=== PATIENT | female | born 1940 | race Two or more races ===

== ENCOUNTER 2020-08-24 06:49 | Inpatient (IN) | payer OTHER ==
[~2020-08-24] VITALS: Ht 152.4 cm; Wt 45.4 kg
--- NOTE | 2020-08-24 07:04 | NUR ---
ED Nurse Note: Pt walked into the ED from home accompanied by son with complaints of dysuria onset 2 months ago. Patient stated pain on epigastric area, 4/10, non radiating. Denies injury/trauma, fever/chills, N/V/D, SOB//CP. Patient is AAOX3 and ambulatory. VSS as documented
[2020-08-24 07:14] VITALS: BP 148/78
--- NOTE | 2020-08-24 07:14 | NUR ---
ED Nurse Note: ERMD at bedside
--- NOTE | 2020-08-24 08:13 | NUR ---
ED Nurse Note: Urine sent.
--- NOTE | 2020-08-24 08:33 | Emergency Room Report ---
History of Present Illness General Chief Complaint: Female Urogenital Problems Source: Family Member Present Illness HPI 79-year-old female presents for evaluation. States she is been having dysuria for the last few months. Denies fevers or chills. Denies flank pain. Denies nausea or vomiting. No other aggravating relieving factors. Denies any other associated symptoms Allergies: Coded Allergies: No Known Allergies (Unverified , 08/24/20) COVID-19 Screening Contact w/high risk pt: No Experienced COVID-19 symptoms?: No COVID-19 Testing performed [employer]: No Patient History Past Medical History: none Past Surgical History: none Pertinent Family History: none Social History: Denies: smoking, alcohol use, drug use Now: No Immunizations: UTD Reviewed Nursing Documentation: PMH: Agreed; PSxH: Agreed Review of Systems All Other Systems: negative except mentioned in HPI Physical Exam Vital Signs Date Time Temp Pulse Resp B/P (MAP) Pulse Ox O2 Delivery O2 Flow Rate FiO2 08/24/20 06:53 98.1 85 15 150/80 (103) 95 Room Air Sp02 EP Interpretation: reviewed, normal General Appearance: no apparent distress, alert, GCS 15, non-toxic Head: normocephalic, atraumatic Eyes: bilateral eye normal inspection, bilateral eye PERRL ENT: hearing grossly normal, normal pharynx, no angioedema, normal voice Neck: full range of motion, supple/symm/no masses Respiratory: chest non-tender, lungs clear, normal breath sounds, speaking full sentences Cardiovascular #1: regular rate, rhythm, no edema Cardiovascular #2: 2+ carotid (R), 2+ carotid (L), 2+ radial (R), 2+ radial (L), 2+ dorsalis pedis (R), 2+ dorsalis pedis (L) Gastrointestinal: normal bowel sounds, non tender, soft, non-distended, no guarding, no rebound Rectal: deferred Genitourinary: normal inspection, no CVA tenderness Musculoskeletal: back normal, normal range of motion, gait/station normal, non- tender Neurologic: alert, motor strength/tone normal, oriented x3, sensory intact, responsive, speech normal Psychiatric: judgement/insight normal, memory normal, mood/affect normal, no suicidal/homicidal ideation Reflexes: 3+ bicep (R), 3+ bicep (L), 3+ tricep (R), 3+ tricep (L), 3+ knee (R), 3+ knee (L) Lymphatic: no adenopathy Medical Decision Making Diagnostic Impression: Primary Impression: Failure to thrive Qualified Codes: R62.7 - Adult failure to thrive Additional Impressions: UTI (urinary tract infection) Qualified Codes: N39.0 - Urinary tract infection, site not specified Weakness ER Course Hospital Course 79-year-old female presenting to ED with generalized weakness, unable to care for herself, poor appetite. also c/o dysuria Differential diagnoses include: Pneumonia, UTI, sepsis, dehydration, NH/unstable angina, failure to thrive Clinical course Patient placed on stretcher. On cardiac rehabilitation specialist with tachycardia. After initial history and physical, I ordered labs, IV fluids UA Labs - no leukocytosis, hb/hct stable, electrolytes ok, UA + bacteria COVID negative given IVFs. given abx. Case discussed with Dr Mancilla and they agreed to admit patient to their service for further care and support I feel this is a highly complex case requiring extensive working including EKG/Rhythm strip, Xray/CT/US, Blood/urine lab work, repeat exams while in ED, and administration of strong opiates/narcotics for pain control, admission to hospital or close patient follow up. Diagnosis - failure to thrive, UTI, weakness Patient admitted to floor in serious condition Laboratory Tests Test 08/24/20 08:13 08/24/20 08:50 Urine Color Yellow Urine Appearance Slightly cloudy Urine pH 5 (4.5-8.0) Urine Specific [place] 1.015 (1.005-1.035) Urine Protein 2+ (NEGATIVE) H Urine Glucose (UA) Negative (NEGATIVE) Urine Ketones 1+ (NEGATIVE) H Urine Blood 2+ (NEGATIVE) H Urine Nitrite Negative (NEGATIVE) Urine Bilirubin Negative (NEGATIVE) Urine Urobilinogen Normal MG/DL (0.0-1.0) Urine Leukocyte Esterase 2+ (NEGATIVE) H Urine RBC 2-4 /HPF (0 - 2) H Urine WBC 5-10 /HPF (0 - 2) H Urine Squamous Epithelial Cells Few /LPF (NONE/OCC) Urine Bacteria Moderate /HPF (NONE) H White Blood Count 7.4 K/UL (4.8-10.8) Red Blood Count 3.78 M/UL (4.20-5.40) L Hemoglobin 11.6 G/DL (12.0-16.0) L Hematocrit 35.5 % (37.0-47.0) L Mean Corpuscular Volume 94 FL (80-99) Mean Corpuscular Hemoglobin 30.7 PG (27.0-31.0) Mean Corpuscular Hemoglobin Concent 32.6 G/DL (32.0-36.0) Red Cell Distribution Width 12.0 % (11.6-14.8) Platelet Count 244 K/UL (150-450) Mean Platelet Volume 7.5 FL (6.5-10.1) Neutrophils (%) (Auto) 75.3 % (45.0-75.0) H Lymphocytes (%) (Auto) 16.7 % (20.0-45.0) L Monocytes (%) (Auto) 5.7 % (1.0-10.0) Eosinophils (%) (Auto) 1.0 % (0.0-3.0) Basophils (%) (Auto) 1.3 % (0.0-2.0) Sodium Level 130 MMOL/L (136-145) L Potassium Level 3.8 MMOL/L (3.5-5.1) Chloride Level 97 MMOL/L (98-107) L Carbon Dioxide Level 21 MMOL/L (21-32) Anion Gap 12 mmol/L (5-15) Blood Urea Nitrogen 18 mg/dL (7-18) Creatinine 1.1 MG/DL (0.55-1.30) Estimat Glomerular Filtration Rate 47.8 mL/min (>60) Glucose Level 106 MG/DL (74-106) Calcium Level 8.8 MG/DL (8.5-10.1) Total Bilirubin 0.4 MG/DL (0.2-1.0) Aspartate Amino Transf (AST/SGOT) 29 U/L (15-37) Alanine Aminotransferase (ALT/SGPT) 14 U/L (12-78) Alkaline Phosphatase 138 U/L (46-116) H Total Protein 8.0 G/DL (6.4-8.2) Albumin 3.4 G/DL (3.4-5.0) Globulin 4.6 g/dL Albumin/Globulin Ratio 0.7 (1.0-2.7) L Lipase 276 U/L (73-393) Last Vital Signs Date Time Temp Pulse Resp B/P (MAP) Pulse Ox O2 Delivery O2 Flow Rate FiO2 08/24/20 07:14 98.1 85 18 148/78 95 Room Air Status: improved Disposition: ADMITTED INPATIENT Condition: Serious Referrals: Roz Mancilla M.D. (PCP) Javi Whitaker MD Aug 24, 2020 08:33
[2020-08-24 08:41] LABS: APPEARANCE,URINE SLIGHTLY CLOUDY; BILIRUBIN, URINE NEGATIVE (NEGATIVE); GLUCOSE, URINE (UA) NEGATIVE (NEGATIVE); KETONES,URINE 1+ (NEGATIVE); LEUKOCYTE ESTERASE ,URINE 2+ (NEGATIVE); NITRITE,URINE NEGATIVE (NEGATIVE); PH,URINE 5 (4.5-8.0); PROTEIN,URINE 2+ (NEGATIVE); UROBILINOGEN,URINE NORMAL MG/DL (0.0-1.0)
[2020-08-24 08:42] LABS: COLOR,URINE YELLOW
--- NOTE | 2020-08-24 08:50 | NUR ---
ED Nurse Note: IV line established. Blood sent to lab.
[2020-08-24] MEDS ORDERED: cefTRIAXone 1 GM in NS 55 ML IVPB ONE (09:00)
[2020-08-24 09:05] VITALS: BP 136/71
[2020-08-24 09:06] LABS: BASOPHILS % (AUTO) 1.3 % (0.0-2.0); HEMATOCRIT 35.5 % (37.0-47.0); HEMOGLOBIN 11.6 G/DL (12.0-16.0); LYMPHOCYTES % (AUTO) 16.7 % (20.0-45.0); MEAN CORPUSCULAR VOLUME 94 FL (80-99); MONOCYTES % (AUTO) 5.7 % (1.0-10.0); NEUTROPHILS % (AUTO) 75.3 % (45.0-75.0); PLATELET COUNT 244 K/UL (150-450); RED BLOOD COUNT 3.78 M/UL (4.20-5.40); WHITE BLOOD COUNT 7.4 K/UL (4.8-10.8)
[2020-08-24 09:15] LABS: CALCIUM 8.8 MG/DL (8.5-10.1); CREATININE 1.1 MG/DL (0.55-1.30); POTASSIUM 3.8 MMOL/L (3.5-5.1)
[2020-08-24 09:20] LABS: ALBUMIN 3.4 G/DL (3.4-5.0); ALBUMIN/GLOBULIN RATIO 0.7 (1.0-2.7); BILIRUBIN,TOTAL 0.4 MG/DL (0.2-1.0)
--- NOTE | 2020-08-24 10:33 | NUR ---
ED Nurse Note: Pt irving to recall the name of her home medications.
[2020-08-24 12:32] VITALS: BP 145/71
--- NOTE | 2020-08-24 12:42 | NUR ---
ED Nurse Note: Reprot given to Angel BARKLEY.
--- NOTE | 2020-08-24 12:43 | NUR ---
EMERGENCY CONTACT: Jackelin (daughter): [phone]
--- NOTE | 2020-08-24 12:58 | NUR ---
TRANSFER TO FLOOR: Patient transferred to [facility] via [facility] accompanied by a RN. Pt AAOx4, no SOB, on RA. IV line on right forearm 20g patent and intact. No skin issues. All belongings sent with the patient.
--- NOTE | 2020-08-24 13:05 | NUR ---
NURSE NOTES: Received patient from ER in stable condition. Alert and oriented x3. No complain of pain or distress at this time. IV dressing intact and dry. Belonging checked. Patient able to ambulated to bathroom with assist. Bed lowest position and side rails up. Call light within reach. Will continue to monitor.
[2020-08-24 13:10] VITALS: BP 157/82
--- NOTE | 2020-08-24 15:22 | NUR ---
NURSE NOTES: Spoke to family member Pancho regarding home medication. Per Pancho: he will bring patient's home medication later.
[2020-08-24 16:00] VITALS: BP 174/95
[2020-08-24] MEDS ORDERED: FLOMAX0.4 MG ORAL (16:01)
[2020-08-24] MEDS ORDERED: OMEPRAZOLE40 M1 ORAL (16:01)
[2020-08-24] MEDS ORDERED: FERROUS SULFAT325 MG ORAL (16:01)
[2020-08-24] MEDS ORDERED: LEVOXYL50 MCG ORAL (16:01)
[2020-08-24] MEDS ORDERED: DONEPEZIL HCL10 MG ORAL (16:01)
[2020-08-24] MEDS ORDERED: GABAPENTIN100 MG ORAL (16:01)
--- NOTE | 2020-08-24 16:33 | History & Physical ---
History of Present Illness General Reason for Hospitalization: Female Urogenital Problems Present Illness HPI 79 year ofd female with history of dementia and HDL presents with failure to thrive and dysuria noted decreased PO intake no chest pain no SOB Allergies: Coded Allergies: No Known Allergies (Unverified , 08/24/20) COVID-19 Screening Contact w/high risk pt: No Experienced COVID-19 symptoms?: No Medication History Scheduled Donepezil Hcl* (Donepezil Hcl*), 10 MG ORAL DAILY, (Reported) Ferrous Sulfate* (Ferrous Sulfate*), 325 MG ORAL TWICE A DAY, (Reported) Gabapentin* (Gabapentin*), 100 MG ORAL THREE TIMES A DAY, (Reported) Levothyroxine Sodium* (Levoxyl*), 50 MCG ORAL DAILY, (Reported) Omeprazole (Omeprazole), 40 MG ORAL DAILY, (Reported) Tamsulosin HCl (Flomax), 0.4 MG ORAL DAILY, (Reported) Patient History Healthcare decision maker Resuscitation status Advanced Directive on File Review of Systems Review of Symptoms General ROS: Generalized weakness Psychological ROS: no depression or mood changes, no memory loss Ophthalmic ROS: no visual changes or eye irritation ENT ROS: no nasal congestion, hearing loss, dizziness Allergy and Immunology ROS: no allergic symptoms or urticaria Hematological and Lymphatic ROS: no swollen glands, unusual bleeding or bruising Endocrine ROS: no polyuria, polydipsia, weight changes, temperature intolerance Respiratory ROS: no cough, shortness of breath, or wheezing Cardiovascular ROS: no chest pain or dyspnea on exertion Gastrointestinal ROS: denies abdominal pain, bright red blood in stool. Musculoskeletal ROS: no myalgias or arthralgias Neurological ROS: no TIA or stroke symptoms Dermatological ROS: no new or changing skin lesions, rashes or pruritis Physical Exam Physical Exam General appearance: alert, cooperative, no distress, appears stated age Head: Normocephalic, without obvious abnormality, atraumatic Eyes: conjunctivae/corneas clear. PERRL, EOM's intact. Fundi benign Throat: Lips, mucosa, and tongue normal. Teeth and gums normal Neck: supple, symmetrical, trachea midline, no adenopathy, thyroid: not enlarged, symmetric, no tenderness/mass/nodules, no carotid bruit and no JVD Lungs: clear to auscultation bilaterally Heart: regular rate and rhythm, S1, S2 normal, no murmur, click, rub or gallop Abdomen: soft, non-tender. Bowel sounds normal. No masses, no organomegaly Extremities: extremities normal, atraumatic, no cyanosis or edema Pulses: 2+ and symmetric Skin: Skin color, texture, turgor normal. No rashes or lesions Neurologic: Grossly normal Last 24 Hour Vital Signs Date Time Temp Pulse Resp B/P (MAP) Pulse Ox O2 Delivery O2 Flow Rate FiO2 08/24/20 13:12 Room Air 08/24/20 12:58 98.1 74 19 145/71 97 Room Air 08/24/20 12:32 98.1 74 19 145/71 97 Room Air 08/24/20 09:05 98.1 78 16 136/71 100 Room Air 08/24/20 07:14 98.1 85 18 148/78 95 Room Air 08/24/20 06:53 98.1 85 15 150/80 (103) 95 Room Air Laboratory Tests Test 08/24/20 08:13 08/24/20 08:50 Urine Color Yellow Urine Appearance Slightly cloudy Urine pH 5 (4.5-8.0) Urine Specific [place] 1.015 (1.005-1.035) Urine Protein 2+ (NEGATIVE) H Urine Glucose (UA) Negative (NEGATIVE) Urine Ketones 1+ (NEGATIVE) H Urine Blood 2+ (NEGATIVE) H Urine Nitrite Negative (NEGATIVE) Urine Bilirubin Negative (NEGATIVE) Urine Urobilinogen Normal MG/DL (0.0-1.0) Urine Leukocyte Esterase 2+ (NEGATIVE) H Urine RBC 2-4 /HPF (0 - 2) H Urine WBC 5-10 /HPF (0 - 2) H Urine Squamous Epithelial Cells Few /LPF (NONE/OCC) Urine Bacteria Moderate /HPF (NONE) H White Blood Count 7.4 K/UL (4.8-10.8) Red Blood Count 3.78 M/UL (4.20-5.40) L Hemoglobin 11.6 G/DL (12.0-16.0) L Hematocrit 35.5 % (37.0-47.0) L Mean Corpuscular Volume 94 FL (80-99) Mean Corpuscular Hemoglobin 30.7 PG (27.0-31.0) Mean Corpuscular Hemoglobin Concent 32.6 G/DL (32.0-36.0) Red Cell Distribution Width 12.0 % (11.6-14.8) Platelet Count 244 K/UL (150-450) Mean Platelet Volume 7.5 FL (6.5-10.1) Neutrophils (%) (Auto) 75.3 % (45.0-75.0) H Lymphocytes (%) (Auto) 16.7 % (20.0-45.0) L Monocytes (%) (Auto) 5.7 % (1.0-10.0) Eosinophils (%) (Auto) 1.0 % (0.0-3.0) Basophils (%) (Auto) 1.3 % (0.0-2.0) Sodium Level 130 MMOL/L (136-145) L Potassium Level 3.8 MMOL/L (3.5-5.1) Chloride Level 97 MMOL/L (98-107) L Carbon Dioxide Level 21 MMOL/L (21-32) Anion Gap 12 mmol/L (5-15) Blood Urea Nitrogen 18 mg/dL (7-18) Creatinine 1.1 MG/DL (0.55-1.30) Estimat Glomerular Filtration Rate 47.8 mL/min (>60) Glucose Level 106 MG/DL (74-106) Calcium Level 8.8 MG/DL (8.5-10.1) Total Bilirubin 0.4 MG/DL (0.2-1.0) Aspartate Amino Transf (AST/SGOT) 29 U/L (15-37) Alanine Aminotransferase (ALT/SGPT) 14 U/L (12-78) Alkaline Phosphatase 138 U/L (46-116) H Total Protein 8.0 G/DL (6.4-8.2) Albumin 3.4 G/DL (3.4-5.0) Globulin 4.6 g/dL Albumin/Globulin Ratio 0.7 (1.0-2.7) L Lipase 276 U/L (73-393) Microbiology Date/Time Source Procedure Growth Status 08/24/20 09:00 Nasopharynx SARS-CoV-2 RdRp Gene Assay - Final Complete Height (Feet): 5 Height (Inches): 0.00 Weight (Pounds): 100 Medications Current Medications Medications (Trade) Dose Ordered Sig/Demetrice Route PRN Reason Start Time Stop Time Status Last Admin Dose Admin Acetaminophen (Tylenol) 650 mg Q6H PRN ORAL For Pain 08/24/20 13:30 09/23/20 13:29 Ceftriaxone Sodium 1 gm/ Dextrose 55 ml @ 110 mls/hr Q24H IVPB 08/25/20 09:00 09/01/20 08:59 Assessment/Plan Diagnosis [place] I: #UTI #Dehydration #failure to thirve #inability to care for self #hypothyroidism #urinary retention - admit inpatient - IVF - ceftriaxone 1g daily - levothyroxine - flomax - hydralazine prn for BP control - PT eval - snf eval - monitor omargarry ' [facility] Hospital declaration I spent 70 minutes on this patient's case, and 35 minutes was dedicated to co unseling and/or care coordination. MIPS ([employer]-based Incentive Payment System) Applicable CPT: 71666, 41698 CHECK ALL THAT ARE MET: Measure #5 (CHF): All ages. Prescribe SALIMA/ARB upon discharge for patients with left ventricular systolic dysfunction. If not, the reason is clearly documented in the medical chart. Measure #8 (CHF): All ages. Prescribe a beta mattie upon discharge for patients with left ventricular systolic dysfunction. If not, the reason is clearly documented in the medical chart. Measure #47 Advance care plan or surrogate decision maker documented in the medical record. Measure #130 The provider has documented, updated, or reviewed the patients current medication list and has documented it in the patients note. Measure #374 (All): Send report to referring provider. Measure #407(Sepsis due to MSSA bacteremia): Age 18+ Patient treated with a beta-lactam antibiotic (Nafcillin, Oxacillin or Cefazolin) as definitive therapy. MEDICAL COMPLEXITY High complexity medical decision making (need 2/3 categories) Problem - need 4 points Acute/new problem with new plan for workup (4 points, 1 max) Acute/new problem without additional workup (3 points, 1 max) Unstable chronic problem actively being managed (2 point each, 2 max) Stable chronic problem actively being managed (1 point each, 2 max) Self-limited/transient process (constipation, muscle ache, etc) (1 point each, 2 max) Data - need 4 points Reviewed labs/imaging studies (1 points, 2 max) Independent review of imaging (EKG, xrays, etc) (2 points, 2 max) Discussed case with consult/other MD/RN (2 points, 2 max) High Risk - qualify if have one of the following: Severe exacerbation of acute problem, acute mental status change, IV narcotics, monitoring drug levels (vancomycin, INR, tacrolimus etc) Roz Mancilla M.D. Aug 24, 2020 16:33
--- NOTE | 2020-08-24 18:03 | NUR ---
NURSE NOTES: Spoke to regarding home medication and high blood pressure and new order received. Order read back and carried out.
[2020-08-24] MEDS: HydrALAZINE 50mg tab ORAL PRN (18:28)
--- NOTE | 2020-08-24 19:30 | NUR ---
NURSE HAND-OFF: Important Events on Shift: new admission Patient Status: Stable Diet: Regular Pending Orders: N/A Pending Results/Labs:CBC, BMP, Mg, Phos on 08/25 Pending MD notification:N/A Latest Vital Signs: Temperature 98.1 , Pulse 101 , B/P 174 /95 , Respiratory Rate 16 , O2 SAT 96 , Room Air, O2 Flow Rate . Vital Sign Comment: Stable Latest Quiroz Fall Score: 50 Fall Risk: High Risk Safety Measures: Call light Within Reach, Bed Alarm Zone 1, Side Rails Side Rails x2, Bed position Low and Locked. Fall Precautions: Yellow Socks Door Sign Patient Fall Education Report given to Caitlyn BARKLEY. Patient in stable condition.
[2020-08-24 20:08] VITALS: BP 160/89
--- NOTE | 2020-08-24 22:00 | Consultation ---
DATE OF CONSULTATION: 08/24/2020 PULMONARY CONSULTATION CONSULTING PHYSICIAN: Hayden Fernandes M.D. HISTORY OF PRESENT ILLNESS: This is an 79-year-old female, who came to the hospital with dysuria. She was admitted to the hospital for further workup and care. At this time, she denies any active chest pain or shortness of breath. She was seen and worked up and found to be early in the hospitalization. REVIEW OF SYSTEMS: Denies any headaches, hematemesis, melena, hematochezia, night sweats, or weight loss. PAST MEDICAL HISTORY: Notable for dysuria only. ALLERGIES: None reported. HOME MEDICATIONS: Reviewed and reconciled in the chart. PHYSICAL EXAMINATION: GENERAL: Reveals an 79-year-old female. VITAL SIGNS: Blood pressure 170/90, heart rate is 94, respirations 18, O2 saturation on room air. HEENT: Unremarkable. LUNGS: Clear breath sounds bilaterally. ABDOMEN: Soft. EXTREMITIES: There is no edema. NEUROLOGIC: Nonfocal. LABORATORY AND DIAGNOSTIC DATA: Laboratory testing shows normal CBC and BMP. Hemoglobin 11.6. Sodium 130. Her x-ray of chest is not available for review. IMPRESSION: 1. Failure to thrive. 2. UTI. DISCUSSION: Admit to the hospital. Continue current medications and care. We will follow carefully and event staff. At this time, respiratory status is stable. Hayden Fernandes M.D. DR: PLACIDO JOB#: [id number] CC:
--- NOTE | 2020-08-24 23:01 | NUR ---
nurse's notes: received patient awake, alert oriented x 2; somewhat confused and forgetful. was looking for and 3 ladies who brought her to the ED bed alarm on; zone 2. fall risk bracelet on. skin intact; able to ambulate with standby assist. orders noted and continued. plan of care and education discussed with patient but needs reinforcement. will continue to monitor.
[2020-08-25] VITALS (7 sets, daily range): BP systolic 146–165; BP diastolic 80–96
--- NOTE | 2020-08-25 06:34 | NUR ---
NURSE HAND-OFF: Important Events on Shift: patient was confused most of the night but less restless; able to get some sleep; no falls; no new skin issues; stable; in no apparent distress Patient Status: stable Diet: see chart Pending Orders: see chart Pending Results/Labs: see chart Pending MD notification: see chart Latest Vital Signs: Temperature 98.4 , Pulse 104 , B/P 158 /83 , Respiratory Rate 20 , O2 SAT 92 , Room Air, O2 Flow Rate . Vital Sign Comment: see chart Latest Quiroz Fall Score: 50 Fall Risk: High Risk Safety Measures: Call light Within Reach, Bed Alarm Zone 2, Side Rails Side Rails x2, Bed position Low and Locked. Fall Precautions: Yellow Socks Door Sign Patient Fall Education Report will be given to Ms Clifford RN.
--- NOTE | 2020-08-25 07:15 | NUR ---
NURSE NOTES: Received report from Caitlyn BARKLEY. Patient is awake in bed, dioriented and confused. Patient is calm. IV patent and asymptomatic. On room air, no Sob, not in acute distress. Bed in lowest position, call light in reach, side rails up x3, bed alarm on.
[2020-08-25 08:01] LABS: BASOPHILS % (AUTO) 1.1 % (0.0-2.0); EOSINOPHILS % (AUTO) 1.1 % (0.0-3.0); HEMATOCRIT 35.3 % (37.0-47.0); LYMPHOCYTES % (AUTO) 15.3 % (20.0-45.0); MEAN CORPUSCULAR VOLUME 93 FL (80-99); MONOCYTES % (AUTO) 6.8 % (1.0-10.0); NEUTROPHILS % (AUTO) 75.7 % (45.0-75.0); PLATELET COUNT 277 K/UL (150-450); RED BLOOD COUNT 3.79 M/UL (4.20-5.40); WHITE BLOOD COUNT 8.7 K/UL (4.8-10.8)
[2020-08-25 08:23] LABS: ANION GAP 12 mmol/L (5-15); BLOOD UREA NITROGEN 11 mg/dL (7-18); CALCIUM 8.9 MG/DL (8.5-10.1); CARBON DIOXIDE 22 MMOL/L (21-32); CHLORIDE 99 MMOL/L (98-107); CREATININE 0.9 MG/DL (0.55-1.30); POTASSIUM 3.5 MMOL/L (3.5-5.1); SODIUM 133 MMOL/L (136-145)
[2020-08-25] MEDS: Donepezil 10mg tab ORAL SCH ×2 (09:00→09:55)
[2020-08-25] MEDS: Tamsulosin 0.4mg cap ORAL SCH ×2 (09:00→09:55)
[2020-08-25] MEDS: cefTRIAXone 1 GM in D5W 55 ML IVPB SCH (09:54)
[2020-08-25] MEDS: HydrALAZINE 50mg tab ORAL PRN (10:12)
--- NOTE | 2020-08-25 10:52 | NUR ---
CASE MANAGEMENT:REVIEW 79 YR OLD FEMALE WALKED INTO ER ACCOMPANIED BY SON CC: PAINFUL URINATION. NOT EATING OR DRINKING SI:UTI. FTT. WEAKNESS 98.0 85 15 150/80 95% ON RA NA-130 URINE(+) BACTERIA WBC+5-10 IS: 1L NS BOLUS IV ROCEPHIN Q24 URINE CULTURE : TO MED/SURG [facility]
--- NOTE | 2020-08-25 12:10 | Pulmonology Progress Note ---
Subjective ROS Limited/Unobtainable: Yes HEENT: Repors: no symptoms Respiratory: Reports: no symptoms Cardiovascular: Reports: no symptoms Allergies: Coded Allergies: No Known Allergies (Unverified , 08/24/20) Objective Last 24 Hour Vital Signs Date Time Temp Pulse Resp B/P (MAP) Pulse Ox O2 Delivery O2 Flow Rate FiO2 08/25/20 10:12 160/91 08/25/20 08:00 97.6 97 18 160/91 (114) 95 08/25/20 04:00 98.7 99 18 158/93 (114) 96 08/25/20 00:00 98.4 104 20 158/83 (108) 92 08/24/20 21:00 Room Air 08/24/20 20:08 97.9 116 20 160/89 (112) 95 08/24/20 18:28 174/95 08/24/20 16:00 98.1 101 16 174/95 (121) 96 08/24/20 13:12 Room Air 08/24/20 13:10 97.9 91 16 157/82 (107) 98 08/24/20 12:58 98.1 74 19 145/71 97 Room Air 08/24/20 12:32 98.1 74 19 145/71 97 Room Air Intake and Output 08/24/20 08/25/20 19:00 07:00 Intake Total 400 ml 360 ml Balance 400 ml 360 ml Intake Oral 400 ml Other 360 ml # Voids 2 General Appearance: no acute distress Respiratory: chest wall non-tender, lungs clear Cardiovascular: normal rate, regular rhythm Microbiology Date/Time Source Procedure Growth Status 08/24/20 09:00 Nasopharynx SARS-CoV-2 RdRp Gene Assay - Final Complete Laboratory Tests 08/25/20 06:30: White Blood Count 8.7, Red Blood Count 3.79L, Hemoglobin 12.0, Hematocrit 35.3L, Mean Corpuscular Volume 93, Mean Corpuscular Hemoglobin 31.6H, Mean Corpuscular Hemoglobin Concent 33.9, Red Cell Distribution Width 12.0, Platelet Count 277, Mean Platelet Volume 7.0, Neutrophils (%) (Auto) 75.7H, Lymphocytes (%) (Auto) 15.3L, Monocytes (%) (Auto) 6.8, Eosinophils (%) (Auto) 1.1, Basophils (%) (Auto) 1.1, Sodium Level 133L, Potassium Level 3.5, Chloride Level 99, Carbon Dioxide Level 22, Anion Gap 12, Blood Urea Nitrogen 11, Creatinine 0.9, Estimat Glomerular Filtration Rate > 60, Glucose Level 88, Calcium Level 8.9, Phosphorus Level 3.0, Magnesium Level 1.9 Current Medications Medications (Trade) Dose Ordered Sig/Demetrice Route PRN Reason Start Time Stop Time Status Last Admin Dose Admin Acetaminophen (Tylenol) 650 mg Q6H PRN ORAL For Pain 08/24/20 13:30 09/23/20 13:29 Ceftriaxone Sodium 1 gm/ Dextrose 55 ml @ 110 mls/hr Q24H IVPB 08/25/20 09:00 09/01/20 08:59 08/25/20 09:54 Donepezil HCl (Aricept) 10 mg DAILY ORAL 08/25/20 09:00 09/24/20 08:59 Ferrous Sulfate (Feosol) 325 mg TWICE A DAY ORAL 08/25/20 09:00 11/23/20 08:59 Gabapentin (Neurontin) 100 mg THREE TIMES A DAY ORAL 08/25/20 09:00 09/24/20 08:59 Hydralazine HCl (Apresoline) 50 mg Q6H PRN ORAL SBP >140 08/24/20 18:00 11/22/20 17:59 08/25/20 10:12 Levothyroxine Sodium (Synthroid) 50 mcg DAILY@0630 ORAL 08/25/20 06:30 09/24/20 06:29 08/25/20 05:36 Pantoprazole (Protonix) 40 mg DAILY ORAL 08/25/20 09:00 09/24/20 08:59 Tamsulosin HCl (Flomax) 0.4 mg DAILY ORAL 08/25/20 09:00 09/24/20 08:59 Assessment/Plan Assessment/Plan 1. Failure to thrive. 2. UTI c/s pending DISCUSSION: Continue current medications and care. Defer to PCP poor oral intake, low Na We will follow carefully and base draw operator. At this time, respiratory status is stable. Elda Lee MORTAR MAN Aug 25, 2020 12:10
--- NOTE | 2020-08-25 14:33 | NUR ---
NURSE NOTES: Patient is not eating 0% breakfast, Dr Mancilla aware. Initiated IVF per order. Patient is also refusing all PO medications, Dr wolfe.
--- NOTE | 2020-08-25 15:05 | Internal Med Progress Note ---
Subjective Physician Name Roz Mancilla Attending Physician Roz Mancilla M.D. Current Medications Medications (Trade) Dose Ordered Sig/Demetrice Route PRN Reason Start Time Stop Time Status Last Admin Dose Admin Acetaminophen (Tylenol) 650 mg Q6H PRN ORAL For Pain 08/24/20 13:30 09/23/20 13:29 Ceftriaxone Sodium 1 gm/ Dextrose 55 ml @ 110 mls/hr Q24H IVPB 08/25/20 09:00 09/01/20 08:59 08/25/20 09:54 Dextrose/ Electrolytes 1,000 ml @ 75 mls/hr [id number] IV 08/25/20 14:00 09/24/20 13:59 08/25/20 14:11 Donepezil HCl (Aricept) 10 mg DAILY ORAL 08/25/20 09:00 09/24/20 08:59 Ferrous Sulfate (Feosol) 325 mg TWICE A DAY ORAL 08/25/20 09:00 11/23/20 08:59 Gabapentin (Neurontin) 100 mg THREE TIMES A DAY ORAL 08/25/20 09:00 09/24/20 08:59 Hydralazine HCl (Apresoline) 50 mg Q6H PRN ORAL SBP >140 08/24/20 18:00 11/22/20 17:59 08/25/20 10:12 Levothyroxine Sodium (Synthroid) 50 mcg DAILY@0630 ORAL 08/25/20 06:30 09/24/20 06:29 08/25/20 05:36 Pantoprazole (Protonix) 40 mg DAILY ORAL 08/25/20 09:00 09/24/20 08:59 Tamsulosin HCl (Flomax) 0.4 mg DAILY ORAL 08/25/20 09:00 09/24/20 08:59 Allergies: Coded Allergies: No Known Allergies (Unverified , 08/24/20) ROS Limited/Unobtainable: No Constitutional: Reports: weakness Subjective Refusing meds yesterday evaluated by psych Objective Last Vital Signs Date Time Temp Pulse Resp B/P (MAP) Pulse Ox O2 Delivery O2 Flow Rate FiO2 08/25/20 12:00 98.9 110 18 165/95 (118) 95 08/24/20 21:00 Room Air Laboratory Tests Test 08/25/20 06:30 White Blood Count 8.7 K/UL (4.8-10.8) Red Blood Count 3.79 M/UL (4.20-5.40) L Hemoglobin 12.0 G/DL (12.0-16.0) Hematocrit 35.3 % (37.0-47.0) L Mean Corpuscular Volume 93 FL (80-99) Mean Corpuscular Hemoglobin 31.6 PG (27.0-31.0) H Mean Corpuscular Hemoglobin Concent 33.9 G/DL (32.0-36.0) Red Cell Distribution Width 12.0 % (11.6-14.8) Platelet Count 277 K/UL (150-450) Mean Platelet Volume 7.0 FL (6.5-10.1) Neutrophils (%) (Auto) 75.7 % (45.0-75.0) H Lymphocytes (%) (Auto) 15.3 % (20.0-45.0) L Monocytes (%) (Auto) 6.8 % (1.0-10.0) Eosinophils (%) (Auto) 1.1 % (0.0-3.0) Basophils (%) (Auto) 1.1 % (0.0-2.0) Sodium Level 133 MMOL/L (136-145) L Potassium Level 3.5 MMOL/L (3.5-5.1) Chloride Level 99 MMOL/L (98-107) Carbon Dioxide Level 22 MMOL/L (21-32) Anion Gap 12 mmol/L (5-15) Blood Urea Nitrogen 11 mg/dL (7-18) Creatinine 0.9 MG/DL (0.55-1.30) Estimat Glomerular Filtration Rate > 60 mL/min (>60) Glucose Level 88 MG/DL (74-106) Calcium Level 8.9 MG/DL (8.5-10.1) Phosphorus Level 3.0 MG/DL (2.5-4.9) Magnesium Level 1.9 MG/DL (1.8-2.4) Microbiology Date/Time Source Procedure Growth Status 08/24/20 09:00 Nasopharynx SARS-CoV-2 RdRp Gene Assay - Final Complete Intake and Output 08/24/20 08/25/20 19:00 07:00 Intake Total 400 ml 360 ml Balance 400 ml 360 ml Intake Oral 400 ml Other 360 ml # Voids 2 Objective General appearance: alert, cooperative, no distress, appears stated age Head: Normocephalic, without obvious abnormality, atraumatic Eyes: conjunctivae/corneas clear. PERRL, EOM's intact. Fundi benign Throat: Lips, mucosa, and tongue normal. Teeth and gums normal Neck: supple, symmetrical, trachea midline, no adenopathy, thyroid: not enlarged, symmetric, no tenderness/mass/nodules, no carotid bruit and no JVD Lungs: clear to auscultation bilaterally Heart: regular rate and rhythm, S1, S2 normal, no murmur, click, rub or gallop Abdomen: soft, non-tender. Bowel sounds normal. No masses, no organomegaly Extremities: extremities normal, atraumatic, no cyanosis or edema Pulses: 2+ and symmetric Skin: Skin color, texture, turgor normal. No rashes or lesions Neurologic: Grossly normal Assessment/Plan Assessment/Plan #UTI #Hyponatremia #Dehydration #failure to thirve #inability to care for self #hypothyroidism #urinary retention - admit inpatient - IVF - ceftriaxone 1g daily - levothyroxine - flomax - hydralazine prn for BP control - PT eval - snf eval - monitor Roz Newell M.D. Aug 25, 2020 15:05
--- NOTE | 2020-08-25 15:56 | NUR ---
NURSE NOTES: Blood pressure 164/97, Dr Mancilla aware. Clonidine 0.1 mg patch ordered.
--- NOTE | 2020-08-25 17:01 | Consultation ---
History of Present Illness General Date patient seen: Aug 25, 2020 Reason for Hospitalization: Female Urogenital Problems Present Illness HPI 79-year-old female failure to thrive presented with dysuria complaining of pelvic abdominal pain surgical called to assist with care. Cramping pain is out of for a few days has not been eating well. BMI low labs noted Allergies: Coded Allergies: No Known Allergies (Unverified , 08/24/20) COVID-19 Screening Contact w/high risk pt: No Experienced COVID-19 symptoms?: No Medication History Scheduled Donepezil Hcl* (Donepezil Hcl*), 10 MG ORAL DAILY, (Reported) Ferrous Sulfate* (Ferrous Sulfate*), 325 MG ORAL TWICE A DAY, (Reported) Gabapentin* (Gabapentin*), 100 MG ORAL THREE TIMES A DAY, (Reported) Levothyroxine Sodium* (Levoxyl*), 50 MCG ORAL DAILY, (Reported) Omeprazole (Omeprazole), 40 MG ORAL DAILY, (Reported) Tamsulosin HCl (Flomax), 0.4 MG ORAL DAILY, (Reported) Patient History History Provided By: Patient, Medical Record, PMD Healthcare decision maker Resuscitation status Advanced Directive on File Past Medical/Surgical History Past Medical/Surgical History: (1) Failure to thrive (2) Weakness (3) UTI (urinary tract infection) (4) Adult failure to thrive Review of Systems Review of Symptoms General ROS: no weight loss or fever Psychological ROS: no depression or mood changes, no memory loss Ophthalmic ROS: no visual changes or eye irritation ENT ROS: no nasal congestion, hearing loss, dizziness Allergy and Immunology ROS: no allergic symptoms or urticaria Hematological and Lymphatic ROS: no swollen glands, unusual bleeding or bruising Endocrine ROS: no polyuria, polydipsia, weight changes, temperature intolerance Respiratory ROS: no cough, shortness of breath, or wheezing Cardiovascular ROS: no chest pain or dyspnea on exertion Gastrointestinal ROS: denies abdominal pain, bright red blood in stool. Musculoskeletal ROS: no myalgias or arthralgias Neurological ROS: no TIA or stroke symptoms Dermatological ROS: no new or changing skin lesions, rashes or pruritis Physical Exam Physical Exam General appearance: alert, cooperative, no distress, appears stated age Head: Normocephalic, without obvious abnormality, atraumatic Eyes: conjunctivae/corneas clear. PERRL, EOM's intact. Fundi benign Throat: Lips, mucosa, and tongue normal. Teeth and gums normal Neck: supple, symmetrical, trachea midline, no adenopathy, thyroid: not enlarged, symmetric, no tenderness/mass/nodules, no carotid bruit and no JVD Lungs: clear to auscultation bilaterally Heart: regular rate and rhythm, S1, S2 normal, no murmur, click, rub or gallop Abdomen: soft, non-tender. Bowel sounds normal. No masses, no organomegaly Extremities: extremities normal, atraumatic, no cyanosis or edema Pulses: 2+ and symmetric Skin: Skin color, texture, turgor normal. No rashes or lesions Neurologic: Grossly normal Last 24 Hour Vital Signs Date Time Temp Pulse Resp B/P (MAP) Pulse Ox O2 Delivery O2 Flow Rate FiO2 08/25/20 16:00 97.7 115 18 164/96 (118) 96 08/25/20 12:00 98.9 110 18 165/95 (118) 95 08/25/20 10:12 160/91 08/25/20 09:00 Room Air 08/25/20 08:00 97.6 97 18 160/91 (114) 95 08/25/20 04:00 98.7 99 18 158/93 (114) 96 08/25/20 00:00 98.4 104 20 158/83 (108) 92 08/24/20 21:00 Room Air 08/24/20 20:08 97.9 116 20 160/89 (112) 95 08/24/20 18:28 174/95 Intake and Output 08/24/20 08/25/20 19:00 07:00 Intake Total 400 ml 360 ml Balance 400 ml 360 ml Intake Oral 400 ml Other 360 ml # Voids 2 Laboratory Tests Test 08/25/20 06:30 White Blood Count 8.7 K/UL (4.8-10.8) Red Blood Count 3.79 M/UL (4.20-5.40) L Hemoglobin 12.0 G/DL (12.0-16.0) Hematocrit 35.3 % (37.0-47.0) L Mean Corpuscular Volume 93 FL (80-99) Mean Corpuscular Hemoglobin 31.6 PG (27.0-31.0) H Mean Corpuscular Hemoglobin Concent 33.9 G/DL (32.0-36.0) Red Cell Distribution Width 12.0 % (11.6-14.8) Platelet Count 277 K/UL (150-450) Mean Platelet Volume 7.0 FL (6.5-10.1) Neutrophils (%) (Auto) 75.7 % (45.0-75.0) H Lymphocytes (%) (Auto) 15.3 % (20.0-45.0) L Monocytes (%) (Auto) 6.8 % (1.0-10.0) Eosinophils (%) (Auto) 1.1 % (0.0-3.0) Basophils (%) (Auto) 1.1 % (0.0-2.0) Sodium Level 133 MMOL/L (136-145) L Potassium Level 3.5 MMOL/L (3.5-5.1) Chloride Level 99 MMOL/L (98-107) Carbon Dioxide Level 22 MMOL/L (21-32) Anion Gap 12 mmol/L (5-15) Blood Urea Nitrogen 11 mg/dL (7-18) Creatinine 0.9 MG/DL (0.55-1.30) Estimat Glomerular Filtration Rate > 60 mL/min (>60) Glucose Level 88 MG/DL (74-106) Calcium Level 8.9 MG/DL (8.5-10.1) Phosphorus Level 3.0 MG/DL (2.5-4.9) Magnesium Level 1.9 MG/DL (1.8-2.4) Height (Feet): 5 Height (Inches): 0.00 Weight (Pounds): 100 Medications Current Medications Medications (Trade) Dose Ordered Sig/Demetrice Route PRN Reason Start Time Stop Time Status Last Admin Dose Admin Acetaminophen (Tylenol) 650 mg Q6H PRN ORAL For Pain 08/24/20 13:30 09/23/20 13:29 Amlodipine Besylate (Norvasc) 5 mg Q12HR ORAL 08/25/20 21:00 09/24/20 20:59 Ceftriaxone Sodium 1 gm/ Dextrose 55 ml @ 110 mls/hr Q24H IVPB 08/25/20 09:00 09/01/20 08:59 08/25/20 09:54 Clonidine HCl (Catapres TTS-1) 1 patch QWEEK TDERMAL 08/25/20 17:00 11/23/20 16:59 Dextrose/ Electrolytes 1,000 ml @ 75 mls/hr [id number] IV 08/25/20 14:00 09/24/20 13:59 08/25/20 14:11 Donepezil HCl (Aricept) 10 mg DAILY ORAL 08/25/20 09:00 09/24/20 08:59 Ferrous Sulfate (Feosol) 325 mg TWICE A DAY ORAL 08/25/20 09:00 11/23/20 08:59 Gabapentin (Neurontin) 100 mg THREE TIMES A DAY ORAL 08/25/20 09:00 09/24/20 08:59 Hydralazine HCl (Apresoline) 50 mg Q6H PRN ORAL SBP >140 08/24/20 18:00 11/22/20 17:59 08/25/20 10:12 Levothyroxine Sodium (Synthroid) 50 mcg DAILY@0630 ORAL 08/25/20 06:30 09/24/20 06:29 08/25/20 05:36 Pantoprazole (Protonix) 40 mg DAILY ORAL 08/25/20 09:00 09/24/20 08:59 Tamsulosin HCl (Flomax) 0.4 mg DAILY ORAL 08/25/20 09:00 09/24/20 08:59 Assessment/Plan Problem List: (1) Failure to thrive SNOMED: 97877753 Qualifiers: Qualified Codes: R62.7 - Adult failure to thrive (2) Weakness ICD Codes: R53.1 - Weakness SNOMED: 13062172 (3) UTI (urinary tract infection) ICD Codes: N39.0 - Urinary tract infection, site not specified SNOMED: 55433536 Qualifiers: Qualified Codes: N39.0 - Urinary tract infection, site not specified (4) Adult failure to thrive Assessment & Plan: poor po intake uti on abx labs noted bmi low not eating well may really need to consider alternative nutrition cont push encourage po intake DAILY ESTIMATED NEEDS: Needs based on Underweight/ 40.3kg 30-35 kcals/kg 8040-9532 total kcals 1-1.5 g protein/kg 40-60 g total protein 25-30 mL/kg 1795-9208 total fluid mLs NUTRITION DIAGNOSIS: Increased kcal/prot needs R/T underweight status as evidenced by pt @ 89% IBW w/ BMI of 17.4, low BMI per guidelines, admitted w/ FTT dx. CURRENT DIET:REGULAR PO DIET RECOMMENDATIONS: Maintain liberalized regular diet/ texture per VOCATIONAL REHABILITATION COUNSELOR ADDITIONAL RECOMMENDATIONS: * Calibrated bedscale wt * Ensure Enlive TID w/ meals (350kcal/20g prot each) * F/up w/ VOCATIONAL REHABILITATION COUNSELOR rec regarding texture * MVI x 1 * Maintain D5 w/ poor PO ICD Codes: R62.7 - Adult failure to thrive SNOMED: 478158096 Geronimo Ybarra Aug 25, 2020 17:01
--- NOTE | 2020-08-25 18:57 | Consultation ---
History of Present Illness General Date patient seen: Aug 24, 2020 Chief Complaint: Female Urogenital Problems Reason for Consultation: ams Present Illness HPI 79 year ofd female with history of dementia and HDL presents with failure to thrive and dysuria noted decreased PO intake Wakes up tracks with eyes but confused Allergies: Coded Allergies: No Known Allergies (Unverified , 08/24/20) Medication History Scheduled Donepezil Hcl* (Donepezil Hcl*), 10 MG ORAL DAILY, (Reported) Ferrous Sulfate* (Ferrous Sulfate*), 325 MG ORAL TWICE A DAY, (Reported) Gabapentin* (Gabapentin*), 100 MG ORAL THREE TIMES A DAY, (Reported) Levothyroxine Sodium* (Levoxyl*), 50 MCG ORAL DAILY, (Reported) Omeprazole (Omeprazole), 40 MG ORAL DAILY, (Reported) Tamsulosin HCl (Flomax), 0.4 MG ORAL DAILY, (Reported) Patient History Healthcare decision maker Resuscitation status Advanced Directive on File Physical Exam General Appearance: confused Lines, tubes and drains: peripheral HEENT: atraumatic, anicteric Neck: non-tender Respiratory/Chest: chest wall non-tender Cardiovascular/Chest: normal peripheral pulses Abdomen: non tender Extremities: non-tender Skin Exam: normal pigmentation Neurologic: table saw operator II-XII grossly normal Physical Exam Narrative Head: normocophalic Neck: no rigidity EENT: benign Neurologic Exam Objective Wakes up tracks with eyes but confused NC AT moves all 4 to stimuli no distress skin dry Last 24 Hour Vital Signs Date Time Temp Pulse Resp B/P (MAP) Pulse Ox O2 Delivery O2 Flow Rate FiO2 08/25/20 18:00 146/80 (102) 08/25/20 17:22 164/96 08/25/20 16:00 97.7 115 18 164/96 (118) 96 08/25/20 12:00 98.9 110 18 165/95 (118) 95 08/25/20 10:12 160/91 08/25/20 09:00 Room Air 08/25/20 08:00 97.6 97 18 160/91 (114) 95 08/25/20 04:00 98.7 99 18 158/93 (114) 96 08/25/20 00:00 98.4 104 20 158/83 (108) 92 08/24/20 21:00 Room Air 08/24/20 20:08 97.9 116 20 160/89 (112) 95 Intake and Output 08/24/20 08/25/20 19:00 07:00 Intake Total 400 ml 360 ml Balance 400 ml 360 ml Intake Oral 400 ml Other 360 ml # Voids 2 Laboratory Tests Test 08/25/20 06:30 White Blood Count 8.7 K/UL (4.8-10.8) Red Blood Count 3.79 M/UL (4.20-5.40) L Hemoglobin 12.0 G/DL (12.0-16.0) Hematocrit 35.3 % (37.0-47.0) L Mean Corpuscular Volume 93 FL (80-99) Mean Corpuscular Hemoglobin 31.6 PG (27.0-31.0) H Mean Corpuscular Hemoglobin Concent 33.9 G/DL (32.0-36.0) Red Cell Distribution Width 12.0 % (11.6-14.8) Platelet Count 277 K/UL (150-450) Mean Platelet Volume 7.0 FL (6.5-10.1) Neutrophils (%) (Auto) 75.7 % (45.0-75.0) H Lymphocytes (%) (Auto) 15.3 % (20.0-45.0) L Monocytes (%) (Auto) 6.8 % (1.0-10.0) Eosinophils (%) (Auto) 1.1 % (0.0-3.0) Basophils (%) (Auto) 1.1 % (0.0-2.0) Sodium Level 133 MMOL/L (136-145) L Potassium Level 3.5 MMOL/L (3.5-5.1) Chloride Level 99 MMOL/L (98-107) Carbon Dioxide Level 22 MMOL/L (21-32) Anion Gap 12 mmol/L (5-15) Blood Urea Nitrogen 11 mg/dL (7-18) Creatinine 0.9 MG/DL (0.55-1.30) Estimat Glomerular Filtration Rate > 60 mL/min (>60) Glucose Level 88 MG/DL (74-106) Calcium Level 8.9 MG/DL (8.5-10.1) Phosphorus Level 3.0 MG/DL (2.5-4.9) Magnesium Level 1.9 MG/DL (1.8-2.4) Height (Feet): 5 Height (Inches): 0.00 Weight (Pounds): 100 Medications Current Medications Medications (Trade) Dose Ordered Sig/Demetrice Route PRN Reason Start Time Stop Time Status Last Admin Dose Admin Acetaminophen (Tylenol) 650 mg Q6H PRN ORAL For Pain 08/24/20 13:30 09/23/20 13:29 Amlodipine Besylate (Norvasc) 5 mg Q12HR ORAL 08/25/20 21:00 09/24/20 20:59 Ceftriaxone Sodium 1 gm/ Dextrose 55 ml @ 110 mls/hr Q24H IVPB 08/25/20 09:00 09/01/20 08:59 08/25/20 09:54 Clonidine HCl (Catapres TTS-1) 1 patch QWEEK TDERMAL 08/25/20 17:00 11/23/20 16:59 08/25/20 17:22 Dextrose/ Electrolytes 1,000 ml @ 75 mls/hr [id number] IV 08/25/20 14:00 09/24/20 13:59 08/25/20 14:11 Donepezil HCl (Aricept) 10 mg DAILY ORAL 08/25/20 09:00 09/24/20 08:59 Ferrous Sulfate (Feosol) 325 mg TWICE A DAY ORAL 08/25/20 09:00 11/23/20 08:59 Gabapentin (Neurontin) 100 mg THREE TIMES A DAY ORAL 08/25/20 09:00 09/24/20 08:59 Hydralazine HCl (Apresoline) 50 mg Q6H PRN ORAL SBP >140 08/24/20 18:00 11/22/20 17:59 08/25/20 10:12 Levothyroxine Sodium (Synthroid) 50 mcg DAILY@0630 ORAL 08/25/20 06:30 09/24/20 06:29 08/25/20 05:36 Pantoprazole (Protonix) 40 mg DAILY ORAL 08/25/20 09:00 09/24/20 08:59 Tamsulosin HCl (Flomax) 0.4 mg DAILY ORAL 08/25/20 09:00 09/24/20 08:59 Assessment/Plan Problem List: (1) Failure to thrive SNOMED: 17734411 Qualifiers: Qualified Codes: R62.7 - Adult failure to thrive (2) Weakness ICD Codes: R53.1 - Weakness SNOMED: 07771917 (3) UTI (urinary tract infection) ICD Codes: N39.0 - Urinary tract infection, site not specified SNOMED: 88673527 Qualifiers: Qualified Codes: N39.0 - Urinary tract infection, site not specified (4) Adult failure to thrive ICD Codes: R62.7 - Adult failure to thrive SNOMED: 008693104 Assessment/Plan: Problems: (1) Failure to thrive (2) Weakness (3) UTI (urinary tract infection) (4) Adult failure to thrive Diagnostic Impression Encephalopathy, acute likely 2/2 to sepsis and uti likely underlying dementia failure to thrive cont atb monitor mental status consider namenda once more alert pt ot internet marketing specialist Manuelito Abdul MD Aug 25, 2020 18:57
--- NOTE | 2020-08-25 19:14 | NUR ---
NURSE HAND-OFF: Important Events on Shift:[Refused PO meds, started IVF, blood pressure management] Patient Status: [stable] Diet: [reg] Pending Orders: [] Pending Results/Labs:[] Pending MD notification:[] Latest Vital Signs: Temperature 97.7 , Pulse 115 , B/P 146 /80 , Respiratory Rate 18 , O2 SAT 96 , Room Air, O2 Flow Rate . Vital Sign Comment: [] Latest Quiroz Fall Score: 50 Fall Risk: High Risk Safety Measures: Call light Within Reach, Bed Alarm Zone 2, Side Rails Side Rails x2, Bed position Low and Locked. Fall Precautions: Yellow Socks Door Sign Patient Fall Education Report given to [Carmen THOMAS].
--- NOTE | 2020-08-25 20:00 | NUR ---
NURSE NOTES: RECEIVED PATIENT LYING IN BED, AWAKE, ALERT/ORIENTED TO PERSON/PLACE, REALITY ORIENTATION PROVIDED DURING ASSESSMENT, DENIES PAIN. NO SIGNS AND SYMPTOMS OF ACUTE CARDIO RESPIRATORY DISTRESS/SHORTNESS OF BREATH, DENIES CHEST PAIN, TRACE EDEMA NOTED, ELEVATED BILATERAL LOWER EXTREMITIES WITH PILLOWS/HEELS FLOATING, TOLERATING WELL. IV INTACT TO RIGHT FOREARM/GAUGE 29, NOTED REDNESS/SLIGHT SWELLING TO SITE, DC'D. DENIES GI DISCOMFORT, NO N/V/D, POOR PO APPETITE REPORTED, WILL ENCOURAGE PO INTAKE THROUGHOUT THE NIGHT. SIDE RAILS UP X3/BED IN LOWEST POSITION FOR SAFETY, ENCOURAGED PATIENT TO UTILIZE CALL LIGHT FOR ASSISTANCE, VERBALIZED UNDERSTANDING. CONTINUE WITH CURRENT PLAN OF CARE. NAD.
--- NOTE | 2020-08-25 20:58 | Psychiatric Progress Note ---
Psychiatry Progress Note Psychiatry Progress Note Medications Current Medications Medications (Trade) Dose Ordered Sig/Demetrice Route PRN Reason Start Time Stop Time Status Last Admin Dose Admin Acetaminophen (Tylenol) 650 mg Q6H PRN ORAL For Pain 08/24/20 13:30 09/23/20 13:29 Amlodipine Besylate (Norvasc) 5 mg Q12HR ORAL 08/25/20 21:00 09/24/20 20:59 Ceftriaxone Sodium 1 gm/ Dextrose 55 ml @ 110 mls/hr Q24H IVPB 08/25/20 09:00 09/01/20 08:59 08/25/20 09:54 Clonidine HCl (Catapres TTS-1) 1 patch QWEEK TDERMAL 08/25/20 17:00 11/23/20 16:59 08/25/20 17:22 Dextrose/ Electrolytes 1,000 ml @ 75 mls/hr [id number] IV 08/25/20 14:00 09/24/20 13:59 08/25/20 14:11 Donepezil HCl (Aricept) 10 mg DAILY ORAL 08/25/20 09:00 09/24/20 08:59 Ferrous Sulfate (Feosol) 325 mg TWICE A DAY ORAL 08/25/20 09:00 11/23/20 08:59 Gabapentin (Neurontin) 100 mg THREE TIMES A DAY ORAL 08/25/20 09:00 09/24/20 08:59 Hydralazine HCl (Apresoline) 50 mg Q6H PRN ORAL SBP >140 08/24/20 18:00 11/22/20 17:59 08/25/20 10:12 Levothyroxine Sodium (Synthroid) 50 mcg DAILY@0630 ORAL 08/25/20 06:30 09/24/20 06:29 08/25/20 05:36 Mirtazapine (Remeron) 15 mg BEDTIME ORAL 08/25/20 21:00 11/23/20 20:59 Pantoprazole (Protonix) 40 mg DAILY ORAL 08/25/20 09:00 09/24/20 08:59 Tamsulosin HCl (Flomax) 0.4 mg DAILY ORAL 08/25/20 09:00 09/24/20 08:59 Neurological/Psychiatric: Reports: anxiety, depressed Allergies: Coded Allergies: No Known Allergies (Unverified , 08/24/20) Objective Data Height (Feet): 5 Height (Inches): 0.00 Weight (Pounds): 100 General Appearance: confused Additional Comments: awake, disoriented. Mood is dysphoric. Affect is blunted. Thought process is concrete. Thought content, no suicidal or homicidal ideation. Cognition is impaired. Insight and judgment impaired. ASSESSMENT: [place] I Dementia. Depressive disorder. [place] II Deferred. [place] III Failure to thrive. [place] IV Low. [place] V 20 PLAN: 1. We will start the patient on Zyprexa 5 mg at bedtime 2. Zyprexa 5 mg every 6 hours p.r.n. 3. The patient lacks capacity to make decision. Curt Aquino MD Aug 25, 2020 20:58
--- NOTE | 2020-08-25 21:44 | Consultation ---
DATE OF CONSULTATION: 08/26/2020 The patient is an 79-year-old female with a history of dementia, hyperlipidemia, hypertension, as well as failure to thrive, depression, anxiety, who has been admitted to the hospital due to dysuria and decreased p.o. intake. The patient is confused, disoriented, unable to be engaged during evaluation. The patient has waxing and waning consciousness, poor memory, poor insight. PAST PSYCHIATRIC HISTORY: Significant for dementia, depression. PAST MEDICAL HISTORY: Significant for hyperlipidemia, dementia. ALLERGIES: No known drug allergies. SUBSTANCE ABUSE HISTORY: No known history of illicit drug use or alcohol. MENTAL STATUS EXAMINATION: The patient is awake, disoriented. Mood is dysphoric. Affect is blunted. Thought process is concrete. Thought content, no suicidal or homicidal ideation. Cognition is impaired. Insight and judgment impaired. ASSESSMENT: [place] I Dementia. Depressive disorder. [place] II Deferred. [place] III Failure to thrive. [place] IV Low. [place] V 20 PLAN: 1. We will start the patient on Zyprexa 5 mg at bedtime 2. Zyprexa 5 mg every 6 hours p.r.n. 3. The patient lacks capacity to make decision. Curt Aquino M.D. DR: AKBAR JOB#: [id number] CC:
--- NOTE | 2020-08-25 21:48 | NUR ---
RD ASSESSMENT & RECOMMENDATIONS SEE CARE ACTIVITY FOR COMPLETE ASSESSMENT DAILY ESTIMATED NEEDS: Needs based on Underweight/ 40.3kg 30-35 kcals/kg 8785-3815 total kcals 1-1.5 g protein/kg 40-60 g total protein 25-30 mL/kg 7363-9024 total fluid mLs NUTRITION DIAGNOSIS: Increased kcal/prot needs R/T underweight status as evidenced by pt @ 89% IBW w/ BMI of 17.4, low BMI per guidelines, admitted w/ FTT dx. CURRENT DIET:REGULAR PO DIET RECOMMENDATIONS: Maintain liberalized regular diet/ texture per ARMORED CABLE MACHINE OPERATOR ADDITIONAL RECOMMENDATIONS: * Calibrated bedscale wt * Ensure Enlive TID w/ meals (350kcal/20g prot each) * F/up w/ ARMORED CABLE MACHINE OPERATOR rec regarding texture * MVI x 1 * Maintain D5 w/ poor PO
[2020-08-26] VITALS (7 sets, daily range): BP systolic 111–155; BP diastolic 58–91
--- NOTE | 2020-08-26 07:15 | NUR ---
NURSE NOTES: Received report from Carmen THOMAS. Patient is awake in bed A&O x1/2. No acute distress. Patient is calm, comfortable. Eating breakfast. IVF running per order. On room air, no SOB noted. Bed in lowest position, call light in reach, bed alarm on, side rails up x3.
--- NOTE | 2020-08-26 07:27 | NUR ---
NURSE HAND-OFF: Important Events on Shift:[UNEVENTFUL NIGHT, SLEPT WELL, NAD.] Patient Status: [STABLE, AFEBRILE] Diet: [REGULAR] Pending Orders: [AM LABS] Pending Results/Labs:[] Pending MD notification:[] Latest Vital Signs: Temperature 98.0 , Pulse 98 , B/P 144 /81 , Respiratory Rate 17 , O2 SAT 97 , Room Air, O2 Flow Rate . Vital Sign Comment: [HYPERTENSIVE, ASYMPTOMATIC] Latest Quiroz Fall Score: 50 Fall Risk: High Risk Safety Measures: Call light Within Reach, Bed Alarm Zone 2, Side Rails Side Rails x2, Bed position Low and Locked. Fall Precautions: Yellow Socks Door Sign Patient Fall Education Report given to [WILBERTO,RN].
[2020-08-26 08:22] LABS: BASOPHILS % (AUTO) 1.3 % (0.0-2.0); EOSINOPHILS % (AUTO) 1.4 % (0.0-3.0); HEMATOCRIT 36.5 % (37.0-47.0); HEMOGLOBIN 12.3 G/DL (12.0-16.0); LYMPHOCYTES % (AUTO) 21.1 % (20.0-45.0); MEAN CORPUSCULAR VOLUME 93 FL (80-99); NEUTROPHILS % (AUTO) 68.2 % (45.0-75.0); PLATELET COUNT 270 K/UL (150-450); RED BLOOD COUNT 3.91 M/UL (4.20-5.40); RED CELL DISTRIBUTION WIDTH 12.2 % (11.6-14.8); WHITE BLOOD COUNT 6.9 K/UL (4.8-10.8)
[2020-08-26] MEDS: cefTRIAXone 1 GM in D5W 55 ML IVPB SCH (08:41)
[2020-08-26] MEDS: Donepezil 10mg tab ORAL SCH (08:41)
[2020-08-26] MEDS: Tamsulosin 0.4mg cap ORAL SCH (08:41)
[2020-08-26 08:58] LABS: CALCIUM 8.7 MG/DL (8.5-10.1); PHOSPHORUS 2.5 MG/DL (2.5-4.9); POTASSIUM 3.5 MMOL/L (3.5-5.1)
--- NOTE | 2020-08-26 10:56 | Surgery Progress Note ---
Surgery Progress Note Subjective Symptoms: improved, tolerating diet, passing flatus Objective Last 24 Hour Vital Signs Date Time Temp Pulse Resp B/P (MAP) Pulse Ox O2 Delivery O2 Flow Rate FiO2 08/26/20 09:49 115/63 (80) 08/26/20 09:00 89 115/63 08/26/20 09:00 Room Air 08/26/20 08:00 98.5 89 18 155/66 (95) 96 08/26/20 04:00 98.0 98 17 144/81 (102) 08/26/20 00:00 98.3 95 18 146/91 (109) 97 08/25/20 21:49 92 150/86 08/25/20 21:36 Room Air 08/25/20 20:00 98.6 94 18 149/80 (103) 96 08/25/20 18:00 146/80 (102) 08/25/20 17:22 164/96 08/25/20 16:00 97.7 115 18 164/96 (118) 96 08/25/20 12:00 98.9 110 18 165/95 (118) 95 I&O Intake and Output 08/25/20 08/26/20 19:00 07:00 Intake Total 575 ml 825 ml Balance 575 ml 825 ml Intake Oral 240 ml IV Total 335 ml 825 ml # Voids 3 2 Cardiovascular: RSR Respiratory: clear Abdomen: soft, flat, non-tender, present bowel sounds Extremities: no edema Laboratory Tests Test 08/26/20 06:20 White Blood Count 6.9 K/UL (4.8-10.8) Red Blood Count 3.91 M/UL (4.20-5.40) L Hemoglobin 12.3 G/DL (12.0-16.0) Hematocrit 36.5 % (37.0-47.0) L Mean Corpuscular Volume 93 FL (80-99) Mean Corpuscular Hemoglobin 31.3 PG (27.0-31.0) H Mean Corpuscular Hemoglobin Concent 33.5 G/DL (32.0-36.0) Red Cell Distribution Width 12.2 % (11.6-14.8) Platelet Count 270 K/UL (150-450) Mean Platelet Volume 6.5 FL (6.5-10.1) Neutrophils (%) (Auto) 68.2 % (45.0-75.0) Lymphocytes (%) (Auto) 21.1 % (20.0-45.0) Monocytes (%) (Auto) 8.0 % (1.0-10.0) Eosinophils (%) (Auto) 1.4 % (0.0-3.0) Basophils (%) (Auto) 1.3 % (0.0-2.0) Sodium Level 136 MMOL/L (136-145) Potassium Level 3.5 MMOL/L (3.5-5.1) Chloride Level 103 MMOL/L (98-107) Carbon Dioxide Level 23 MMOL/L (21-32) Anion Gap 10 mmol/L (5-15) Blood Urea Nitrogen 10 mg/dL (7-18) Creatinine 1.0 MG/DL (0.55-1.30) Estimat Glomerular Filtration Rate 53.3 mL/min (>60) Glucose Level 104 MG/DL (74-106) Calcium Level 8.7 MG/DL (8.5-10.1) Phosphorus Level 2.5 MG/DL (2.5-4.9) Magnesium Level 2.1 MG/DL (1.8-2.4) Plan Problems: (1) Failure to thrive (2) Weakness (3) UTI (urinary tract infection) (4) Adult failure to thrive Assessment & Plan: poor po intake uti on abx labs noted bmi low not eating well may really need to consider alternative nutrition cont push encourage po intake DAILY ESTIMATED NEEDS: Needs based on Underweight/ 40.3kg 30-35 kcals/kg 8181-6245 total kcals 1-1.5 g protein/kg 40-60 g total protein 25-30 mL/kg 9794-3214 total fluid mLs NUTRITION DIAGNOSIS: Increased kcal/prot needs R/T underweight status as evidenced by pt @ 89% IBW w/ BMI of 17.4, low BMI per guidelines, admitted w/ FTT dx. CURRENT DIET:REGULAR PO DIET RECOMMENDATIONS: Maintain liberalized regular diet/ texture per [facility] ADDITIONAL RECOMMENDATIONS: * Calibrated bedscale wt * Ensure Enlive TID w/ meals (350kcal/20g prot each) * F/up w/ [facility] rec regarding texture * MVI x 1 * Maintain D5 w/ poor PO Geronimo Ybarra Aug 26, 2020 10:56
--- NOTE | 2020-08-26 12:53 | Pulmonology Progress Note ---
Subjective ROS Limited/Unobtainable: Yes HEENT: Repors: no symptoms Respiratory: Reports: no symptoms Cardiovascular: Reports: no symptoms Allergies: Coded Allergies: No Known Allergies (Unverified , 08/24/20) Objective Last 24 Hour Vital Signs Date Time Temp Pulse Resp B/P (MAP) Pulse Ox O2 Delivery O2 Flow Rate FiO2 08/26/20 12:00 98.6 90 18 116/65 (82) 96 08/26/20 09:49 115/63 (80) 08/26/20 09:00 89 115/63 08/26/20 09:00 Room Air 08/26/20 08:00 98.5 89 18 155/66 (95) 96 08/26/20 04:00 98.0 98 17 144/81 (102) 08/26/20 00:00 98.3 95 18 146/91 (109) 97 08/25/20 21:49 92 150/86 08/25/20 21:36 Room Air 08/25/20 20:00 98.6 94 18 149/80 (103) 96 08/25/20 18:00 146/80 (102) 08/25/20 17:22 164/96 08/25/20 16:00 97.7 115 18 164/96 (118) 96 Intake and Output 08/25/20 08/26/20 19:00 07:00 Intake Total 575 ml 825 ml Balance 575 ml 825 ml Intake Oral 240 ml IV Total 335 ml 825 ml # Voids 3 2 General Appearance: no acute distress Respiratory: chest wall non-tender, lungs clear Cardiovascular: normal rate, regular rhythm Microbiology Date/Time Source Procedure Growth Status 08/24/20 09:00 Nasopharynx SARS-CoV-2 RdRp Gene Assay - Final Complete Laboratory Tests 08/26/20 06:20: White Blood Count 6.9, Red Blood Count 3.91L, Hemoglobin 12.3, Hematocrit 36.5L, Mean Corpuscular Volume 93, Mean Corpuscular Hemoglobin 31.3H, Mean Corpuscular Hemoglobin Concent 33.5, Red Cell Distribution Width 12.2, Platelet Count 270, Mean Platelet Volume 6.5, Neutrophils (%) (Auto) 68.2, Lymphocytes (%) (Auto) 21.1, Monocytes (%) (Auto) 8.0, Eosinophils (%) (Auto) 1.4, Basophils (%) (Auto) 1.3, Sodium Level 136, Potassium Level 3.5, Chloride Level 103, Carbon Dioxide Level 23, Anion Gap 10, Blood Urea Nitrogen 10, Creatinine 1.0, Estimat Glomerular Filtration Rate 53.3, Glucose Level 104, Calcium Level 8.7, Phosphor us Level 2.5, Magnesium Level 2.1 Current Medications Medications (Trade) Dose Ordered Sig/Demetrice Route PRN Reason Start Time Stop Time Status Last Admin Dose Admin Acetaminophen (Tylenol) 650 mg Q6H PRN ORAL For Pain 08/24/20 13:30 09/23/20 13:29 Amlodipine Besylate (Norvasc) 5 mg Q12HR ORAL 08/25/20 21:00 09/24/20 20:59 08/25/20 21:49 Ceftriaxone Sodium 1 gm/ Dextrose 55 ml @ 110 mls/hr Q24H IVPB 08/25/20 09:00 09/01/20 08:59 08/26/20 08:41 Clonidine HCl (Catapres TTS-1) 1 patch QWEEK TDERMAL 08/25/20 17:00 11/23/20 16:59 08/25/20 17:22 Dextrose/ Electrolytes 1,000 ml @ 75 mls/hr [id number] IV 08/25/20 14:00 09/24/20 13:59 08/26/20 06:11 Donepezil HCl (Aricept) 10 mg DAILY ORAL 08/25/20 09:00 09/24/20 08:59 08/26/20 08:41 Ferrous Sulfate (Feosol) 325 mg TWICE A DAY ORAL 08/25/20 09:00 11/23/20 08:59 08/26/20 08:41 Gabapentin (Neurontin) 100 mg THREE TIMES A DAY ORAL 08/25/20 09:00 09/24/20 08:59 08/26/20 12:19 Hydralazine HCl (Apresoline) 50 mg Q6H PRN ORAL SBP >140 08/24/20 18:00 11/22/20 17:59 08/25/20 10:12 Levothyroxine Sodium (Synthroid) 50 mcg DAILY@0630 ORAL 08/25/20 06:30 09/24/20 06:29 08/26/20 06:56 Mirtazapine (Remeron) 15 mg BEDTIME ORAL 08/26/20 21:00 11/24/20 20:59 Multivitamins (Multivitamins) 1 tab DAILY ORAL 08/27/20 09:00 09/26/20 08:59 Olanzapine (ZyPREXA) 5 mg Q6H PRN ORAL agitation 08/25/20 21:00 10/09/20 20:59 Pantoprazole (Protonix) 40 mg DAILY ORAL 08/25/20 09:00 09/24/20 08:59 08/26/20 08:41 Tamsulosin HCl (Flomax) 0.4 mg DAILY ORAL 08/25/20 09:00 09/24/20 08:59 08/26/20 08:41 Assessment/Plan Assessment/Plan 1. Failure to thrive. 2. UTI c/s pending DISCUSSION: Continue current medications and care. On ABT for UTI Defer to PCP poor oral intake, NA 136 Improved We will follow carefully as diagnostic tech. At this time, respiratory status is stable. Above plan of care was discussed with supervising physician Elda Lee NP Aug 26, 2020 12:53
--- NOTE | 2020-08-26 15:45 | Internal Med Progress Note ---
Subjective Physician Name Roz Mancilla Attending Physician Roz Mancilla M.D. Current Medications Medications (Trade) Dose Ordered Sig/Demetrice Route PRN Reason Start Time Stop Time Status Last Admin Dose Admin Acetaminophen (Tylenol) 650 mg Q6H PRN ORAL For Pain 08/24/20 13:30 09/23/20 13:29 Amlodipine Besylate (Norvasc) 5 mg Q12HR ORAL 08/25/20 21:00 09/24/20 20:59 08/25/20 21:49 Ceftriaxone Sodium 1 gm/ Dextrose 55 ml @ 110 mls/hr Q24H IVPB 08/25/20 09:00 09/01/20 08:59 08/26/20 08:41 Clonidine HCl (Catapres TTS-1) 1 patch QWEEK TDERMAL 08/25/20 17:00 11/23/20 16:59 08/25/20 17:22 Dextrose/ Electrolytes 1,000 ml @ 75 mls/hr [id number] IV 08/25/20 14:00 09/24/20 13:59 08/26/20 06:11 Donepezil HCl (Aricept) 10 mg DAILY ORAL 08/25/20 09:00 09/24/20 08:59 08/26/20 08:41 Ferrous Sulfate (Feosol) 325 mg TWICE A DAY ORAL 08/25/20 09:00 11/23/20 08:59 08/26/20 08:41 Gabapentin (Neurontin) 100 mg THREE TIMES A DAY ORAL 08/25/20 09:00 09/24/20 08:59 08/26/20 12:19 Hydralazine HCl (Apresoline) 50 mg Q6H PRN ORAL SBP >140 08/24/20 18:00 11/22/20 17:59 08/25/20 10:12 Levothyroxine Sodium (Synthroid) 50 mcg DAILY@0630 ORAL 08/25/20 06:30 09/24/20 06:29 08/26/20 06:56 Mirtazapine (Remeron) 15 mg BEDTIME ORAL 08/26/20 21:00 11/24/20 20:59 Multivitamins (Multivitamins) 1 tab DAILY ORAL 08/27/20 09:00 09/26/20 08:59 Olanzapine (ZyPREXA) 5 mg Q6H PRN ORAL agitation 08/25/20 21:00 10/09/20 20:59 Pantoprazole (Protonix) 40 mg DAILY ORAL 08/25/20 09:00 09/24/20 08:59 08/26/20 08:41 Tamsulosin HCl (Flomax) 0.4 mg DAILY ORAL 08/25/20 09:00 09/24/20 08:59 08/26/20 08:41 Allergies: Coded Allergies: No Known Allergies (Unverified , 08/24/20) Subjective more alert now taking medications eating more no nausea tolerating abx evaluated by psych Objective Last Vital Signs Date Time Temp Pulse Resp B/P (MAP) Pulse Ox O2 Delivery O2 Flow Rate FiO2 08/26/20 12:00 98.6 90 18 116/65 (82) 96 08/26/20 09:00 Room Air Laboratory Tests Test 08/26/20 06:20 White Blood Count 6.9 K/UL (4.8-10.8) Red Blood Count 3.91 M/UL (4.20-5.40) L Hemoglobin 12.3 G/DL (12.0-16.0) Hematocrit 36.5 % (37.0-47.0) L Mean Corpuscular Volume 93 FL (80-99) Mean Corpuscular Hemoglobin 31.3 PG (27.0-31.0) H Mean Corpuscular Hemoglobin Concent 33.5 G/DL (32.0-36.0) Red Cell Distribution Width 12.2 % (11.6-14.8) Platelet Count 270 K/UL (150-450) Mean Platelet Volume 6.5 FL (6.5-10.1) Neutrophils (%) (Auto) 68.2 % (45.0-75.0) Lymphocytes (%) (Auto) 21.1 % (20.0-45.0) Monocytes (%) (Auto) 8.0 % (1.0-10.0) Eosinophils (%) (Auto) 1.4 % (0.0-3.0) Basophils (%) (Auto) 1.3 % (0.0-2.0) Sodium Level 136 MMOL/L (136-145) Potassium Level 3.5 MMOL/L (3.5-5.1) Chloride Level 103 MMOL/L (98-107) Carbon Dioxide Level 23 MMOL/L (21-32) Anion Gap 10 mmol/L (5-15) Blood Urea Nitrogen 10 mg/dL (7-18) Creatinine 1.0 MG/DL (0.55-1.30) Estimat Glomerular Filtration Rate 53.3 mL/min (>60) Glucose Level 104 MG/DL (74-106) Calcium Level 8.7 MG/DL (8.5-10.1) Phosphorus Level 2.5 MG/DL (2.5-4.9) Magnesium Level 2.1 MG/DL (1.8-2.4) Microbiology Date/Time Source Procedure Growth Status 08/24/20 09:00 Nasopharynx SARS-CoV-2 RdRp Gene Assay - Final Complete 08/24/20 08:13 Urine,Clean Catch Urine Culture - Final Escherichia Coli Complete Intake and Output 08/25/20 08/26/20 18:59 06:59 Intake Total 575 ml 825 ml Balance 575 ml 825 ml Intake Oral 240 ml IV Total 335 ml 825 ml # Voids 3 2 Objective General appearance: alert, cooperative, no distress, appears stated age Head: Normocephalic, without obvious abnormality, atraumatic Eyes: conjunctivae/corneas clear. PERRL, EOM's intact. Fundi benign Throat: Lips, mucosa, and tongue normal. Teeth and gums normal Neck: supple, symmetrical, trachea midline, no adenopathy, thyroid: not enlarged, symmetric, no tenderness/mass/nodules, no carotid bruit and no JVD Lungs: clear to auscultation bilaterally Heart: regular rate and rhythm, S1, S2 normal, no murmur, click, rub or gallop Abdomen: soft, non-tender. Bowel sounds normal. No masses, no organomegaly Extremities: extremities normal, atraumatic, no cyanosis or edema Pulses: 2+ and symmetric Skin: Skin color, texture, turgor normal. No rashes or lesions Neurologic: Grossly normal Assessment/Plan Assessment/Plan #UTI #Hyponatremia #Dehydration #failure to thirve #inability to care for self #hypothyroidism #urinary retention - ceftriaxone 1g daily - levothyroxine - flomax - add amlodipine 5mg BID - hydralazine prn for BP control - PT eval - snf eval - monitor Roz Newell M.D. Aug 26, 2020 15:45
--- NOTE | 2020-08-26 15:54 | NUR ---
NURSE NOTES: Patient discharged by private vehicle accompanied by Mom. In stable condition, wound care demonstrated by patient, patient verbalized understanding. Discharge packet completed and signed by patient, patient belongings signed by patient. Medications sent to pharmacy of patient preference by Doctor Yates. Addendum: 08/26/20 at 1600 by Shelley Horton RN Wrong Patient
--- NOTE | 2020-08-26 17:48 | Neurology Progress Note ---
Interim History Interim History ROS Limited/Unobtainable: No Interim History eating more, seen by psych for managing agitation Objective Physical Exam Last Vital Signs Date Time Temp Pulse Resp B/P (MAP) Pulse Ox O2 Delivery O2 Flow Rate FiO2 08/26/20 16:00 97.9 81 18 116/58 (77) 96 08/26/20 09:00 Room Air Laboratory Tests Test 08/26/20 06:20 White Blood Count 6.9 K/UL (4.8-10.8) Red Blood Count 3.91 M/UL (4.20-5.40) L Hemoglobin 12.3 G/DL (12.0-16.0) Hematocrit 36.5 % (37.0-47.0) L Mean Corpuscular Volume 93 FL (80-99) Mean Corpuscular Hemoglobin 31.3 PG (27.0-31.0) H Mean Corpuscular Hemoglobin Concent 33.5 G/DL (32.0-36.0) Red Cell Distribution Width 12.2 % (11.6-14.8) Platelet Count 270 K/UL (150-450) Mean Platelet Volume 6.5 FL (6.5-10.1) Neutrophils (%) (Auto) 68.2 % (45.0-75.0) Lymphocytes (%) (Auto) 21.1 % (20.0-45.0) Monocytes (%) (Auto) 8.0 % (1.0-10.0) Eosinophils (%) (Auto) 1.4 % (0.0-3.0) Basophils (%) (Auto) 1.3 % (0.0-2.0) Sodium Level 136 MMOL/L (136-145) Potassium Level 3.5 MMOL/L (3.5-5.1) Chloride Level 103 MMOL/L (98-107) Carbon Dioxide Level 23 MMOL/L (21-32) Anion Gap 10 mmol/L (5-15) Blood Urea Nitrogen 10 mg/dL (7-18) Creatinine 1.0 MG/DL (0.55-1.30) Estimat Glomerular Filtration Rate 53.3 mL/min (>60) Glucose Level 104 MG/DL (74-106) Calcium Level 8.7 MG/DL (8.5-10.1) Phosphorus Level 2.5 MG/DL (2.5-4.9) Magnesium Level 2.1 MG/DL (1.8-2.4) Head: normocophalic Neck: no rigidity EENT: benign Neurologic Exam Objective Wakes up tracks with eyes but confused NC AT moves all 4 to stimuli no distress skin dry Impression/Recommendations Problems: (1) Failure to thrive (2) Weakness (3) UTI (urinary tract infection) (4) Adult failure to thrive Diagnostic Impression Encephalopathy, acute likely 2/2 to sepsis and uti likely underlying dementia failure to thrive cont atb monitor mental status consider namenda once more alert psych managing agitation pt ot floral associate Manuelito Abdul MD Aug 26, 2020 17:48
--- NOTE | 2020-08-26 19:15 | NUR ---
NURSE HAND-OFF: Important Events on Shift:[A&O x4, tolerated food well] Patient Status: [stable] Diet: [reg] Pending Orders: [] Pending Results/Labs:[] Pending MD notification:[] Latest Vital Signs: Temperature 97.9 , Pulse 81 , B/P 116 /58 , Respiratory Rate 18 , O2 SAT 96 , Room Air, O2 Flow Rate . Vital Sign Comment: [] Latest Quiroz Fall Score: 50 Fall Risk: High Risk Safety Measures: Call light Within Reach, Bed Alarm Zone 2, Side Rails Side Rails x3, Bed position Low and Locked. Fall Precautions: Yellow Socks Door Sign Patient Fall Education Report given to [Carmen THOMAS].
--- NOTE | 2020-08-26 19:56 | NUR ---
NURSE NOTES: RECEIVED PATIENT LYING IN BED,AWAKE,ALERT/ORIENTED TO PERSON, PLACE, DENIES PAIN, NO SIGNS AND SYMPTOMS OF ACUTE CARDIO RESPIRATORY DISTRESS/SHORTNESS OF BREATH, NO PERIPHERAL EDEMA NOTED. IV INTACT TO RIGHT FOREARM/GAUGE 22, NO SIGNS OF INFILTRATION, TOLERATING IV FLUIDS. NO REPORT OF GI DISCOMFORT, NO N/V/D. SIDE RAILS UP X3/BED IN LOWEST POSITION FOR SAFETY, FREQUENT ROUNDING FOR SAFETY/NEEDS. CONTINUE WITH CURRENT PLAN OF CARE. NAD.
[2020-08-27] VITALS: BP 110/64
[2020-08-27 04:00] VITALS: BP 107/58
[2020-08-27 06:47] LABS: BASOPHILS % (AUTO) 2.5 % (0.0-2.0); EOSINOPHILS % (AUTO) 7.1 % (0.0-3.0); HEMATOCRIT 33.8 % (37.0-47.0); HEMOGLOBIN 10.9 G/DL (12.0-16.0); LYMPHOCYTES % (AUTO) 46.4 % (20.0-45.0); MEAN CORPUSCULAR VOLUME 96 FL (80-99); MONOCYTES % (AUTO) 8.4 % (1.0-10.0); NEUTROPHILS % (AUTO) 35.7 % (45.0-75.0); PLATELET COUNT 236 K/UL (150-450); RED BLOOD COUNT 3.53 M/UL (4.20-5.40); RED CELL DISTRIBUTION WIDTH 12.5 % (11.6-14.8); WHITE BLOOD COUNT 5.3 K/UL (4.8-10.8)
--- NOTE | 2020-08-27 07:34 | NUR ---
NURSE HAND-OFF: Important Events on Shift:[UNEVENTFUL NIGHT, RESTED WELL, NAD.] Patient Status: [STABLE] Diet: [REGULAR] Pending Orders: [AM LABS] Pending Results/Labs:[] Pending MD notification:[] Latest Vital Signs: Temperature 97.7 , Pulse 68 , B/P 107 /58 , Respiratory Rate 16 , O2 SAT 96 , Room Air, O2 Flow Rate . Vital Sign Comment: [STABLE, AFEBRILE] Latest Quiroz Fall Score: 50 Fall Risk: High Risk Safety Measures: Call light Within Reach, Bed Alarm Zone 2, Side Rails Side Rails x2, Bed position Low and Locked. Fall Precautions: Yellow Socks Door Sign Patient Fall Education Report given to [[place],RN].
[2020-08-27 07:53] LABS: ALBUMIN 2.5 G/DL (3.4-5.0); ALBUMIN/GLOBULIN RATIO 0.6 (1.0-2.7); BILIRUBIN,TOTAL 0.2 MG/DL (0.2-1.0); CREATININE 1.1 MG/DL (0.55-1.30); POTASSIUM 4.5 MMOL/L (3.5-5.1)
[2020-08-27 08:00] VITALS: BP 135/68
[2020-08-27 08:00] LABS: CALCIUM 8.2 MG/DL (8.5-10.1)
--- NOTE | 2020-08-27 08:08 | NUR ---
NURSE NOTES: Received report from Carmen THOMAS. Patient is asleep, no sign of distress. RFA G22 PIV access, patent and asymptomatic. On room air, no SOB, not in acute distress. Bed in lowest position, call light in reach, side rails up x3, bed alarm on. Will continue to monitor pt and follow up with the plan of care.
[2020-08-27] MEDS: Tamsulosin 0.4mg cap ORAL SCH (08:44)
[2020-08-27] MEDS: cefTRIAXone 1 GM in D5W 55 ML IVPB SCH (08:44)
[2020-08-27] MEDS: Donepezil 10mg tab ORAL SCH (08:44)
--- NOTE | 2020-08-27 10:04 | CDS Physician Query ---
Clarification is required for compliance, coding accuracy, and to reflect severity of illness for this patient Dear Dr. Roz Mancilla Date: 08/27/2019 Cooling System Operator/CDS Name: Arin Zee Clinical Documentation states: HNP - 79 year ofd female with history of dementia and HDL presents with failure to thrive and dysuria...#UTI #Dehydration #failure to thirve RD note: NUTRITION DIAGNOSIS: Increased kcal/prot needs R/T underweight status as evidenced by pt @ 89% IBW w/ BMI of 17.4, low BMI per guidelines, admitted w/ FTT dx. Please select the most appropriate option: [] Protein/Calorie Malnutrition [] Mild [] Moderate [] Severe [] Hypoalbuminemia [] Cachexia [] Underweight [] Intestinal malabsorption [] Other [] Unable to determine [] Not Applicable Present on Admission: [] Yes [] No [] Clinically Undetermined Physician signature Date Please also document in your Progress Notes and/or Discharge Summary and indicate if the condition was present on admission. MTDD
--- NOTE | 2020-08-27 11:29 | NUR ---
CASE MANAGEMENT:REVIEW 08/27/20 SI: UTI. DEHYDRATION. FTT 98.2 74 18 135/68 95% ON RA H/H-10.9/33.8 IS: IV ROCEPHIN Q24 IVF@75/HR REMERON PO QHS NORVASC PO Q12 PROTONIX PO QD FLOMAX PO QD NEURONTIN PO TID : MED/SURG STATUS 4 EAST PLAN: UNSTEADY GAIT...ONLY AMBULATING 50FT...REFER TO SNF
[2020-08-27 12:00] VITALS: BP 120/60
--- NOTE | 2020-08-27 12:36 | Pulmonology Progress Note ---
Subjective ROS Limited/Unobtainable: No HEENT: Repors: no symptoms Respiratory: Reports: no symptoms Cardiovascular: Reports: no symptoms Allergies: Coded Allergies: No Known Allergies (Unverified , 08/24/20) Objective Last 24 Hour Vital Signs Date Time Temp Pulse Resp B/P (MAP) Pulse Ox O2 Delivery O2 Flow Rate FiO2 08/27/20 12:00 97.7 66 18 120/60 (80) 96 08/27/20 09:00 Room Air 08/27/20 08:44 74 135/68 08/27/20 08:00 98.2 74 18 135/68 (90) 95 08/27/20 04:00 97.7 68 16 107/58 (74) 96 08/27/20 00:00 97.9 77 16 110/64 (79) 97 08/26/20 21:00 Room Air 08/26/20 20:06 72 101/56 08/26/20 20:00 97.4 81 16 111/60 (77) 93 08/26/20 16:00 97.9 81 18 116/58 (77) 96 Intake and Output 08/26/20 08/27/20 19:00 07:00 Intake Total 1405 ml 1140 ml Balance 1405 ml 1140 ml Intake Oral 600 ml 240 ml IV Total 805 ml 900 ml # Voids 2 2 # Bowel Movements 1 General Appearance: no acute distress Respiratory: chest wall non-tender, lungs clear Cardiovascular: normal rate, regular rhythm Laboratory Tests 08/27/20 05:35: White Blood Count 5.3, Red Blood Count 3.53L, Hemoglobin 10.9L, Hematocrit 33.8L , Mean Corpuscular Volume 96, Mean Corpuscular Hemoglobin 30.8, Mean Corpuscular Hemoglobin Concent 32.1, Red Cell Distribution Width 12.5, Platelet Count 236, Mean Platelet Volume 7.2, Neutrophils (%) (Auto) 35.7L, Lymphocytes (%) (Auto) 46.4H, Monocytes (%) (Auto) 8.4, Eosinophils (%) (Auto) 7.1H, Basophils (%) (Au to) 2.5H, Sodium Level 140, Potassium Level 4.5, Chloride Level 110H, Carbon Dioxide Level 19L, Anion Gap 11, Blood Urea Nitrogen 11, Creatinine 1.1, Estimat Glomerular Filtration Rate 47.8, Glucose Level 84, Calcium Level 8.2L, Total Bilirubin 0.2, Aspartate Amino Transf (AST/SGOT) 35, Alanine Aminotransferase (ALT/SGPT) 12, Alkaline Phosphatase 103, Total Protein 6.7, Albumin 2.5L, Globulin 4.2, Albumin/Globulin Ratio 0.6L, Prealbumin [Pending] Current Medications Medications (Trade) Dose Ordered Sig/Demetrice Route PRN Reason Start Time Stop Time Status Last Admin Dose Admin Acetaminophen (Tylenol) 650 mg Q6H PRN ORAL For Pain 08/24/20 13:30 09/23/20 13:29 Amlodipine Besylate (Norvasc) 5 mg Q12HR ORAL 08/25/20 21:00 09/24/20 20:59 08/27/20 08:44 Ceftriaxone Sodium 1 gm/ Dextrose 55 ml @ 110 mls/hr Q24H IVPB 08/25/20 09:00 09/01/20 08:59 08/27/20 08:44 Dextrose/ Electrolytes 1,000 ml @ 75 mls/hr [id number] IV 08/25/20 14:00 09/24/20 13:59 08/27/20 05:55 Donepezil HCl (Aricept) 10 mg DAILY ORAL 08/25/20 09:00 09/24/20 08:59 08/27/20 08:44 Ferrous Sulfate (Feosol) 325 mg TWICE A DAY ORAL 08/25/20 09:00 11/23/20 08:59 08/27/20 08:44 Gabapentin (Neurontin) 100 mg THREE TIMES A DAY ORAL 08/25/20 09:00 09/24/20 08:59 08/27/20 08:44 Hydralazine HCl (Apresoline) 50 mg Q6H PRN ORAL SBP >140 08/24/20 18:00 11/22/20 17:59 08/25/20 10:12 Levothyroxine Sodium (Synthroid) 50 mcg DAILY@0630 ORAL 08/25/20 06:30 09/24/20 06:29 08/27/20 05:55 Mirtazapine (Remeron) 15 mg BEDTIME ORAL 08/26/20 21:00 11/24/20 20:59 08/26/20 20:07 Multivitamins (Multivitamins) 1 tab DAILY ORAL 08/27/20 09:00 09/26/20 08:59 08/27/20 08:44 Olanzapine (ZyPREXA) 5 mg Q6H PRN ORAL agitation 08/25/20 21:00 10/09/20 20:59 Pantoprazole (Protonix) 40 mg DAILY ORAL 08/25/20 09:00 09/24/20 08:59 08/27/20 08:44 Tamsulosin HCl (Flomax) 0.4 mg DAILY ORAL 08/25/20 09:00 09/24/20 08:59 08/27/20 08:44 Assessment/Plan Assessment/Plan 1. Failure to thrive. 2. E Coli UTI DISCUSSION: Continue current medications and care. On Abx for UTI Defer to PCP poor oral intake, NA 136 Improved We will follow carefully as skiver counter. At this time, respiratory status is stable. Above plan of care was discussed with supervising physician The care for this patient was discussed with my supervising physician Time spent for this case was approximately 31 minutes Duarte Carrasquillo Aug 27, 2020 12:36
--- NOTE | 2020-08-27 15:30 | NUR ---
NURSE NOTES: Received call from Rose. She stated that patient's hospitalist is Dr. Fernandes not Dr. Mancilla,she asked RN to call both doctors. RN spoke to Dr. Mancilla who agreed with change of attending and RN also spoke to Duarte Fernandes's PA. Faxed the order to admitting.
--- NOTE | 2020-08-27 15:58 | NUR ---
INSURANCE CLINICALS/REVIEW FAXED TO [facility] [phone]
[2020-08-27 16:00] VITALS: BP 114/62
--- NOTE | 2020-08-27 16:52 | NUR ---
*-*INSURANCE*-* CLINICALS FAXED TO [facility] P: [phone] FAX: [phone] CASE DOROTEO ABREU.
--- NOTE | 2020-08-27 19:20 | NUR ---
NURSE HAND-OFF: Important Events on Shift:[] Patient Status: [stable] Diet: [reg] Pending Orders: [] Pending Results/Labs:[] Pending MD notification:[] Latest Vital Signs: Temperature 98.1 , Pulse 69 , B/P 114 /62 , Respiratory Rate 18 , O2 SAT 96 , Room Air, O2 Flow Rate . Vital Sign Comment: [] Latest Quiroz Fall Score: 50 Fall Risk: High Risk Safety Measures: Call light Within Reach, Bed Alarm Zone 2, Side Rails Side Rails x2, Bed position Low and Locked. Fall Precautions: Yellow Socks Door Sign Patient Fall Education Report given to [FILIPPO Mcintosh].
--- NOTE | 2020-08-27 19:41 | NUR ---
NURSE NOTES: Patient asleep in bed, on room air, no SOB noted. IV on left forearm g.22 with running IV as ordered. Call light in reach. Bed in lowest, lock engaged and alarm on. Will continue to monitor.
[2020-08-27 20:00] VITALS: BP 118/60
[2020-08-28] VITALS (7 sets, daily range): BP systolic 121–129; BP diastolic 57–76
--- NOTE | 2020-08-28 06:52 | NUR ---
NURSE HAND-OFF: Important Events on Shift: 1 BM, hygiene, feeding, turning positions Patient Status: Diet: Jevity 1.2 Pending Orders: Pending Results/Labs: Pending MD notification: Latest Vital Signs: Temperature 97.8 , Pulse 73 , B/P 128 /71 , Respiratory Rate 20 , O2 SAT 96 , Room Air, O2 Flow Rate . Vital Sign Comment: Latest Quiroz Fall Score: 50 Fall Risk: High Risk Safety Measures: Call light Within Reach, Bed Alarm Zone 2, Side Rails Side Rails x2, Bed position Low and Locked. Fall Precautions: Yellow Socks Door Sign Patient Fall Education Report given to FILIPPO Schmidt. Addendum: 08/28/20 at 0654 by DANN MCCRAY RN wrong patient
--- NOTE | 2020-08-28 06:57 | NUR ---
NURSE HAND-OFF: Important Events on Shift: Patient Status: Diet: regular Pending Orders: Pending Results/Labs: Pending MD notification: Latest Vital Signs: Temperature 97.8 , Pulse 73 , B/P 128 /71 , Respiratory Rate 20 , O2 SAT 96 , Room Air, O2 Flow Rate . Vital Sign Comment: Latest Quiroz Fall Score: 50 Fall Risk: High Risk Safety Measures: Call light Within Reach, Bed Alarm Zone 2, Side Rails Side Rails x2, Bed position Low and Locked. Fall Precautions: Yellow Socks Door Sign Patient Fall Education Report given to Ms. Lonny RN.
--- NOTE | 2020-08-28 07:30 | NUR ---
NURSE NOTES: RN received the patient in bed AAOX3. Patient shows no s/s of respiratory distress on RA, does not c/o pain. IV running with NS with KcL at 75ml/hr, asymptomatic. Plan of care communicated. Bed in lowest position and locked, bed alarm. Call light within reach. Patient's room close to the nursing station. Will continue to monitor.
--- NOTE | 2020-08-28 07:59 | NUR ---
Speech Pathology Note (Bedside Dysphagia Evaluation) Brief Note: Ms. Wong is an 79 year old female admitted [facility] on 08/24/2020 for failure to thrive c.w dysuria. She is here for SNF placement and medical treatment for UTI. Pt reportedly have started eating more. I am here to check her diet texture for discharge planning. I reviewed labs, medication vital signs. No radiographic images were available at this time. Findings: Ms. Wong is alert. She is oriented to self. She was able to state her name. She knows her age and birthday. She stated " I will be 80." she follows commands. She is a bilingual in Nepalese and Uzbek. She thought the president of [place] was Trhermin[place]. She could not recall the current president but she was able to state " Skinny emely." Her speech is clear and voice is intact. Oropharyngeal inspection revealed absence of teeth in upper, missing most of her teeth in lower. The mucosa of visible oropharynx is clear and moist. She received her breakfast consisted with bread, scrambled egg, oat meal, and drinks. She was capable to self feed and drink. She asked me if I can feed her. I fed her oat meal and encouraged to eat as much. She consumed all served oat meal and tolerated well. She self drunk coffee without any s.s of aspiration. She stated her appetite has been improving. Interpretation: 1. Functional swallow 2. Poor PO intake possibly due to UTI, and depression Plan: 1. Mechanical soft diet and thin liquid 2. Supportive environment, encouragement for PO intake I will sign off from service at this time. Ron Sales
[2020-08-28] MEDS: Donepezil 10mg tab ORAL SCH (08:36)
[2020-08-28] MEDS: Tamsulosin 0.4mg cap ORAL SCH (08:36)
[2020-08-28] MEDS: cefTRIAXone 1 GM in D5W 55 ML IVPB SCH (08:37)
--- NOTE | 2020-08-28 09:05 | Pulmonology Progress Note ---
Subjective ROS Limited/Unobtainable: No HEENT: Repors: no symptoms Respiratory: Reports: no symptoms Cardiovascular: Reports: no symptoms Allergies: Coded Allergies: No Known Allergies (Unverified , 08/24/20) Objective Last 24 Hour Vital Signs Date Time Temp Pulse Resp B/P (MAP) Pulse Ox O2 Delivery O2 Flow Rate FiO2 08/28/20 08:36 77 128/76 08/28/20 08:00 98.8 77 19 128/76 (93) 97 08/28/20 04:00 97.8 73 20 128/71 (90) 96 08/28/20 00:00 98.5 70 18 124/57 (79) 96 08/27/20 21:00 Room Air 08/27/20 20:07 72 118/60 08/27/20 20:00 98.0 72 20 118/60 (79) 96 08/27/20 16:00 98.1 69 18 114/62 (79) 96 08/27/20 12:00 97.7 66 18 120/60 (80) 96 Intake and Output 08/27/20 08/28/20 19:00 07:00 Intake Total 1180 ml 825 ml Balance 1180 ml 825 ml Intake Oral 600 ml IV Total 580 ml 825 ml # Voids 3 2 General Appearance: no acute distress Respiratory: chest wall non-tender, lungs clear Cardiovascular: normal rate, regular rhythm Current Medications Medications (Trade) Dose Ordered Sig/Demetrice Route PRN Reason Start Time Stop Time Status Last Admin Dose Admin Acetaminophen (Tylenol) 650 mg Q6H PRN ORAL For Pain 08/24/20 13:30 09/23/20 13:29 Amlodipine Besylate (Norvasc) 5 mg Q12HR ORAL 08/25/20 21:00 09/24/20 20:59 08/28/20 08:36 Ceftriaxone Sodium 1 gm/ Dextrose 55 ml @ 110 mls/hr Q24H IVPB 08/25/20 09:00 09/01/20 08:59 08/28/20 08:37 Dextrose/ Electrolytes 1,000 ml @ 75 mls/hr [id number] IV 08/25/20 14:00 09/24/20 13:59 08/28/20 08:37 Donepezil HCl (Aricept) 10 mg DAILY ORAL 08/25/20 09:00 09/24/20 08:59 08/28/20 08:36 Ferrous Sulfate (Feosol) 325 mg TWICE A DAY ORAL 08/25/20 09:00 11/23/20 08:59 08/28/20 08:36 Gabapentin (Neurontin) 100 mg THREE TIMES A DAY ORAL 08/25/20 09:00 09/24/20 08:59 08/28/20 08:36 Hydralazine HCl (Apresoline) 50 mg Q6H PRN ORAL SBP >140 08/24/20 18:00 11/22/20 17:59 08/25/20 10:12 Levothyroxine Sodium (Synthroid) 50 mcg DAILY@0630 ORAL 08/25/20 06:30 09/24/20 06:29 08/28/20 05:51 Mirtazapine (Remeron) 15 mg BEDTIME ORAL 08/26/20 21:00 11/24/20 20:59 08/27/20 20:22 Multivitamins (Multivitamins) 1 tab DAILY ORAL 08/27/20 09:00 09/26/20 08:59 08/28/20 08:36 Olanzapine (ZyPREXA) 5 mg Q6H PRN ORAL agitation 08/25/20 21:00 10/09/20 20:59 Pantoprazole (Protonix) 40 mg DAILY ORAL 08/25/20 09:00 09/24/20 08:59 08/28/20 08:36 Tamsulosin HCl (Flomax) 0.4 mg DAILY ORAL 08/25/20 09:00 09/24/20 08:59 08/28/20 08:36 Assessment/Plan Assessment/Plan 1. Failure to thrive. - Mechanical soft diet per ST recs 2. E Coli UTI - on Abx Needs PT eval DC planning The care for this patient was discussed with my supervising physician Time spent for this case was approximately 31 minutes Duarte Carrasquillo Aug 28, 2020 09:05
--- NOTE | 2020-08-28 10:12 | NUR ---
CASE MANAGEMENT:REVIEW 08/28/20 SI: E COLI UTI. DEHYDRATION. FTT 98.8 77 19 128/76 97% ON RA IS: IV ROCEPHIN Q24 IVF@75/HR REMERON PO QHS NORVASC PO Q12 PROTONIX PO QD FLOMAX PO QD NEURONTIN PO TID ARICEPT PO QD : MED/SURG STATUS 4 EAST PLAN: UNSTEADY GAIT...ONLY AMBULATING 50FT...REFER TO SNF
--- NOTE | 2020-08-28 11:04 | Surgery Progress Note ---
Surgery Progress Note Subjective Symptoms: improved, tolerating diet, passing flatus Additional Comments no acute events labs noted exam stable Objective Last 24 Hour Vital Signs Date Time Temp Pulse Resp B/P (MAP) Pulse Ox O2 Delivery O2 Flow Rate FiO2 08/28/20 09:00 Room Air 08/28/20 08:36 77 128/76 08/28/20 08:00 98.8 77 19 128/76 (93) 97 08/28/20 04:00 97.8 73 20 128/71 (90) 96 08/28/20 00:00 98.5 70 18 124/57 (79) 96 08/27/20 21:00 Room Air 08/27/20 20:07 72 118/60 08/27/20 20:00 98.0 72 20 118/60 (79) 96 08/27/20 16:00 98.1 69 18 114/62 (79) 96 08/27/20 12:00 97.7 66 18 120/60 (80) 96 I&O Intake and Output 08/27/20 08/28/20 19:00 07:00 Intake Total 1180 ml 825 ml Balance 1180 ml 825 ml Intake Oral 600 ml IV Total 580 ml 825 ml # Voids 3 2 Dressing: dry Wound: clean Cardiovascular: RSR Respiratory: clear, decreased breath sounds Abdomen: soft, non-tender, present bowel sounds, non-distended Extremities: no edema, no tenderness, no cyanosis Plan Problems: (1) Failure to thrive (2) Weakness (3) UTI (urinary tract infection) (4) Adult failure to thrive Assessment & Plan: poor po intake uti on abx labs noted bmi low not eating well may really need to consider alternative nutrition cont push encourage po intake DAILY ESTIMATED NEEDS: Needs based on Underweight/ 40.3kg 30-35 kcals/kg 3974-7661 total kcals 1-1.5 g protein/kg 40-60 g total protein 25-30 mL/kg 5478-3804 total fluid mLs NUTRITION DIAGNOSIS: Increased kcal/prot needs R/T underweight status as evidenced by pt @ 89% IBW w/ BMI of 17.4, low BMI per guidelines, admitted w/ FTT dx. CURRENT DIET:REGULAR PO DIET RECOMMENDATIONS: Maintain liberalized regular diet/ texture per AGRICULTURAL RESEARCHER ADDITIONAL RECOMMENDATIONS: * Calibrated bedscale wt * Ensure Enlive TID w/ meals (350kcal/20g prot each) * F/up w/ AGRICULTURAL RESEARCHER rec regarding texture * MVI x 1 * Maintain D5 w/ poor PO Additional Comments of note patient seen and examined 08/27. unable to write note for log in issue Geronimo Ybarra Aug 28, 2020 11:04
--- NOTE | 2020-08-28 11:57 | Internal Med Progress Note ---
Subjective Date of Service: Aug 27, 2020 Physician Name LaurentRoz Attending Physician Hayden Fernandes MD Current Medications Medications (Trade) Dose Ordered Sig/Demetrice Route PRN Reason Start Time Stop Time Status Last Admin Dose Admin Acetaminophen (Tylenol) 650 mg Q6H PRN ORAL For Pain 08/24/20 13:30 09/23/20 13:29 Amlodipine Besylate (Norvasc) 5 mg Q12HR ORAL 08/25/20 21:00 09/24/20 20:59 08/28/20 08:36 Ceftriaxone Sodium 1 gm/ Dextrose 55 ml @ 110 mls/hr Q24H IVPB 08/25/20 09:00 09/01/20 08:59 08/28/20 08:37 Dextrose/ Electrolytes 1,000 ml @ 75 mls/hr [id number] IV 08/25/20 14:00 09/24/20 13:59 08/28/20 08:37 Donepezil HCl (Aricept) 10 mg DAILY ORAL 08/25/20 09:00 09/24/20 08:59 08/28/20 08:36 Ferrous Sulfate (Feosol) 325 mg TWICE A DAY ORAL 08/25/20 09:00 11/23/20 08:59 08/28/20 08:36 Gabapentin (Neurontin) 100 mg THREE TIMES A DAY ORAL 08/25/20 09:00 09/24/20 08:59 08/28/20 08:36 Hydralazine HCl (Apresoline) 50 mg Q6H PRN ORAL SBP >140 08/24/20 18:00 11/22/20 17:59 08/25/20 10:12 Levothyroxine Sodium (Synthroid) 50 mcg DAILY@0630 ORAL 08/25/20 06:30 09/24/20 06:29 08/28/20 05:51 Mirtazapine (Remeron) 15 mg BEDTIME ORAL 08/26/20 21:00 11/24/20 20:59 08/27/20 20:22 Multivitamins (Multivitamins) 1 tab DAILY ORAL 08/27/20 09:00 09/26/20 08:59 08/28/20 08:36 Olanzapine (ZyPREXA) 5 mg Q6H PRN ORAL agitation 08/25/20 21:00 10/09/20 20:59 Pantoprazole (Protonix) 40 mg DAILY ORAL 08/25/20 09:00 09/24/20 08:59 08/28/20 08:36 Tamsulosin HCl (Flomax) 0.4 mg DAILY ORAL 08/25/20 09:00 09/24/20 08:59 08/28/20 08:36 Allergies: Coded Allergies: No Known Allergies (Unverified , 08/24/20) Subjective more alert now taking medications eating more no nausea tolerating abx evaluated by psych Objective Last Vital Signs Date Time Temp Pulse Resp B/P (MAP) Pulse Ox O2 Delivery O2 Flow Rate FiO2 08/28/20 09:00 Room Air 08/28/20 08:36 77 128/76 08/28/20 08:00 98.8 19 97 Intake and Output 08/27/20 08/28/20 19:00 07:00 Intake Total 1180 ml 825 ml Balance 1180 ml 825 ml Intake Oral 600 ml IV Total 580 ml 825 ml # Voids 3 2 Objective General appearance: alert, cooperative, no distress, appears stated age Head: Normocephalic, without obvious abnormality, atraumatic Eyes: conjunctivae/corneas clear. PERRL, EOM's intact. Fundi benign Throat: Lips, mucosa, and tongue normal. Teeth and gums normal Neck: supple, symmetrical, trachea midline, no adenopathy, thyroid: not enlarged, symmetric, no tenderness/mass/nodules, no carotid bruit and no JVD Lungs: clear to auscultation bilaterally Heart: regular rate and rhythm, S1, S2 normal, no murmur, click, rub or gallop Abdomen: soft, non-tender. Bowel sounds normal. No masses, no organomegaly Extremities: extremities normal, atraumatic, no cyanosis or edema Pulses: 2+ and symmetric Skin: Skin color, texture, turgor normal. No rashes or lesions Neurologic: Grossly normal Assessment/Plan Assessment/Plan #UTI #Hyponatremia #Dehydration #failure to thirve #inability to care for self #hypothyroidism #urinary retention - ceftriaxone 1g daily - levothyroxine - flomax - add amlodipine 5mg BID - hydralazine prn for BP control - PT eval - snf eval - monitor Roz Newell M.D. Aug 28, 2020 11:57
--- NOTE | 2020-08-28 13:04 | NUR ---
RD ASSESSMENT & RECOMMENDATIONS SEE CARE ACTIVITY FOR COMPLETE ASSESSMENT DAILY ESTIMATED NEEDS: Needs based on Underweight/ 40.3kg 30-35 kcals/kg 3437-6266 total kcals 1-1.5 g protein/kg 40-60 g total protein 25-30 mL/kg 8304-4776 total fluid mLs NUTRITION DIAGNOSIS: Increased kcal/prot needs R/T underweight status as evidenced by pt @ 89% IBW w/ BMI of 17.4, low BMI per guidelines, admitted w/ FTT dx. CURRENT DIET:REGULAR, now ms ground PO DIET RECOMMENDATIONS: Maintain liberalized regular diet/ texture per ENGLISH LANGUAGE LEARNER TEACHER ADDITIONAL RECOMMENDATIONS: * Calibrated bedscale wt * Ensure Enlive TID w/ meals (350kcal/20g prot each) * F/up w/ ENGLISH LANGUAGE LEARNER TEACHER rec regarding texture-> now on ms ground * MVI x 1 * Maintain D5 w/ fair to poor po intake monitor BG/ bedside BG
--- NOTE | 2020-08-28 13:32 | NUR ---
insurance CLINICALS/REVIEW FAXED TO [facility] [phone]
--- NOTE | 2020-08-28 14:23 | NUR ---
*-*DISCHARGE PLANNING*-* CLINICALS FAXED TO : [facility] [employer] P: [phone] S/W MOLLY , WILL CALL BACK.
--- NOTE | 2020-08-28 16:00 | NUR ---
*-*DISCHARGE PLANNING*-* PATIENT HAS BEEN REFERRED TO: [facility] P: [phone] S/W NICK, WILL CALL BACK AFTER REVIEW.
--- NOTE | 2020-08-28 16:25 | NUR ---
*-*DISCHARGE PLANNING*-* PATIENT HAS BEEN REFERRED TO: [facility] P: [phone] S/W NICK, WILL CALL BACK WITH ROOM#, ONCE RECEIVED AUTH.
--- NOTE | 2020-08-28 19:33 | NUR ---
NURSE HAND-OFF: Important Events on Shift:SP eval: mechanical soft diet, thin liquid, aspiration and fall risk, 1 to 1 feed Patient Status: stable Diet: mechanical soft diet, thin liquid regular Pending Orders: Pending Results/Labs: Pending MD notification: Latest Vital Signs: Temperature 98.0 , Pulse 87 , B/P 129 /67 , Respiratory Rate 17 , O2 SAT 98 , Room Air, O2 Flow Rate . Vital Sign Comment: stable Latest Quiroz Fall Score: 50 Fall Risk: High Risk Safety Measures: Call light Within Reach, Bed Alarm Zone 2, Side Rails Side Rails x2, Bed position Low and Locked. Fall Precautions: Yellow Socks Door Sign Patient Fall Education Report given to
--- NOTE | 2020-08-28 19:45 | NUR ---
NURSE NOTES: Patient in bed, asleep, arousable to name and to touch. Abdomen is soft and non distended. Skin is warm and dry touch.Iv site noted, iv fluid is infusing as ordered. REspiration is even and unlabored. Kept clean and comfortable. Provided safe environment. call light is at bedside. Will continue plan of care.
[2020-08-29 04:00] VITALS: BP 148/70
--- NOTE | 2020-08-29 07:07 | NUR ---
NURSE HAND-OFF: Important Events on Shift:WNL Patient Status: WNL Diet: REg mech soft Pending Orders: Pending Results/Labs: Pending MD notification: Latest Vital Signs: Temperature 97.8 , Pulse 78 , B/P 148 /70 , Respiratory Rate 16 , O2 SAT 98 , Room Air, O2 Flow Rate . Vital Sign Comment: WNL Latest Quiroz Fall Score: 50 Fall Risk: High Risk Safety Measures: Call light Within Reach, Bed Alarm Zone 2, Side Rails Side Rails x2, Bed position Low and Locked. Fall Precautions: Yellow Socks Door Sign Patient Fall Education Report given to Chico Logan.
--- NOTE | 2020-08-29 07:10 | NUR ---
NURSE NOTES: Received report from Marco A Golden. Patient is in bed, awake, A&O x3/4, no acute distress. Breakfast set up, patient reports no appetite, PO intake encouraged. IVF running per order. Fall precautions, bed in lowest position, call light in reach, side rails up. No pain. On room air, no Sob.
[2020-08-29 08:00] VITALS: BP 155/78
[2020-08-29] MEDS: cefTRIAXone 1 GM in D5W 55 ML IVPB SCH (09:44)
[2020-08-29] MEDS: Donepezil 10mg tab ORAL SCH (09:45)
[2020-08-29] MEDS: Tamsulosin 0.4mg cap ORAL SCH (09:45)
--- NOTE | 2020-08-29 11:14 | Pulmonology Progress Note ---
Subjective ROS Limited/Unobtainable: No HEENT: Repors: no symptoms Respiratory: Reports: no symptoms Cardiovascular: Reports: no symptoms Allergies: Coded Allergies: No Known Allergies (Unverified , 08/24/20) Objective Last 24 Hour Vital Signs Date Time Temp Pulse Resp B/P (MAP) Pulse Ox O2 Delivery O2 Flow Rate FiO2 08/29/20 09:45 85 155/78 08/29/20 09:00 Room Air 08/29/20 08:00 97.9 85 18 155/78 (103) 99 08/29/20 04:00 97.8 78 16 148/70 (96) 98 08/28/20 23:35 98.3 66 20 124/72 (89) 97 08/28/20 20:51 72 123/74 08/28/20 20:27 Room Air 08/28/20 20:00 98.0 72 20 123/74 (90) 98 08/28/20 16:00 98.0 87 17 129/67 (87) 98 08/28/20 12:00 97.0 79 17 121/69 (86) 98 Intake and Output 08/28/20 08/29/20 19:00 07:00 Intake Total 1030 ml 900 ml Balance 1030 ml 900 ml Intake Oral 300 ml IV Total 430 ml 600 ml Other 600 ml # Voids 2 # Bowel Movements 1 General Appearance: no acute distress Respiratory: chest wall non-tender, lungs clear Cardiovascular: normal rate, regular rhythm Current Medications Medications (Trade) Dose Ordered Sig/Demetrice Route PRN Reason Start Time Stop Time Status Last Admin Dose Admin Acetaminophen (Tylenol) 650 mg Q6H PRN ORAL For Pain 08/24/20 13:30 09/23/20 13:29 Amlodipine Besylate (Norvasc) 5 mg Q12HR ORAL 08/25/20 21:00 09/24/20 20:59 08/29/20 09:45 Ceftriaxone Sodium 1 gm/ Dextrose 55 ml @ 110 mls/hr Q24H IVPB 08/25/20 09:00 09/01/20 08:59 08/29/20 09:44 Dextrose/ Electrolytes 1,000 ml @ 75 mls/hr [id number] IV 08/25/20 14:00 09/24/20 13:59 08/29/20 06:14 Donepezil HCl (Aricept) 10 mg DAILY ORAL 08/25/20 09:00 09/24/20 08:59 08/29/20 09:45 Ferrous Sulfate (Feosol) 325 mg TWICE A DAY ORAL 08/25/20 09:00 11/23/20 08:59 08/29/20 09:45 Gabapentin (Neurontin) 100 mg THREE TIMES A DAY ORAL 08/25/20 09:00 09/24/20 08:59 08/29/20 09:45 Hydralazine HCl (Apresoline) 50 mg Q6H PRN ORAL SBP >140 08/24/20 18:00 11/22/20 17:59 08/25/20 10:12 Levothyroxine Sodium (Synthroid) 50 mcg DAILY@0630 ORAL 08/25/20 06:30 09/24/20 06:29 08/29/20 06:11 Mirtazapine (Remeron) 15 mg BEDTIME ORAL 08/26/20 21:00 11/24/20 20:59 08/28/20 20:51 Multivitamins (Multivitamins) 1 tab DAILY ORAL 08/27/20 09:00 09/26/20 08:59 08/29/20 09:45 Olanzapine (ZyPREXA) 5 mg Q6H PRN ORAL agitation 08/25/20 21:00 10/09/20 20:59 Pantoprazole (Protonix) 40 mg DAILY ORAL 08/25/20 09:00 09/24/20 08:59 08/29/20 09:45 Tamsulosin HCl (Flomax) 0.4 mg DAILY ORAL 08/25/20 09:00 09/24/20 08:59 08/29/20 09:45 Assessment/Plan Assessment/Plan 1. Failure to thrive. - Mechanical soft diet per ST recs - pt refusing oral feeding 2. E Coli UTI - on Abx 3. Hypothyroidism - on Synthroid Needs PT eval DC planning The care for this patient was discussed with my supervising physician Time spent for this case was approximately 31 minutes Duarte Carrasquillo Aug 29, 2020 11:14
[2020-08-29 12:00] VITALS: BP 121/64
--- NOTE | 2020-08-29 12:21 | NUR ---
*-*DISCHARGE PLANNED*-* PATIENT HAS BEEN ACCEPTED AND WEILL BE DISCHARGED TO: [facility] P: [phone] FOR NURSE TO NURSE REPORT ROOM# 12.[facility] FOR 1330PM S/W OREN [id number]. S/W PATIENT FAMILY LINAD WHO IS IN AGREEMENT WITH DISCHARGE PLAN.
[2020-08-29] MEDS ORDERED: NORVASC5 MG ORAL (12:41)
[2020-08-29] MEDS ORDERED: MIRTAZAPINE15 M3 ORAL (12:41)
[2020-08-29] MEDS ORDERED: MULTIVITAMINS1 EAC2 ORAL (12:41)
[2020-08-29] MEDS ORDERED: BACTRIM-DS1 EA ORAL (13:03)
--- NOTE | 2020-08-29 13:49 | NUR ---
NURSE NOTES: DISCHARGE NOTE Patient discharged accompanied by ambulance personnel. In stable condition, room air, no Sob, not in acute distress. Belonging given to ambulance personnel. Report given to FILIPPO Carolina at [facility] Marco A. Patient unable to sign discharge papers. Packet given to EMS. Transported via gurney. Walker provided per order. Addendum: 08/29/20 at 1407 by Shelley Horton RN IV removed
--- NOTE | 2020-08-29 18:21 | NUR ---
INSURANCE CLINICALS FAXED TO [facility] [phone]
--- NOTE | 2020-08-29 19:55 | Internal Med Progress Note ---
Subjective Physician Name Roz Mancilla Attending Physician Hayden Fernandes MD Allergies: Coded Allergies: No Known Allergies (Unverified , 08/24/20) Subjective more alert now taking medications eating more no nausea tolerating abx evaluated by psych Objective Last Vital Signs Date Time Temp Pulse Resp B/P (MAP) Pulse Ox O2 Delivery O2 Flow Rate FiO2 08/29/20 12:00 97.3 85 18 121/64 (83) 98 08/29/20 09:00 Room Air Intake and Output 08/28/20 08/29/20 19:00 07:00 Intake Total 1030 ml 900 ml Balance 1030 ml 900 ml Intake Oral 300 ml IV Total 430 ml 600 ml Other 600 ml # Voids 2 # Bowel Movements 1 Objective General appearance: alert, cooperative, no distress, appears stated age Head: Normocephalic, without obvious abnormality, atraumatic Eyes: conjunctivae/corneas clear. PERRL, EOM's intact. Fundi benign Throat: Lips, mucosa, and tongue normal. Teeth and gums normal Neck: supple, symmetrical, trachea midline, no adenopathy, thyroid: not enlarged, symmetric, no tenderness/mass/nodules, no carotid bruit and no JVD Lungs: clear to auscultation bilaterally Heart: regular rate and rhythm, S1, S2 normal, no murmur, click, rub or gallop Abdomen: soft, non-tender. Bowel sounds normal. No masses, no organomegaly Extremities: extremities normal, atraumatic, no cyanosis or edema Pulses: 2+ and symmetric Skin: Skin color, texture, turgor normal. No rashes or lesions Neurologic: Grossly normal Assessment/Plan Assessment/Plan #UTI #Hyponatremia #Dehydration #failure to thirve #inability to care for self #hypothyroidism #urinary retention - ceftriaxone 1g daily - levothyroxine - flomax - add amlodipine 5mg BID - hydralazine prn for BP control - PT eval - snf eval - monitor Roz Newell M.D. Aug 29, 2020 19:55
--- NOTE | 2020-08-30 09:03 | CDS Physician Query ---
Clarification is required for compliance, coding accuracy, and to reflect severity of illness for this patient Dear Mr. Duarte Carrasquillo Date: 08/27/2019 High Risk Case Manager/CDS Name: Arin Zee Clinical Documentation states: HNP - 79 year ofd female with history of dementia and HDL presents with failure to thrive and dysuria...#UTI #Dehydration #failure to thirve RD note: NUTRITION DIAGNOSIS: Increased kcal/prot needs R/T underweight status as evidenced by pt @ 89% IBW w/ BMI of 17.4, low BMI per guidelines, admitted w/ FTT dx. Please select the most appropriate option: [] Protein/Calorie Malnutrition [] Mild [] Moderate [] Severe [] Hypoalbuminemia [] Cachexia [] Underweight [] Intestinal malabsorption [] Other [] Unable to determine [] Not Applicable Present on Admission: [] Yes [] No [] Clinically Undetermined Physician signature Date Please also document in your Progress Notes and/or Discharge Summary and indicate if the condition was present on admission. MTDD
--- NOTE | 2020-09-01 15:41 | Discharge Summary ---
Discharge Summary Discharge Summary _ Date of admission: 08/24/2020 Date of discharge: 08/29/[address] Fernandes History of Present Illness and Brief Hospital Course Ms. Wong is a 80-year-old female with past medical history of dementia, hyperlipidemia, hypertension, failure to thrive, depression, and anxiety, who presented to ED for evaluation of dysuria over the last few months. Her initial laboratory studies were unremarkable for leukocytosis. Urinalysis did show presence of bacteria. She tested negative for COVID-19 in the ER via rapid gene assay. For her UTI, she was started on ceftriaxone. Given associated urinary retention, she was also started on Flomax as well. Her urine culture grew E. coli. Given patient's underlying dementia, she was evaluated by a psychiatrist. Patient was found to have blunted affect, and impaired cognition/insight/judgment. She was started on Zyprexa and mirtazapine. Patient lacked capacity to make decisions. Given her history of hypothyroidism, her Synthroid was continued during hospitalization. Throughout her hospitalization, patient's medical condition remained stable. She was treated for UTI and her oral feeding improved. On 08/29/2020, the patient was medically stable for discharge and she was discharged to care home facility. Consultants: Psychiatry Dr. Aquino Neurology Dr. Abdul Surgery Dr. Ybarra Nephrology Dr. Mancilla Discharge Condition Improved and stable Final diagnoses Sepsis E. coli UTI Encephalopathy likely secondary to sepsis and UTI Malnutrition Hyponatremia Dehydration Hypothyroidism Urinary retention Dementia Depressive disorder I have been assigned to dictate discharge summary for this account. Duarte Carrasquillo Sep 01, 2020 15:41
--- NOTE | 2020-09-02 09:12 | NUR ---
INSURANCE DC SUMMARY FAXED TO [facility] [phone]
[2020-09-03] MEDS ORDERED: ERGOCALCIFEROL1 GM MC (21:36)
== END 2020-08-29 14:20 | DRG 871 ==
LOC: EMR 08:14 → EDBEDREQ 08:48 → 4E 11:50 → EDBEDREQ 12:36
DX: A41.9 Sepsis, unspecified organism (principal); G93.41 Metabolic encephalopathy; N39.0 Urinary tract infection, site not specified; E87.1 Hypo-osmolality and hyponatremia; Z68.1 Body mass index [BMI] 19.9 or less, adult; E44.1 Mild protein-calorie malnutrition; E86.0 Dehydration; F03.90 Unspecified dementia, unspecified severity, without behavioral disturbance, psychotic disturbance, mood disturbance, and anxiety; R62.7 Adult failure to thrive; R33.9 Retention of urine, unspecified; B96.20 Unspecified Escherichia coli [E. coli] as the cause of diseases classified elsewhere; F32.9 Major depressive disorder, single episode, unspecified; F41.9 Anxiety disorder, unspecified
CPT/HCPCS: 36415; 80048; 80053; 81003; 83690; 83735; 84100; 84134; 85025; 87086; 87181; 92610; 96361; 96365; 99285; J7030; U0002

== ENCOUNTER 2020-09-03 19:22 | Inpatient (IN) | payer BC, OTHER ==
[~2020-09-03] VITALS: Ht 154.9 cm; Wt 41.7 kg
[~2020-09-03 19:22] MED LIST: BACTRIM-DS1 EA ORAL; DONEPEZIL HCL10 MG ORAL; FERROUS SULFAT325 MG ORAL; FLOMAX0.4 MG ORAL; GABAPENTIN100 MG ORAL; LEVOXYL50 MCG ORAL; MIRTAZAPINE15 M3 ORAL; MULTIVITAMINS1 EAC2 ORAL; NORVASC5 MG ORAL; OMEPRAZOLE40 M1 ORAL
[2020-09-03] MEDS ORDERED: Morphine Sulfate 2mg/ml Inj(IV/IM USE ONLY) IVP ONE (19:45)
--- NOTE | 2020-09-03 20:02 | NUR ---
ED Nurse Note: Pt comes in via EMS from SNF. Pt had an unwitnessed fall and c/o right hip pain and bilateral rib and back pain. Pt has hx of dementia, FTT, UTI, hip fx and renal insufficiency. Pt is a poor historian. Med rec was not brought with pt. VS are stable. breathing without complications on RA. Pt resting comfortably. 20 G in right AC establinshed, labs drawn and sent, pain medications given. Xray was taken. Pt taken to CT. Will continue to monitor
--- NOTE | 2020-09-03 20:22 | NUR ---
ED Nurse Note: pt returns from CT
[2020-09-03 20:30] LABS: HEMATOCRIT 30.4 % (37.0-47.0); HEMOGLOBIN 9.9 G/DL (12.0-16.0); MEAN CORPUSCULAR VOLUME 94 FL (80-99); PLATELET COUNT 198 K/UL (150-450); RED BLOOD COUNT 3.25 M/UL (4.20-5.40); RED CELL DISTRIBUTION WIDTH 12.4 % (11.6-14.8); WHITE BLOOD COUNT 12.6 K/UL (4.8-10.8)
[2020-09-03 20:33] LABS: CALCIUM 8.5 MG/DL (8.5-10.1); CREATININE 2.2 MG/DL (0.55-1.30); POTASSIUM 4.3 MMOL/L (3.5-5.1)
[2020-09-03 20:37] LABS: ALBUMIN 3.4 G/DL (3.4-5.0); ALBUMIN/GLOBULIN RATIO 0.8 (1.0-2.7); BILIRUBIN,TOTAL 0.3 MG/DL (0.2-1.0)
[2020-09-03 20:41] VITALS: BP 105/61
--- NOTE | 2020-09-03 20:42 | Emergency Room Report ---
History of Present Illness General Chief Complaint: Multiple Trauma/Fall Source: Medical Record Present Illness HPI 80-year-old female presents for evaluation. Brought in from [facility] had a recent fall. X-rays were done which showed a right femur fracture. On arrival patient presents with right hip pain. Shortening of the right leg. Sharp, 8 out of 10, nonradiating. Denies any other injuries. No other aggravating relieving factors. 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 COVID-19 Screening: Negative COVID-19 COVID-19 Testing Source: [facility] Patient History Past Medical History: HTN Past Surgical History: none Pertinent Family History: none Social History: Denies: smoking, alcohol use, drug use Last Menstrual Period: n/a Now: No Immunizations: UTD Reviewed Nursing Documentation: PMH: Agreed; PSxH: Agreed Nursing Documentation-PMH Past Medical History: No History, Except For Hx Hypertension: Yes Hx Cancer: No Hx Gastrointestinal Problems: No Hx Neurological Problems: Yes Hx Dementia: Yes Review of Systems All Other Systems: negative except mentioned in HPI Physical Exam Vital Signs Date Time Temp Pulse Resp B/P (MAP) Pulse Ox O2 Delivery O2 Flow Rate FiO2 09/03/20 19:12 98.2 84 18 101/54 (70) 92 Room Air Sp02 EP Interpretation: reviewed, normal General Appearance: no apparent distress, alert, GCS 15, non-toxic, cachetic Head: normocephalic, atraumatic Eyes: bilateral eye normal inspection, bilateral eye PERRL ENT: hearing grossly normal, normal pharynx, no angioedema, normal voice Neck: full range of motion, supple/symm/no masses Respiratory: chest non-tender, lungs clear, normal breath sounds, speaking full sentences Cardiovascular #1: regular rate, rhythm, no edema Cardiovascular #2: 2+ carotid (R), 2+ carotid (L), 2+ radial (R), 2+ radial (L), 2+ dorsalis pedis (R), 2+ dorsalis pedis (L) Gastrointestinal: normal bowel sounds, non tender, soft, non-distended, no guarding, no rebound Rectal: deferred Genitourinary: normal inspection, no CVA tenderness Musculoskeletal: back normal, normal range of motion, gait/station normal, tender - R hip. shortening noted Neurologic: alert, motor strength/tone normal, oriented x3, sensory intact, responsive, speech normal Psychiatric: judgement/insight normal, memory normal, mood/affect normal, no suicidal/homicidal ideation Reflexes: 3+ bicep (R), 3+ bicep (L), 3+ tricep (R), 3+ tricep (L), 3+ knee (R), 3+ knee (L) Lymphatic: no adenopathy Medical Decision Making Diagnostic Impression: Primary Impression: Hip fracture Qualified Codes: S72.001A - Fracture of unspecified part of neck of right femur, initial encounter for closed fracture Additional Impression: Renal insufficiency ER Course Hospital Course 80-year-old female presents with right hip pain status post fall Differential diagnoses include: fracture, dislocation, contusion Clinical course Patient placed on stretcher. After initial history and physical I ordered labs, pain medication and imaging studies Labs reviewed- no leukocytosis noted, bun/cr elevated, hemoglobin/hematocrit okay Right femur film shows intertrochanteric fracture confirmed on CT pelvis IV fluids given. Pain meds given. Case discussed with Dr. Wang who agreed to consult on this case. Case discussed with Dr. Fernandes who agreed to accept the patient to his service for further care and support i. I feel this is a highly complex case requiring extensive working including EKG/Rhythm strip, Xray/CT/US, Blood/urine lab work, repeat exams while in ED, and administration of strong opiates/narcotics for pain control, admission to hospital or close patient follow up. Diagnosis -hip fracture, renal insufficiency Admitted to floor in serious condition Laboratory Tests Test 09/03/20 19:50 White Blood Count 12.6 K/UL (4.8-10.8) H Red Blood Count 3.25 M/UL (4.20-5.40) L Hemoglobin 9.9 G/DL (12.0-16.0) L Hematocrit 30.4 % (37.0-47.0) L Mean Corpuscular Volume 94 FL (80-99) Mean Corpuscular Hemoglobin 30.5 PG (27.0-31.0) Mean Corpuscular Hemoglobin Concent 32.6 G/DL (32.0-36.0) Red Cell Distribution Width 12.4 % (11.6-14.8) Platelet Count 198 K/UL (150-450) Mean Platelet Volume 7.3 FL (6.5-10.1) Neutrophils (%) (Auto) % (45.0-75.0) Lymphocytes (%) (Auto) % (20.0-45.0) Monocytes (%) (Auto) % (1.0-10.0) Eosinophils (%) (Auto) % (0.0-3.0) Basophils (%) (Auto) % (0.0-2.0) Neutrophils % (Manual) Pending Lymphocytes % (Manual) Pending Platelet Estimate Pending Platelet Morphology Pending Prothrombin Time 11.2 SEC (9.30-11.50) Prothromb Time International Ratio 1.0 (0.9-1.1) Activated Partial Thromboplast Time 27 SEC (23-33) Sodium Level 138 MMOL/L (136-145) Potassium Level 4.3 MMOL/L (3.5-5.1) Chloride Level 105 MMOL/L (98-107) Carbon Dioxide Level 21 MMOL/L (21-32) Anion Gap 12 mmol/L (5-15) Blood Urea Nitrogen 44 mg/dL (7-18) H Creatinine 2.2 MG/DL (0.55-1.30) H Estimat Glomerular Filtration Rate 21.4 mL/min (>60) Glucose Level 102 MG/DL (74-106) Calcium Level 8.5 MG/DL (8.5-10.1) Total Bilirubin 0.3 MG/DL (0.2-1.0) Aspartate Amino Transf (AST/SGOT) 64 U/L (15-37) H Alanine Aminotransferase (ALT/SGPT) 31 U/L (12-78) Alkaline Phosphatase 125 U/L (46-116) H Total Protein 7.8 G/DL (6.4-8.2) Albumin 3.4 G/DL (3.4-5.0) Globulin 4.4 g/dL Albumin/Globulin Ratio 0.8 (1.0-2.7) L Other X-Ray Diagnostic Results Other X-Ray Diagnostic Results : X-Ray ordered: R femur # of Views/Limited Vs Complete: 2 View Indication: Pain EP Interpretation: Yes Interpretation: no dislocation, no soft tissue swelling, other - R intertrochanteric fx Impression: Other - fx Electronically Signed by: Electronically signed by Javi Whitaker MD CT/MRI/US Diagnostic Results CT/MRI/US Diagnostic Results : Imaging Test Ordered: CT Pelvis Impression Procedure: CT Pelvis no Contrast EXAM: CT Pelvis Without Intravenous Contrast CLINICAL HISTORY: PAIN TECHNIQUE: Axial computed tomography images of the pelvis without intravenous contrast. CTDI is 3.9 mGy and DLP is 143 mGy-cm. One or more of the following dose reduction techniques were used: automated exposure control, adjustment of the mA and/or kV according to patient size, use of iterative reconstruction technique. COMPARISON: Correlation with the radiographs of the right hip 09/03/201956 hrs. FINDINGS: There is a severely comminuted right intertrochanteric hip fracture with mild angulation and at least mild impaction. Findings similar to that from the radiographs. Patient is status post ORIF left femur. Negative for hip dislocation. Mildly displaced segmental fractures left inferior pubic ramus that may be acute as well. Minimal lucency in the right inferior pubic ramus likely nondisplaced fracture. The visualized GI tract demonstrates no obstruction or pneumatosis. The urinary bladder is moderately distended. Last Vital Signs Date Time Temp Pulse Resp B/P (MAP) Pulse Ox O2 Delivery O2 Flow Rate FiO2 09/03/20 19:12 98.2 84 18 101/54 (70) 92 Room Air Status: improved Disposition: ADMITTED INPATIENT Condition: Serious Referrals: Roz Mancilla M.D. (PCP) Javi Whitaker MD Sep 03, 2020 20:42
--- NOTE | 2020-09-03 20:54 | NUR ---
ED Nurse Note: Pt has no personal belongings. Came in hospital gown and diaper. Pt states she is not wet and does not need changed. Will continue to monitor comfort levels.
[2020-09-03] MEDS ORDERED: MULTIVITAMIN1 EACH PO (21:36)
[2020-09-03] MEDS ORDERED: ERGOCALCIFEROL1 GM PO (21:36)
[2020-09-03] MEDS ORDERED: BACTRIM DS TAB1 EAC1 ORAL (21:36)
--- NOTE | 2020-09-03 21:56 | NUR ---
ED Nurse Note: pt resting comfortably on stretcher. VS WNL. Pt breathing without complications on RA. Pt does have new bruising noticed on left bicep/arm fold area. pt normally gets around with cane or wheelchair at home. pt states she is still dry in her diaper. report given to FILIPPO zendejas on [facility]. pt awaiting transport
--- NOTE | 2020-09-03 21:59 | NUR ---
Received telephone report from Lucille BARKLEY.
--- NOTE | 2020-09-03 22:03 | NUR ---
TRANSFER TO FLOOR: Patient transferred to [facility] 410-2 as ordered, per ED MD . Report given to Estevan< FILIPPO. Belongings on patient.
[2020-09-03 22:15] VITALS: BP 108/81
--- NOTE | 2020-09-03 22:15 | NUR ---
NURSE NOTES: Patient transferred by iain. On room air, breathing is even and unlabored. Complains of pain when changing position. IV right AC intact with no bleeding noted. VS stable. No belongings and patient unable to sign herself. Skin checked and there is bruise on left FA and multiple bruises on bilateral shins. Oriented to hospital room. Bed low and locked. Call light within reach.
[2020-09-03] MEDS ORDERED: Morphine Sulfate 2mg/ml Inj(IV/IM USE ONLY) IVP PRN (22:45)
--- NOTE | 2020-09-03 22:45 | NUR ---
NURSE NOTES: Called for an admission order. Order read back and carried out.
[2020-09-04] VITALS: BP 106/54
[2020-09-04 04:00] VITALS: BP 107/55
--- NOTE | 2020-09-04 07:09 | NUR ---
NURSE NOTES: Patient keeps trying to climb up the bed so she can kneel down on the floor and pray. Patient is confused but alert and oriented to self, location, and what year. Will not put restraints on because patient is alert.
--- NOTE | 2020-09-04 07:30 | NUR ---
NURSE HAND-OFF: Important Events on Shift: Admission, IV hydration, pain management Patient Status: Stable Diet: Regular (pureed) Pending Orders: Pending Results/Labs:[] Pending MD notification:[] Latest Vital Signs: Temperature 98.1 , Pulse 94 , B/P 107 /55 , Respiratory Rate 19 , O2 SAT 92 , Room Air, O2 Flow Rate . Vital Sign Comment: VS stable Latest Quiroz Fall Score: 95 Fall Risk: High Risk Safety Measures: Call light Within Reach, Bed Alarm Zone 1, Side Rails Side Rails x3, Bed position Low and Locked. Fall Precautions: Patient Fall Education Report given to Georgia BARKLEY.
[2020-09-04 08:00] VITALS: BP 124/89
--- NOTE | 2020-09-04 08:15 | NUR ---
NURSE NOTES: Received report from Ascencion BARKLEY. Patient is awake and oriented x2-3, in no distress, reporting no pain at this time. IV intact, patent. Patient having breakfast and tolerating well. Fall precautions maintained and patient updated on plan of care. Side rails upx3, bed low and locked, bed alarm armed. Call light within reach.
[2020-09-04] MEDS: Donepezil 10mg tab ORAL SCH (08:23)
[2020-09-04] MEDS: Tamsulosin 0.4mg cap ORAL SCH (08:23)
--- NOTE | 2020-09-04 09:02 | Consultation ---
History of Present Illness General Chief Complaint: Multiple Trauma/Fall Present Illness HPI This is an 80-year-old female from [facility] with past medical history of hypertension, and dementia, who presents after a mechanical fall. X-ray of hip revealed a right femur fracture. On arrival patient presented with right hip pain with shortening of the right leg. She is reported to test negative for COVID-19 on 08/24/2020. CT pelvis shows right femur intertrochanteric fracture. She was given IV fluids and pain medication and was admitted to the hospital for surgery. PMHx: Hypertension Meds: Amlodipine, donepezil, ergocalciferol, ferrous sulfate, gabapentin, levothyroxine, mirtazapine, multivitamin, omeprazole, tamsulosin Allergies: No known allergies Allergies: Coded Allergies: No Known Allergies (Unverified , 08/24/20) Medication History Scheduled Amlodipine Besylate (Norvasc), 5 MG ORAL Q12HR Donepezil Hcl* (Donepezil Hcl*), 10 MG ORAL DAILY, (Reported) Ergocalciferol (Vitamin D2) (Ergocalciferol), 1 GM PO ONCE A WEEK, (Reported) Ferrous Sulfate* (Ferrous Sulfate*), 325 MG ORAL TWICE A DAY, (Reported) Gabapentin* (Gabapentin*), 100 MG ORAL THREE TIMES A DAY, (Reported) Levothyroxine Sodium* (Levoxyl*), 62.5 MCG ORAL ACBREAKFAST, (Reported) Mirtazapine* (Mirtazapine*), 15 MG ORAL BEDTIME Omeprazole (Omeprazole), 40 MG ORAL DAILY, (Reported) Tamsulosin HCl (Flomax), 0.4 MG ORAL HS, (Reported) Miscellaneous Medications Multivitamin (Multivitamin), 1 EACH PO, (Reported) Discontinued Medications Trimethoprim/Sulfamethoxazole 160/800* (Bactrim Ds Tablet*), 1 TAB ORAL DAILY, (Reported) Discontinued Reason: Therapy completed Patient History Healthcare decision maker Resuscitation status Advanced Directive on File Review of Systems All Other Systems: negative except mentioned in HPI Physical Exam General Appearance: no apparent distress, alert Lines, tubes and drains: peripheral HEENT: normocephalic, atraumatic Neck: non-tender Respiratory/Chest: chest wall non-tender, lungs clear, normal breath sounds Cardiovascular/Chest: normal peripheral pulses, normal rate, regular rhythm Abdomen: normal bowel sounds, non tender, soft Neurologic: alert, oriented x 3 Musculoskeletal: other - R hip pain Last 24 Hour Vital Signs Date Time Temp Pulse Resp B/P (MAP) Pulse Ox O2 Delivery O2 Flow Rate FiO2 09/04/20 08:23 99 124/89 09/04/20 08:00 98.6 99 18 124/89 (101) 94 09/04/20 04:00 98.1 94 19 107/55 (72) 92 09/04/20 00:00 98.5 85 18 106/54 (71) 93 09/03/20 23:00 96 108/81 09/03/20 23:00 Room Air 09/03/20 22:15 97.8 96 17 108/81 (90) 96 09/03/20 22:08 88 22 96 Room Air 09/03/20 20:44 88 23 Room Air 96 09/03/20 20:41 88 23 105/61 96 Room Air 09/03/20 19:12 98.2 84 18 101/54 (70) 92 Room Air Intake and Output 09/03/20 09/04/20 19:00 07:00 Intake Total 750 ml Balance 750 ml Intake Oral 400 ml IV Total 350 ml # Voids 1 Laboratory Tests Test 09/03/20 19:50 White Blood Count 12.6 K/UL (4.8-10.8) H Red Blood Count 3.25 M/UL (4.20-5.40) L Hemoglobin 9.9 G/DL (12.0-16.0) L Hematocrit 30.4 % (37.0-47.0) L Mean Corpuscular Volume 94 FL (80-99) Mean Corpuscular Hemoglobin 30.5 PG (27.0-31.0) Mean Corpuscular Hemoglobin Concent 32.6 G/DL (32.0-36.0) Red Cell Distribution Width 12.4 % (11.6-14.8) Platelet Count 198 K/UL (150-450) Mean Platelet Volume 7.3 FL (6.5-10.1) Neutrophils (%) (Auto) % (45.0-75.0) Lymphocytes (%) (Auto) % (20.0-45.0) Monocytes (%) (Auto) % (1.0-10.0) Eosinophils (%) (Auto) % (0.0-3.0) Basophils (%) (Auto) % (0.0-2.0) Differential Total Cells Counted 100 Neutrophils % (Manual) 87 % (45-75) H Lymphocytes % (Manual) 10 % (20-45) L Monocytes % (Manual) 3 % (1-10) Eosinophils % (Manual) 0 % (0-3) Basophils % (Manual) 0 % (0-2) Band Neutrophils 0 % (0-8) Platelet Estimate Adequate Platelet Morphology Normal Red Blood Cell Morphology Normal Prothrombin Time 11.2 SEC (9.30-11.50) Prothromb Time International Ratio 1.0 (0.9-1.1) Activated Partial Thromboplast Time 27 SEC (23-33) Sodium Level 138 MMOL/L (136-145) Potassium Level 4.3 MMOL/L (3.5-5.1) Chloride Level 105 MMOL/L (98-107) Carbon Dioxide Level 21 MMOL/L (21-32) Anion Gap 12 mmol/L (5-15) Blood Urea Nitrogen 44 mg/dL (7-18) H Creatinine 2.2 MG/DL (0.55-1.30) H Estimat Glomerular Filtration Rate 21.4 mL/min (>60) Glucose Level 102 MG/DL (74-106) Calcium Level 8.5 MG/DL (8.5-10.1) Total Bilirubin 0.3 MG/DL (0.2-1.0) Aspartate Amino Transf (AST/SGOT) 64 U/L (15-37) H Alanine Aminotransferase (ALT/SGPT) 31 U/L (12-78) Alkaline Phosphatase 125 U/L (46-116) H Total Protein 7.8 G/DL (6.4-8.2) Albumin 3.4 G/DL (3.4-5.0) Globulin 4.4 g/dL Albumin/Globulin Ratio 0.8 (1.0-2.7) L Height (Feet): 5 Height (Inches): 1.00 Weight (Pounds): 100 Medications Current Medications Medications (Trade) Dose Ordered Sig/Demetrice Route PRN Reason Start Time Stop Time Status Last Admin Dose Admin Amlodipine Besylate (Norvasc) 5 mg Q12HR ORAL 09/03/20 23:00 10/03/20 22:59 09/04/20 08:23 Donepezil HCl (Aricept) 10 mg DAILY ORAL 09/04/20 09:00 10/04/20 08:59 09/04/20 08:23 Ferrous Sulfate (Feosol) 325 mg TWICE A DAY ORAL 09/04/20 09:00 12/03/20 08:59 09/04/20 08:23 Gabapentin (Neurontin) 100 mg THREE TIMES A DAY ORAL 09/04/20 09:00 10/04/20 08:59 09/04/20 08:23 Levothyroxine Sodium (Synthroid) 50 mcg BEFORE BREAKFAST ORAL 09/04/20 06:30 10/04/20 06:29 09/04/20 06:54 Mirtazapine (Remeron) 15 mg BEDTIME ORAL 09/04/20 21:00 12/03/20 20:59 Morphine Sulfate (Morphine Sulfate) 2 mg Q6H PRN IVP For Pain 09/03/20 22:45 09/10/20 22:44 Sodium Chloride 1,000 ml @ 50 mls/hr Q20H IV 09/03/20 22:45 10/03/20 22:44 09/03/20 23:12 Tamsulosin HCl (Flomax) 0.4 mg DAILY ORAL 09/04/20 09:00 10/04/20 08:59 09/04/20 08:23 Assessment/Plan Diagnosis [place]: #SOILA - pre-renal azotemia #HTN #right femur fracture #dementia #Hypothyroidism - IVF - pain control - ortho eval - flomax - monitor BP - levothyroxine time spent 65min Roz Mancilla M.D. Sep 04, 2020 09:02
--- NOTE | 2020-09-04 09:03 | NUR ---
NURSE NOTES: Received call from Dr. Wang, provided MD with update on patient status. MD ordered NPO at midnight and consent for R hip ORIF for tomorrow. Orders read back and entered.
--- NOTE | 2020-09-04 09:36 | NUR ---
CASE MANAGEMENT:REVIEW 80 YR OLD FEMALE BIBA FROM [facility] CC: MULTIPLE FALLS SI: RT HIP FRACTURE. RENAL INSUFF 98.2 84 18 101/54 92% ON RA WBC+12.6 BUN+44 CR+2.2 IS: IV MORPHINE CT PELVIS XRAY CHEST AND FEMUR : TO MED/SURG DCP; RETURN TO SNF UPON DISCHARGE PLAN: SURGERY SCHEDULED FOR 09/05/20 @ 0730 ~ RT HIP ORIF
--- NOTE | 2020-09-04 11:49 | History & Physical ---
History and Physical History & Physicial Attending physician: Dr. Fernandes Reason for admission: Status post mechanical fall HPI: This is an 80-year-old female from SNF with past medical history of hypertension, and dementia, who presents after a mechanical fall. X-ray of hip revealed a right femur fracture. On arrival patient presented with right hip pain with shortening of the right leg. She is reported to test negative for COVID-19 on 08/24/2020. CT pelvis shows right femur intertrochanteric fracture. She was given IV fluids and pain medication and was admitted to the hospital for surgery. PMHx: Hypertension Meds: Amlodipine, donepezil, ergocalciferol, ferrous sulfate, gabapentin, levothyroxine, mirtazapine, multivitamin, omeprazole, tamsulosin Allergies: No known allergies FHx: Unknown Personal/Social Hx: Resident of SNF ROS: Negative except mentioned in HPI PE: VS: BP 124/89, HR 99, RR 18, wt 45 kg, ht 155 cm General: Patient in bed, NAD when not moving, moderate pain on movement due to right hip fracture HEENT: Head examination reveals that the head is normocephalic, atraumatic without deformity or unusual swelling. Pupils are round, reactive to light and accommodation normally. Missing teeth Chest and Lung: Reveals clear, normal, symmetrical breath sounds with no adventitious sound. Expansion is normal. There are no surgical scars. Cardiovascular: Reveals normal S1, S2 without murmurs, rubs or clicks Abdomen: Soft with no tenderness or organomegaly Rectal: Deferred Musculoskeletal: There is no tenderness to palpation. Range of motion is normal Neurological: Benign essential tremor Laboratory data: Lab testing shows WBC 12.6, hemoglobin 9.9, hematocrit 30.4 Chemistries BUN 44, creatinine 2.2, AST 64, alk phos 125 Impression and recommendation: 1. Right hip fracture -We will get cardiac clearance for surgery tomorrow -Ordered chest x-ray, EKG, and echocardiogram -N.p.o. at midnight for surgery tomorrow 2. Hypertension -We will continue home antihypertensives 3. SOILA - IVF The care for this patient was discussed with my supervising physician. Time spent for this case was approximately 31 minutes. Duarte Carrasquillo Sep 04, 2020 11:49
[2020-09-04 12:00] VITALS: BP 105/59
--- NOTE | 2020-09-04 12:32 | Anethesia Preoperative Eval ---
Anesthesia Pre-op PMH/ROS General Date of Evaluation: Sep 04, 2020 Time of Evaluation: 12:29 Anesthesiologist: Dale ASA Score: ASA 3 Mallampati Score Class I : Soft palate, uvula, fauces, pillars visible Class II: Soft palate, uvula, fauces visible Class III: Soft palate, base of uvula visible Class IV: Only hard plate visible Mallampati Classification: Class III Surgeon: Felipe Diagnosis: R femoral Fx Surgical Procedure: ORIF Anesthesia History: none Family History: no anesthesia problems Allergies: Coded Allergies: No Known Allergies (Unverified , 08/24/20) Medications: see eMAR Patient NPO?: Yes Past Medical History Cardiovascular: Reports: HTN; Denies: CAD, MA, valve dz, arrhythmia, other Pulmonary: Denies: asthma, COPD, APPLE, other Gastrointestinal/Genitourinary: Reports: GERD, CRI; Denies: ESRD, other Neurologic/Psychiatric: Reports: dementia, depression/anxiety; Denies: CVA, TIA, other Endocrine: Reports: hypothyroidism HEENT: Denies: cataract (L), cataract (R), glaucoma, CABAZON (L), CABAZON (R), other Hematology/Immune: Reports: anemia - of chronic d-s; Denies: DVT, bleeding disorder, other Musculoskeletal/Integumentary: Reports: OA, other - osteoporosis; Denies: RA, DJD, DDD, edema Other: other - malnourished PMH Narrative: as above PSxH Narrative: L hip ORIF Anesthesia Pre-op Phys. Exam Physician Exam Last Vital Signs Date Time Temp Pulse Resp B/P (MAP) Pulse Ox O2 Delivery O2 Flow Rate FiO2 09/04/20 12:00 98.3 74 18 105/59 (74) 94 09/04/20 09:00 Room Air 09/03/20 20:44 96 Constitutional: NAD Neurologic: other - unable to obtaine Cardiovascular: RRR, no M/R/G Respiratory: CTA Gastrointestinal: S/NT/ND Airway Exam Mallampati Score: Class III MO: limited Neck: stiff ROM: limited Teeth: missing Dentures: no upper, no lower Anesthesia Pre-op A/P Labs Hematology Test 09/03/20 19:50 White Blood Count 12.6 K/UL (4.8-10.8) H Red Blood Count 3.25 M/UL (4.20-5.40) L Hemoglobin 9.9 G/DL (12.0-16.0) L Hematocrit 30.4 % (37.0-47.0) L Mean Corpuscular Volume 94 FL (80-99) Mean Corpuscular Hemoglobin 30.5 PG (27.0-31.0) Mean Corpuscular Hemoglobin Concent 32.6 G/DL (32.0-36.0) Red Cell Distribution Width 12.4 % (11.6-14.8) Platelet Count 198 K/UL (150-450) Mean Platelet Volume 7.3 FL (6.5-10.1) Neutrophils (%) (Auto) % (45.0-75.0) Lymphocytes (%) (Auto) % (20.0-45.0) Monocytes (%) (Auto) % (1.0-10.0) Eosinophils (%) (Auto) % (0.0-3.0) Basophils (%) (Auto) % (0.0-2.0) Differential Total Cells Counted 100 Neutrophils % (Manual) 87 % (45-75) H Lymphocytes % (Manual) 10 % (20-45) L Monocytes % (Manual) 3 % (1-10) Eosinophils % (Manual) 0 % (0-3) Basophils % (Manual) 0 % (0-2) Band Neutrophils 0 % (0-8) Platelet Estimate Adequate Platelet Morphology Normal Red Blood Cell Morphology Normal Coagulation Test 09/03/20 19:50 Prothrombin Time 11.2 SEC (9.30-11.50) Prothromb Time International Ratio 1.0 (0.9-1.1) Activated Partial Thromboplast Time 27 SEC (23-33) Chemistry Test 09/03/20 19:50 Sodium Level 138 MMOL/L (136-145) Potassium Level 4.3 MMOL/L (3.5-5.1) Chloride Level 105 MMOL/L (98-107) Carbon Dioxide Level 21 MMOL/L (21-32) Anion Gap 12 mmol/L (5-15) Blood Urea Nitrogen 44 mg/dL (7-18) H Creatinine 2.2 MG/DL (0.55-1.30) H Estimat Glomerular Filtration Rate 21.4 mL/min (>60) Glucose Level 102 MG/DL (74-106) Calcium Level 8.5 MG/DL (8.5-10.1) Total Bilirubin 0.3 MG/DL (0.2-1.0) Aspartate Amino Transf (AST/SGOT) 64 U/L (15-37) H Alanine Aminotransferase (ALT/SGPT) 31 U/L (12-78) Alkaline Phosphatase 125 U/L (46-116) H Total Protein 7.8 G/DL (6.4-8.2) Albumin 3.4 G/DL (3.4-5.0) Globulin 4.4 g/dL Albumin/Globulin Ratio 0.8 (1.0-2.7) L Risk Assessment & Plan Assessment: ASA 3 Plan: SAB vs GA Pre-Antibiotics Drug: as scheduled Jigar Hunter MD Sep 04, 2020 12:32
--- NOTE | 2020-09-04 15:59 | Diagnostic Imaging Report ---
Indication: Acute renal failure Technique: Grayscale and duplex images of the kidneys, retroperitoneum, and bladder were obtained. Comparison: none Findings: Exam somewhat technically limited; patient unable to position optimally due to recent hip fracture. Right kidney measures 6.9 cm in length. Left kidney measures 7.6 cm in length. Both kidneys demonstrate normal echogenicity. No hydronephrosis. 6 there is a cyst coming off of the interpolar region of the right kidney. Normal inferior vena cava. Bladder is normal. Impression: Bilateral small kidneys demonstrating slightly increased echogenicity, likely medical renal disease. Negative for hydronephrosis Incidental finding right renal cyst
[2020-09-04 16:00] VITALS: BP 106/58
--- NOTE | 2020-09-04 16:18 | NUR ---
INSURANCE faxed to [facility]#[phone] fax# [phone]
--- NOTE | 2020-09-04 17:05 | NUR ---
NURSE NOTES: RN spoke with Jonathan from lab to verify if covid specimen was sent out. Per Jonathan,specimen was sent out.
--- NOTE | 2020-09-04 17:53 | Consultation ---
History of Present Illness General Chief Complaint: Multiple Trauma/Fall Referring physician: Dr. Fernandes Present Illness HPI This is an 80-year-old female from [facility] with past medical history of hypertension, and dementia, who presents after a mechanical fall. X-ray of hip revealed a right femur fracture. On arrival patient presented with right hip pain with shortening of the right leg. She is reported to test negative for COVID-19 on 08/24/2020, current covid swab test pending. .CT pelvis shows right femur intertrochanteric fracture requiring surgical repair. We are asked to see the pt for perioperative cardiac evaluation. Echo done today EF 60%, EKG SR with T wave changes non-specific, will repeat. Hx of prior L hip surgical repair. No hx of [place] or PCI, hx taken from EMR. Allergies: Coded Allergies: No Known Allergies (Unverified , 08/24/20) Medication History Scheduled Amlodipine Besylate (Norvasc), 5 MG ORAL Q12HR Donepezil Hcl* (Donepezil Hcl*), 10 MG ORAL DAILY, (Reported) Ergocalciferol (Vitamin D2) (Ergocalciferol), 1 GM PO ONCE A WEEK, (Reported) Ferrous Sulfate* (Ferrous Sulfate*), 325 MG ORAL TWICE A DAY, (Reported) Gabapentin* (Gabapentin*), 100 MG ORAL THREE TIMES A DAY, (Reported) Levothyroxine Sodium* (Levoxyl*), 62.5 MCG ORAL ACBREAKFAST, (Reported) Mirtazapine* (Mirtazapine*), 15 MG ORAL BEDTIME Omeprazole (Omeprazole), 40 MG ORAL DAILY, (Reported) Tamsulosin HCl (Flomax), 0.4 MG ORAL HS, (Reported) Miscellaneous Medications Multivitamin (Multivitamin), 1 EACH PO, (Reported) Discontinued Medications Trimethoprim/Sulfamethoxazole 160/800* (Bactrim Ds Tablet*), 1 TAB ORAL DAILY, (Reported) Discontinued Reason: Therapy completed Patient History Limited by: language barrier, medical condition History Provided By: Medical Record Healthcare decision maker Resuscitation status Advanced Directive on File Review of Systems All Other Systems: negative except mentioned in HPI Physical Exam General Appearance: no apparent distress HEENT: PERRL Neck: non-tender, supple Respiratory/Chest: no respiratory distress Cardiovascular/Chest: normal rate, regular rhythm Abdomen: soft Extremities: trace edema Skin Exam: warm/dry Neurologic: motor weakness, disoriented Last 24 Hour Vital Signs Date Time Temp Pulse Resp B/P (MAP) Pulse Ox O2 Delivery O2 Flow Rate FiO2 09/04/20 16:00 97.8 92 18 106/58 (74) 95 09/04/20 12:00 98.3 74 18 105/59 (74) 94 09/04/20 09:00 Room Air 09/04/20 08:23 99 124/89 09/04/20 08:00 98.6 99 18 124/89 (101) 94 09/04/20 04:00 98.1 94 19 107/55 (72) 92 09/04/20 00:00 98.5 85 18 106/54 (71) 93 09/03/20 23:00 96 108/81 09/03/20 23:00 Room Air 09/03/20 22:15 97.8 96 17 108/81 (90) 96 09/03/20 22:08 88 22 96 Room Air 09/03/20 20:44 88 23 Room Air 96 09/03/20 20:41 88 23 105/61 96 Room Air 09/03/20 19:12 98.2 84 18 101/54 (70) 92 Room Air Intake and Output 09/03/20 09/04/20 19:00 07:00 Intake Total 800 ml Balance 800 ml Intake Oral 400 ml IV Total 400 ml # Voids 1 Laboratory Tests Test 09/03/20 19:50 White Blood Count 12.6 K/UL (4.8-10.8) H Red Blood Count 3.25 M/UL (4.20-5.40) L Hemoglobin 9.9 G/DL (12.0-16.0) L Hematocrit 30.4 % (37.0-47.0) L Mean Corpuscular Volume 94 FL (80-99) Mean Corpuscular Hemoglobin 30.5 PG (27.0-31.0) Mean Corpuscular Hemoglobin Concent 32.6 G/DL (32.0-36.0) Red Cell Distribution Width 12.4 % (11.6-14.8) Platelet Count 198 K/UL (150-450) Mean Platelet Volume 7.3 FL (6.5-10.1) Neutrophils (%) (Auto) % (45.0-75.0) Lymphocytes (%) (Auto) % (20.0-45.0) Monocytes (%) (Auto) % (1.0-10.0) Eosinophils (%) (Auto) % (0.0-3.0) Basophils (%) (Auto) % (0.0-2.0) Differential Total Cells Counted 100 Neutrophils % (Manual) 87 % (45-75) H Lymphocytes % (Manual) 10 % (20-45) L Monocytes % (Manual) 3 % (1-10) Eosinophils % (Manual) 0 % (0-3) Basophils % (Manual) 0 % (0-2) Band Neutrophils 0 % (0-8) Platelet Estimate Adequate Platelet Morphology Normal Red Blood Cell Morphology Normal Prothrombin Time 11.2 SEC (9.30-11.50) Prothromb Time International Ratio 1.0 (0.9-1.1) Activated Partial Thromboplast Time 27 SEC (23-33) Sodium Level 138 MMOL/L (136-145) Potassium Level 4.3 MMOL/L (3.5-5.1) Chloride Level 105 MMOL/L (98-107) Carbon Dioxide Level 21 MMOL/L (21-32) Anion Gap 12 mmol/L (5-15) Blood Urea Nitrogen 44 mg/dL (7-18) H Creatinine 2.2 MG/DL (0.55-1.30) H Estimat Glomerular Filtration Rate 21.4 mL/min (>60) Glucose Level 102 MG/DL (74-106) Calcium Level 8.5 MG/DL (8.5-10.1) Total Bilirubin 0.3 MG/DL (0.2-1.0) Aspartate Amino Transf (AST/SGOT) 64 U/L (15-37) H Alanine Aminotransferase (ALT/SGPT) 31 U/L (12-78) Alkaline Phosphatase 125 U/L (46-116) H Total Protein 7.8 G/DL (6.4-8.2) Albumin 3.4 G/DL (3.4-5.0) Globulin 4.4 g/dL Albumin/Globulin Ratio 0.8 (1.0-2.7) L Height (Feet): 5 Height (Inches): 1.00 Weight (Pounds): 100 Medications Current Medications Medications (Trade) Dose Ordered Sig/Demetrice Route PRN Reason Start Time Stop Time Status Last Admin Dose Admin Amlodipine Besylate (Norvasc) 5 mg Q12HR ORAL 09/03/20 23:00 10/03/20 22:59 09/04/20 08:23 Donepezil HCl (Aricept) 10 mg DAILY ORAL 09/04/20 09:00 10/04/20 08:59 09/04/20 08:23 Ferrous Sulfate (Feosol) 325 mg TWICE A DAY ORAL 09/04/20 09:00 12/03/20 08:59 09/04/20 17:28 Gabapentin (Neurontin) 100 mg THREE TIMES A DAY ORAL 09/04/20 09:00 10/04/20 08:59 09/04/20 17:28 Levothyroxine Sodium (Synthroid) 50 mcg BEFORE BREAKFAST ORAL 09/04/20 06:30 10/04/20 06:29 09/04/20 06:54 Mirtazapine (Remeron) 15 mg BEDTIME ORAL 09/04/20 21:00 12/03/20 20:59 Morphine Sulfate (Morphine Sulfate) 2 mg Q6H PRN IVP For Pain 09/03/20 22:45 09/10/20 22:44 Sodium Chloride 1,000 ml @ 50 mls/hr Q20H IV 09/03/20 22:45 10/03/20 22:44 09/04/20 17:28 Tamsulosin HCl (Flomax) 0.4 mg DAILY ORAL 09/04/20 09:00 10/04/20 08:59 09/04/20 08:23 Assessment/Plan Status: stable Assessment/Plan: 1. R hip fracture 09/04 mechanical fall plan for surgical repair 2. HFpEF, chronic diastolic HF with preserved EF 60% compensated, mild diastolic dysfunction 3. Hypertension 4. Dementia 5. Abnormal EKG 6. Frailty Pt unable to tolerate Lexiscan due to acute R hip fracture therefore coronary circulation status remains unknown. Perioperative cardiac risk is low to intermediate given available test results and reasonable need for timely surgical intervention. SBP and HR in normal territory, no signifcant valvular disease, well preserved LV function with normal EF. Medications optimized prior to anesthesia. Anahi Marquez PA-C Sep 04, 2020 17:53
--- NOTE | 2020-09-04 18:08 | Diagnostic Imaging Report ---
Indications: Fall, trauma, pain Technique: Two views of the right femur Comparison: None Findings: There is an intertrochanteric fracture of the right femur. This is comminuted. No distal shaft fracture demonstrated. Bones are osteoporotic. No definite pelvic fracture. The joint spaces are grossly preserved Impression: Right hip intertrochanteric fracture. This is confirmed on a subsequent CT scan. No distal fracture demonstrated
--- NOTE | 2020-09-04 18:09 | Diagnostic Imaging Report ---
Indication: Shortness of breath Technique: One view of the chest Comparison: none Findings: Mild central interstitial prominence and bronchial wall thickening is probably on the basis of senescent changes. No definite acute infiltrates, effusions, or congestion. Surgical hardware is seen in the left numerous. Impression: No acute process
--- NOTE | 2020-09-04 19:16 | NUR ---
NURSE HAND-OFF: Important Events on Shift: Surgery prep, PUI COVID. Patient Status: stable Diet: reg, NPO midnight Pending Orders: n/a Pending Results/Labs: COVID PCR Pending MD notification: n/a Latest Vital Signs: Temperature 97.8 , Pulse 92 , B/P 106 /58 , Respiratory Rate 18 , O2 SAT 95 Vital Sign Comment: VS stable Latest Quiroz Fall Score: 95 Fall Risk: High Risk Safety Measures: Call light Within Reach, Bed Alarm Zone 2, Side Rails Side Rails x3, Bed position Low and Locked. Fall Precautions: Patient Fall Education Report given to Marques BARKLEY.
--- NOTE | 2020-09-04 19:30 | NUR ---
NURSE NOTES: Received patient in no apparent distress. A&OX3. IV site patent and intact. Remind patient NPO midnight. Bed in lowest position. Call light within reach. Will continue to monitor.
[2020-09-04 20:00] VITALS: BP 117/58
[2020-09-05] VITALS (13 sets, daily range): BP systolic 103–122; BP diastolic 53–61
--- NOTE | 2020-09-05 02:25 | Cardiology Report ---
APPROVED REPORT EXAM: Two-dimensional and M-mode echocardiogram with Doppler and color Doppler. INDICATION PRE-OP M-Mode DIMENSIONS IVSd1.0 (0.7-1.1cm)Left Atrium (MM)3.0 (1.6-4.0cm) LVDd4.4 (3.5-5.6cm)Aortic Root3.4 (2.0-3.7cm) PWd0.7 (0.7-1.1cm)Aortic Cusp Exc.1.7 (1.5-2.0cm) IVSs1.1 cm LVDs3.1 (2.5-4.0cm) PWs1.1 cm <Conclusion> Normal left ventricular chamber size, systolic function and wall motion. Left ventricular ejection fraction estimated to be 60%. No evidence of ventricular hypertrophy. No evidence of pericardial effusion. All other cardiac chamber sizes are within normal limits. Calcification of aortic valve with adequate cusp excursion. Moderate thickened mitral valve leaflets with normal excursion. Mitral annulus and aortic root calcification. Pulmonic valve not well visualized. Normal tricuspid valve structure. IVC at normal size with <50% physiologic collapse. A color flow and spectral Doppler study was performed and revealed: No aortic regurgitation. Trace mitral regurgitation. Mitral diastolic velocities suggest reduced left ventricular relaxation c/w mild diastolic dysfunction (Grade I). Mild tricuspid regurgitation. Tricuspid systolic velocities suggests peak right ventricular systolic pressure of 34 mmHg.
[2020-09-05] MEDS ORDERED: Sodium Chloride 10ml vial INJ ONE (06:27)
[2020-09-05] MEDS ORDERED: HYDROcodone/Acetamin 5/325 tab ORAL PRN (06:30)
[2020-09-05] MEDS ORDERED: Ketorolac 30mg Inj IV PRN ×2 (06:30)
[2020-09-05] MEDS ORDERED: Midazolam 2mg/2ml Inj IVP PRN (06:30)
[2020-09-05] MEDS ORDERED: Meperidine 25mg/1ml Inj (FOR RIGORS ONLY) IV PRN (06:30)
[2020-09-05] MEDS ORDERED: Metoclopramide 10mg/2ml Inj IVP PRN (06:30)
[2020-09-05] MEDS ORDERED: LR 1000ml 1,000 ML IVLG SCH (06:30)
[2020-09-05] MEDS ORDERED: Hydromorphone 0.5mg/0.5ml inj IVP PRN (06:30)
[2020-09-05] MEDS ORDERED: Atropine Sulfate 0.4mg/ml inj IVP PRN (06:30)
[2020-09-05] MEDS ORDERED: oxyCODONE HCL/Acetaminophen 5/325mg ORAL PRN (06:30)
[2020-09-05] MEDS ORDERED: fentaNYL 100 mcg/2 mL IV PRN (06:30)
[2020-09-05] MEDS ORDERED: DiphenhydrAMINE 50mg/ml Inj IVP PRN (06:30)
[2020-09-05] MEDS ORDERED: Labetalol 5mg/ml 20ml vial IV PRN (06:30)
[2020-09-05] MEDS ORDERED: LORazepam Inj 2mg/ml 1ml IV PRN (06:30)
[2020-09-05] MEDS ORDERED: HYDROcodone/Acetamin 7.5/325 tab ORAL PRN (06:30)
--- NOTE | 2020-09-05 06:39 | Immediate Post-Op Evaluation ---
Immediate Post-Op Evalulation Immediate Post-Op Evalulation Procedure: r Hip ORIF Date of Evaluation: Sep 05, 2020 Blood Products: 0 Pain Score (1-10): 1 Nausea: No Vomiting: No Complications 0 Patient Status: awake, reacts, patent, none Hydration Status: adequate Dru Gram Ancef IV Given Within 1 Hr of Incision: Yes Dada Wong MD Sep 05, 2020 06:39
--- NOTE | 2020-09-05 06:40 | 48 Hour Post Anesthesia Eval ---
Post Anesthesia Evaluation Procedure: r Hip ORIF Date of Evaluation: Sep 05, 2020 Airway: patent Nausea: No Vomiting: No Pain Intensity: 1 Hydration Status: adequate Cardiopulmonary Status: Stable Mental Status/LOC: patient returned to baseline Follow-up Care/Observations: 0 Post-Anesthesia Complications: 0 Follow-up care needed: N/A Dada Wong MD Sep 05, 2020 06:40
[2020-09-05] MEDS ORDERED: EPINEPHrine 1mg/1ml Amp ONE (06:46)
[2020-09-05] MEDS ORDERED: cloNIDine 1000mcg/10ml inj ONE (06:46)
[2020-09-05] MEDS ORDERED: Bupivacaine 0.5% Inj 30 ml vial INJ ONE (06:46)
[2020-09-05 07:25] LABS: BASOPHILS % (AUTO) 1.4 % (0.0-2.0); EOSINOPHILS % (AUTO) 0.7 % (0.0-3.0); HEMATOCRIT 27.4 % (37.0-47.0); LYMPHOCYTES % (AUTO) 11.6 % (20.0-45.0); MEAN CORPUSCULAR VOLUME 96 FL (80-99); MONOCYTES % (AUTO) 4.8 % (1.0-10.0); NEUTROPHILS % (AUTO) 81.5 % (45.0-75.0); PLATELET COUNT 176 K/UL (150-450); RED BLOOD COUNT 2.86 M/UL (4.20-5.40); RED CELL DISTRIBUTION WIDTH 12.8 % (11.6-14.8); WHITE BLOOD COUNT 8.6 K/UL (4.8-10.8)
--- NOTE | 2020-09-05 07:30 | NUR ---
NURSE NOTES: RN received report from Marques Harris and patient in bed. Patient is fatigued, aao X3, does not show s/s of respiratory distress or pain. Will continue to monitor. Addendum: 09/05/20 at 1340 by Kirby Mukherjee RN Bed in lowest position, locked and bed alarm on. Call light within reach.
[2020-09-05 07:39] LABS: CALCIUM 7.9 MG/DL (8.5-10.1); CREATININE 1.5 MG/DL (0.55-1.30); PHOSPHORUS 2.6 MG/DL (2.5-4.9); POTASSIUM 4.4 MMOL/L (3.5-5.1)
--- NOTE | 2020-09-05 08:02 | NUR ---
NURSE HAND-OFF: Important Events on Shift: Kept NPO midnight Patient Status: Diet: NPO Pending Orders: Pending Results/Labs: Pending MD notification: Latest Vital Signs: Temperature 98.7 , Pulse 89 , B/P 105 /61 , Respiratory Rate 16 , O2 SAT 96 , Room Air, O2 Flow Rate . Vital Sign Comment: Latest Quiroz Fall Score: 95 Fall Risk: High Risk Safety Measures: Call light Within Reach, Bed Alarm Zone 2, Side Rails Side Rails x3, Bed position Low and Locked. Fall Precautions: Door Sign Patient Fall Education Report given to Kirby BARKLEY.
--- NOTE | 2020-09-05 08:33 | NUR ---
CASE MANAGEMENT:REVIEW 09/05/20 SI: RT HIP FRACTURE 97.9 88 18 112/55 93% ON RA H/H-9.0/27.4 BUN+33 CR+1.5 CA-7.9 BNP+2254 IS: TO SURGERY FOR RT HIP ORIF : WILL GO TO MED/SURG POST OP DCP: FROM ISHAN CARMEN
[2020-09-05] MEDS: Tamsulosin 0.4mg cap ORAL SCH ×2 (09:00→09:06)
[2020-09-05] MEDS: Donepezil 10mg tab ORAL SCH ×2 (09:00→09:06)
--- NOTE | 2020-09-05 09:23 | Nephrology Progress Note ---
Assessment/Plan Plan #SOILA - pre-renal azotemia #HTN #right femur fracture #dementia #Hypothyroidism - IVF - pain control - ortho eval - plan for surgery today - flomax - monitor BP - levothyroxine time spent 65min Subjective ROS Limited/Unobtainable: No HEENT: Denies: no symptoms, eye pain, blurred vision, tearing, double vision, ear pain, ear discharge, nose pain, nose congestion, throat pain, throat swelling, mouth pain, mouth swelling, other Genitourinary: Denies: no symptoms, burning, discharge, frequency, flank pain, hematuria, incontinence, pain, urgency, other Neurologic/Psychiatric: Denies: no symptoms, anxiety, depressed, emotional problems, headache, numbness, paresthesia, pre-existing deficit, seizure, tingling, tremors, weakness, other Subjective evaluated by ortho today plan for surgery today Objective Objective Last 24 Hour Vital Signs Date Time Temp Pulse Resp B/P (MAP) Pulse Ox O2 Delivery O2 Flow Rate FiO2 09/05/20 08:00 97.9 88 18 112/55 (74) 93 09/05/20 04:00 98.7 89 16 105/61 (76) 96 09/05/20 00:00 98.8 92 18 108/59 (75) 96 09/04/20 21:14 87 117/58 09/04/20 21:00 Room Air 09/04/20 20:00 98.1 87 16 117/58 (77) 95 09/04/20 16:00 97.8 92 18 106/58 (74) 95 09/04/20 12:00 98.3 74 18 105/59 (74) 94 Intake and Output 09/04/20 09/05/20 19:00 07:00 Intake Total 1030 ml 600 ml Balance 1030 ml 600 ml Intake Oral 480 ml IV Total 550 ml 600 ml # Voids 2 2 Laboratory Tests 09/05/20 06:29: White Blood Count 8.6, Red Blood Count 2.86L, Hemoglobin 9.0L, Hematocrit 27.4L, Mean Corpuscular Volume 96, Mean Corpuscular Hemoglobin 31.3H, Mean Corpuscular Hemoglobin Concent 32.7, Red Cell Distribution Width 12.8, Platelet Count 176, Mean Platelet Volume 7.1, Neutrophils (%) (Auto) 81.5H, Lymphocytes (%) (Auto) 11.6L, Monocytes (%) (Auto) 4.8, Eosinophils (%) (Auto) 0.7, Basophils (%) (Auto) 1.4, Sodium Level 139, Potassium Level 4.4, Chloride Level 109H, Carbon Dioxide Level 20L, Anion Gap 10, Blood Urea Nitrogen 33H, Creatinine 1.5H, Estimat Glomerular Filtration Rate 33.3, Glucose Level 85, Calcium Level 7.9L, Phosphorus Level 2.6, Magnesium Level 2.8H, Troponin I 0.000, Pro-B-Type Natriuretic Peptide 2254H Height (Feet): 5 Height (Inches): 1.00 Weight (Pounds): 92 Objective General Appearance: no apparent distress, alert Lines, tubes and drains: peripheral HEENT: normocephalic, atraumatic Neck: non-tender Respiratory/Chest: chest wall non-tender, lungs clear, normal breath sounds Cardiovascular/Chest: normal peripheral pulses, normal rate, regular rhythm Abdomen: normal bowel sounds, non tender, soft Neurologic: alert, oriented x 3 Musculoskeletal: other - R hip pain Roz Mancilla M.D. Sep 05, 2020 09:23
--- NOTE | 2020-09-05 10:31 | Cardiology Progress Note ---
Assessment/Plan Status: stable Assessment/Plan 1. R hip fracture 2/2 mechanical fall plan for surgical repair 2. HFpEF, chronic diastolic HF with preserved EF 60% BNP elevated this morning 2253, diastolic dysfunction 3. Hypertension 4. Dementia 5. Abnormal EKG 6. Frailty Pt fatigued this morning, O2 sat 93%. New BNP result 2253, will diurese with IV Lasix. Subjective ROS Limited/Unobtainable: No Cardiovascular: Reports: no symptoms Respiratory: Reports: no symptoms; Denies: SOB with excertion Gastrointestinal/Abdominal: Reports: poor appetite Subjective Speaking quietly today, appears fatigued. BNP 4 this morning. O2 sat 93% on room air Objective Last 24 Hour Vital Signs Date Time Temp Pulse Resp B/P (MAP) Pulse Ox O2 Delivery O2 Flow Rate FiO2 09/05/20 08:00 97.9 88 18 112/55 (74) 93 09/05/20 04:00 98.7 89 16 105/61 (76) 96 09/05/20 00:00 98.8 92 18 108/59 (75) 96 09/04/20 21:14 87 117/58 09/04/20 21:00 Room Air 09/04/20 20:00 98.1 87 16 117/58 (77) 95 09/04/20 16:00 97.8 92 18 106/58 (74) 95 09/04/20 12:00 98.3 74 18 105/59 (74) 94 General Appearance: lethargic EENT: PERRL/EOMI Neck: no JVD Rhythm: NSR Cardiovascular: normal rate, regular rhythm Respiratory/Chest: no respiratory distress, no accessory muscle use Abdomen: soft Extremities: trace edema Neurologic: disoriented Intake and Output 09/04/20 09/05/20 19:00 07:00 Intake Total 1030 ml 600 ml Balance 1030 ml 600 ml Intake Oral 480 ml IV Total 550 ml 600 ml # Voids 2 2 Laboratory Tests Test 09/05/20 06:29 White Blood Count 8.6 K/UL (4.8-10.8) Red Blood Count 2.86 M/UL (4.20-5.40) L Hemoglobin 9.0 G/DL (12.0-16.0) L Hematocrit 27.4 % (37.0-47.0) L Mean Corpuscular Volume 96 FL (80-99) Mean Corpuscular Hemoglobin 31.3 PG (27.0-31.0) H Mean Corpuscular Hemoglobin Concent 32.7 G/DL (32.0-36.0) Red Cell Distribution Width 12.8 % (11.6-14.8) Platelet Count 176 K/UL (150-450) Mean Platelet Volume 7.1 FL (6.5-10.1) Neutrophils (%) (Auto) 81.5 % (45.0-75.0) H Lymphocytes (%) (Auto) 11.6 % (20.0-45.0) L Monocytes (%) (Auto) 4.8 % (1.0-10.0) Eosinophils (%) (Auto) 0.7 % (0.0-3.0) Basophils (%) (Auto) 1.4 % (0.0-2.0) Sodium Level 139 MMOL/L (136-145) Potassium Level 4.4 MMOL/L (3.5-5.1) Chloride Level 109 MMOL/L (98-107) H Carbon Dioxide Level 20 MMOL/L (21-32) L Anion Gap 10 mmol/L (5-15) Blood Urea Nitrogen 33 mg/dL (7-18) H Creatinine 1.5 MG/DL (0.55-1.30) H Estimat Glomerular Filtration Rate 33.3 mL/min (>60) Glucose Level 85 MG/DL (74-106) Calcium Level 7.9 MG/DL (8.5-10.1) L Phosphorus Level 2.6 MG/DL (2.5-4.9) Magnesium Level 2.8 MG/DL (1.8-2.4) H Troponin I 0.000 ng/mL (0.000-0.056) Pro-B-Type Natriuretic Peptide 2254 pg/mL (0-125) H Anahi Marquez PA-C Sep 05, 2020 10:31
[2020-09-05] MEDS ORDERED: Dextrose 5%/Lactated Ringer's 1,000 ML IV SCH (11:00)
--- NOTE | 2020-09-05 11:30 | NUR ---
NURSE NOTES: RN made Dr. Mancilla and SONJA Christian aware of patient's weak conditions. RN received order to give Lasix and D5W LR. RN verified and carried out the order one by one.
--- NOTE | 2020-09-05 11:39 | NUR ---
RD ASSESSMENT & RECOMMENDATIONS SEE CARE ACTIVITY FOR COMPLETE ASSESSMENT DAILY ESTIMATED NEEDS: Needs based on Underweight/ 41.7kg 30-35 kcals/kg 1074-4949 total kcals 1-1.5 g protein/kg 42-63 g total protein 25-30 mL/kg 8457-8055 total fluid mLs NUTRITION DIAGNOSIS: Increased kcal/prot needs R/T underweight status as evidenced by pt @ 92% IBW w/ BMI of 18.0, low BMI per guidelines CURRENT DIET:Regular, pureed moist -> NPO for procedure PO DIET RECOMMENDATIONS: REGULAR/ texture per SENIOR PROCUREMENT SPECIALIST ADDITIONAL RECOMMENDATIONS: * Calibrated bedscale wt * Ensure Enlive TID w/ meals (350kcal/20g prot each) * Rec SENIOR PROCUREMENT SPECIALIST eval for appropriate texture * Check Vit D25 level: s/p fx, elderly * MVI x 1 * Monitor PO tolerance and acceptance .
--- NOTE | 2020-09-05 12:03 | NUR ---
[employer]URANCE [employer]ICALS/REVIEW faxed to Lexi gómez#[phone] fax# [phone]
--- NOTE | 2020-09-05 12:26 | CDS Physician Query ---
Clarification is required for compliance, coding accuracy, and to reflect severity of illness for this patient Dear Dr. Hayden Fernandes, Mr. Duarte Carrasquillo Date: 09/05/2020 Psychological Tests Sales Agent/CDS Name: Arin Zee Clinical Documentation states: HNP - 80-year-old female from [facility] with past medical history of hypertension, and dementia, who presents after a mechanical fall. X-ray of hip revealed a right femur fracture. On arrival patient presented with right hip pain with shortening of the right leg Cardiology progress note: Frailty...poor appetite BMI 17.4 Please select the most appropriate option: [] Protein/Calorie Malnutrition [] Mild [] Moderate [] Severe [] Hypoalbuminemia [] Cachexia [] Underweight [] Intestinal malabsorption [] Other [] Unable to determine [] Not Applicable Present on Admission: [] Yes [] No [] Clinically Undetermined Physician signature Date Please also document in your Progress Notes and/or Discharge Summary and indicate if the condition was present on admission. CARLINED
--- NOTE | 2020-09-05 12:58 | Pulmonology Progress Note ---
Subjective ROS Limited/Unobtainable: Yes Interval Events: pt did not sleep at all overnight per nursing Constitutional: Reports: no symptoms HEENT: Repors: no symptoms Respiratory: Reports: no symptoms Cardiovascular: Reports: no symptoms Gastrointestinal/Abdominal: Reports: no symptoms Allergies: Coded Allergies: No Known Allergies (Unverified , 08/24/20) Objective Last 24 Hour Vital Signs Date Time Temp Pulse Resp B/P (MAP) Pulse Ox O2 Delivery O2 Flow Rate FiO2 09/05/20 08:00 97.9 88 18 112/55 (74) 93 09/05/20 04:00 98.7 89 16 105/61 (76) 96 09/05/20 00:00 98.8 92 18 108/59 (75) 96 09/04/20 21:14 87 117/58 09/04/20 21:00 Room Air 09/04/20 20:00 98.1 87 16 117/58 (77) 95 09/04/20 16:00 97.8 92 18 106/58 (74) 95 Intake and Output 09/04/20 09/05/20 19:00 07:00 Intake Total 1030 ml 600 ml Balance 1030 ml 600 ml Intake Oral 480 ml IV Total 550 ml 600 ml # Voids 2 2 General Appearance: no acute distress Respiratory: lungs clear Cardiovascular: normal rate, regular rhythm Abdomen: soft, non tender Laboratory Tests 09/05/20 06:29: White Blood Count 8.6, Red Blood Count 2.86L, Hemoglobin 9.0L, Hematocrit 27.4L, Mean Corpuscular Volume 96, Mean Corpuscular Hemoglobin 31.3H, Mean Corpuscular Hemoglobin Concent 32.7, Red Cell Distribution Width 12.8, Platelet Count 176, Mean Platelet Volume 7.1, Neutrophils (%) (Auto) 81.5H, Lymphocytes (%) (Auto) 11.6L, Monocytes (%) (Auto) 4.8, Eosinophils (%) (Auto) 0.7, Basophils (%) (Auto) 1.4, Sodium Level 139, Potassium Level 4.4, Chloride Level 109H, Carbon Dioxide Level 20L, Anion Gap 10, Blood Urea Nitrogen 33H, Creatinine 1.5H, Estimat Glomerular Filtration Rate 33.3, Glucose Level 85, Calcium Level 7.9L, Phosphorus Level 2.6, Magnesium Level 2.8H, Troponin I 0.000, Pro-B-Type Natriuretic Peptide 2254H Current Medications Medications (Trade) Dose Ordered Sig/Demetrice Route PRN Reason Start Time Stop Time Status Last Admin Dose Admin Acetaminophen/ Hydrocodone Bitart ([place] 5/325) 1 tab Q1H PRN ORAL Mild Pain (Pain Scale 1-3) 09/05/20 06:30 09/05/20 14:00 Acetaminophen/ Hydrocodone Bitart ([place] 7.5/325) 1 tab Q1H PRN ORAL Moderate Pain (Pain Scale 4-6) 09/05/20 06:30 09/05/20 14:00 Al Hydroxide/Mg Hydroxide (Mylanta) 15 ml Q1H PRN ORAL gi upset 09/05/20 06:30 09/05/20 14:00 Atropine Sulfate (Atropine 0.4mg/ ml) 0.5 mg Q5M PRN IVP HR<40 09/05/20 06:30 09/05/20 14:00 Dextrose/Lactated Ringer's 1,000 ml @ 75 mls/hr [id number] IV 09/05/20 11:00 10/05/20 10:59 09/05/20 11:03 Diphenhydramine HCl (Benadryl) 25 mg Q15M PRN IVP Itching 09/05/20 06:30 09/05/20 14:00 Donepezil HCl (Aricept) 10 mg DAILY ORAL 09/04/20 09:00 10/04/20 08:59 09/04/20 08:23 Fentanyl Citrate (Sublimaze 100 mcg/2 mL) 25 mcg Q10M PRN IV Moderate Pain (Pain Scale 4-6) 09/05/20 06:30 09/05/20 14:00 Ferrous Sulfate (Feosol) 325 mg TWICE A DAY ORAL 09/04/20 09:00 12/03/20 08:59 09/04/20 17:28 Furosemide (Lasix) 20 mg ONCE IV 09/05/20 10:45 09/05/20 15:00 09/05/20 11:03 Gabapentin (Neurontin) 100 mg THREE TIMES A DAY ORAL 09/04/20 09:00 10/04/20 08:59 09/04/20 17:28 Hydralazine HCl (Apresoline) 5 mg Q30M PRN IV SBP>160 / DBP>90 09/05/20 06:30 09/05/20 14:00 Hydromorphone HCl (Dilaudid) 0.5 mg Q15M PRN IVP Severe Pain (Pain Scale 7-10) 09/05/20 06:30 09/05/20 14:00 Ketorolac Tromethamine (Toradol 30mg) 15 mg Q1H PRN IV Moderate Breakthru Pain (5-7) 09/05/20 06:30 09/05/20 14:00 Ketorolac Tromethamine (Toradol 30mg) 30 mg Q1H PRN IV Severe Breakthru Pain (>7) 09/05/20 06:30 09/05/20 14:00 Labetalol HCl (Normodyne) 5 mg Q10M PRN IV SBP>160 / DBP>90 09/05/20 06:30 09/05/20 14:00 Levothyroxine Sodium (Synthroid) 50 mcg BEFORE BREAKFAST ORAL 09/04/20 06:30 10/04/20 06:29 09/04/20 06:54 Lorazepam (Ativan 2mg/ml 1ml) 1 mg Q15M PRN IV For Anxiety 09/05/20 06:30 09/05/20 14:00 Meperidine HCl (Demerol) 25 mg Q5M PRN IV SHIVERING.MAY REPEAT X 1 09/05/20 06:30 09/05/20 14:00 Metoclopramide HCl (Reglan) 10 mg Q1H PRN IVP Nausea & Vomiting 09/05/20 06:30 09/05/20 14:00 Midazolam HCl (Versed 2mg/2ml vial) 1 mg Q15M PRN IVP For Anxiety 09/05/20 06:30 09/05/20 14:00 Mirtazapine (Remeron) 15 mg BEDTIME ORAL 09/04/20 21:00 12/03/20 20:59 09/04/20 21:15 Morphine Sulfate (Morphine Sulfate) 2 mg Q6H PRN IVP For Pain 09/03/20 22:45 09/10/20 22:44 Oxycodone/ Acetaminophen (Percocet 5-325) 1 tab Q1H PRN ORAL Severe Pain (Pain Scale 7-10) 09/05/20 06:30 09/05/20 14:00 Tamsulosin HCl (Flomax) 0.4 mg DAILY ORAL 09/04/20 09:00 10/04/20 08:59 09/04/20 08:23 Assessment/Plan Assessment/Plan 1. Right hip fracture -"Perioperative cardiac risk is low to intermediate given available test results" per cardio -N.p.o. at midnight for surgery tomorrow - Surgery today - pt condition discussed with nurse and orthopedic MD - pt appears more sleepy today; able to answer her name and pulls away from pain stimulus 2. Hypertension -We will continue home antihypertensives 3. SOILA - IVF 4. Malnutrition - Will get ST eval after surgery - Pt missing several teeth The care for this patient was discussed with my supervising physician. Time spent for this case was approximately 31 minutes Duarte Carrasquillo Sep 05, 2020 12:58
--- NOTE | 2020-09-05 13:00 | NUR ---
NURSE NOTES: RN made SONJA Carrasquillo aware of patient's weak status. Patient still aaoX3. Will continue to monitor.
[2020-09-05] MEDS ORDERED: Bacitracin 50000 Units Vial ONE (13:09)
[2020-09-05] MEDS ORDERED: NeoSporin Gu Irrig 1ml Amp IRRIG ONE (13:09)
[2020-09-05] MEDS ORDERED: NS Irrig 1000ml IRRIG ONE (13:13)
[2020-09-05] MEDS ORDERED: fentaNYL 100 mcg/2 mL IV ONE (13:19)
[2020-09-05] MEDS ORDERED: Lidocaine 1% MPF 10mg/ml 5ml ONE (13:19)
[2020-09-05] MEDS ORDERED: Duramorph PF 10mg/10ml amp ONE (13:20)
[2020-09-05] MEDS ORDERED: Sterile Water Irrig 1000ml IRRIG ONE (13:30)
[2020-09-05] MEDS ORDERED: LR 1000ml ONE (13:30)
[2020-09-05] MEDS ORDERED: NS Irrig 1000ml ONE (13:30)
[2020-09-05] MEDS ORDERED: Phenylephrine 10mg/ml Vial ONE (13:30)
[2020-09-05] MEDS ORDERED: ePHEDrine 50mg/ml Inj ONE (13:30)
--- NOTE | 2020-09-05 13:30 | NUR ---
NURSE NOTES: Patient is being transported to Surgery on a gurney by a transporter. IV access present, asymptomatic on the RW. Patient's vitals are stable, aaoX3. Patient does not show s/s of respiratory distress on room air or pain. ID band is on the left wrist. No dentures, jewelry or underwear on the present.
--- NOTE | 2020-09-05 13:35 | Pre-Procedure Note/Attestation ---
Pre-Procedure Note/Attestation Complete Prior to Procedure Planned Procedure: right Procedure Narrative: hip orif Indications for Procedure Pre-Operative Diagnosis: right hip fracture Attestation I attest that I discussed the nature of the procedure; its benefits; risks and complications; and alternatives (and the risks and benefits of such alternatives), prior to the procedure, with the patient (or the patient's legal veterans service representative). I attest that, if there was a reasonable possibility of needing a blood transf usion, the patient (or the patient's legal veterans service representative) was given the [facility] standardized written summary, pursuant to the [place]z Roger Blood Safety Act ([place] Health and Safety Code # 1645, as amended). I attest that I re-evaluated the patient just prior to the surgery and that there has been no change in the patient's H&P, except as documented below: Samm Wang MD Sep 05, 2020 13:35
--- NOTE | 2020-09-05 13:35 | Operative Note - PDOC ---
Operative Note Operative Note Pre-op Diagnosis: right hip fracture Procedure: see op report Post-op Diagnosis: same as pre-op plus Operative Findings: consistent w/pre-op dx studies Anesthesia: regional Specimen: none Complications: none Condition: stable Estimated Blood Loss: none Implant(s) used?: Yes Samm Wang MD Sep 05, 2020 13:35
--- NOTE | 2020-09-05 14:50 | Immediate Post-Op Evaluation ---
Immediate Post-Op Evalulation Immediate Post-Op Evalulation Procedure: r Hip ORIF Date of Evaluation: Sep 05, 2020 Time of Evaluation: 14:50 IV Fluids: 500 Estimated Blood Loss: 5 Blood Pressure Systolic: 104 Blood Pressure Diastolic: 55 Pulse Rate: 65 Respiratory Rate: 14 O2 Sat by Pulse Oximetry: 100 Temperature (Fahrenheit): 97.5 Nausea: No Vomiting: No Complications none Patient Status: reacts, patent Hydration Status: adequate Drug: ancef Given Within 1 Hr of Incision: Yes Time Given: 13:45 Traci Nogueira CRNA Sep 05, 2020 14:50
--- NOTE | 2020-09-05 15:37 | 48 Hour Post Anesthesia Eval ---
Post Anesthesia Evaluation Procedure: r Hip ORIF Date of Evaluation: Sep 05, 2020 Time of Evaluation: 15:37 Blood Pressure Systolic: 109 0: 55 Pulse Rate: 51 Respiratory Rate: 14 Airway: patent Nausea: No Vomiting: No Pain Intensity: 0 Hydration Status: adequate Cardiopulmonary Status: stable Mental Status/LOC: patient returned to baseline Post-Anesthesia Complications: none Follow-up care needed: N/A Traci Nogueira CRNA Sep 05, 2020 15:37
--- NOTE | 2020-09-05 15:44 | Operative Note - Dictated ---
DATE OF OPERATION: 09/05/2020 PREOPERATIVE DIAGNOSIS: Right intertrochanteric two-part fracture. POSTOPERATIVE DIAGNOSIS: Right intertrochanteric two-part fracture. PROCEDURE: Open reduction and internal fixation right intertrochanteric hip fracture with intramedullary device. SURGEON: Samm Wang MD. ANESTHESIA: Spinal. INDICATION FOR PROCEDURE: This an 80-year-old female who sustained a mechanical fall. She was diagnosed with two-part intertrochanteric fracture indicative of operative fixation. Risks, limitations, expectations, and complications related to surgery were discussed in all detail with her son, . DESCRIPTION OF PROCEDURE: After informed consent was obtained, the patient was brought into operating room and placed under spinal anesthesia. Right hip was prepped and draped in a standard sterile manner. Reduction of the fracture under fluoroscopy was performed. Right hip was prepped and draped in a sterile manner. Time-out was performed. Ancef was administered. A lateral skin incision was then made. Guidewire was placed in the proximal aspect of the femur. Opening reamer was then placed on with a short gamma nail. A 85 mm cannulated screw was then placed to the neck-head junction along with a 35 mm distal locking screw. Once that was done, the instruments were removed. Portal sites closed with 3-0 Monocryl sutures. Steri-Strips and a sterile dressing were applied. ESTIMATED BLOOD LOSS: None. COMPLICATIONS: None. SPECIMENS: None. IMPLANTS: Include short gamma nail, 85 mm cannulated screw, and distal locking screw. Samm Wang M.D. DR: Paulette JOB#: [id number] CC:
--- NOTE | 2020-09-05 15:52 | Diagnostic Imaging Report ---
INDICATION: Pain, intraoperative TECHNIQUE: Intraoperative imaging Fluoroscopy time: 39.8 seconds Total dose: 0.49872 mGym2 Total number of images: 3 COMPARISON: Femur radiograph 09/03/2020 FINDINGS: Intraoperative images document surgical repair of previously reported right hip intertrochanteric fracture using medullary janki and compression screw IMPRESSION: Intraoperative imaging, as described
--- NOTE | 2020-09-05 15:53 | NUR ---
*-*DISCHARGE PLANNING*-* PATIENT HAS BEEN REFERRED TO: [facility] P: [phone] PLACED MULTIPLE CALLS, NO ANSWER.
--- NOTE | 2020-09-05 15:55 | NUR ---
CAFETERIA MONITOR NOTE SW spoke w/ Tran from [facility] and discussed the fall incident. Per Tran, pt can ambulate w/ assistance or use a walker only about 10 feet. However, pt often attempts to walk without assistance and the unwitnessed fall happened prior to hospitalization. SW will discuss the importance of using DME and follow the staff instruction w/ pt when her post surgery is stable.
--- NOTE | 2020-09-05 16:10 | NUR ---
NURSE NOTES: RN received report from Stuart, patient on a gurney from recovery nurse Stuart and Aaron. Patient is aaoX3, verbally responsive to voice. Patient does not show s/s of respiratory distress on 3 L of NC, no pain noted. Dressing intact and dry on all three places on the right hip. Can move all her extremities and sensations intact. Vitals: T 97.7 axillary; BP:122/58; Pulse: 86; O2:98%; RR: 16. Will continue to monitor
[2020-09-05] MEDS: D5 1/2NS w/KCl 20mEq 1,000 ML IV SCH (16:33)
--- NOTE | 2020-09-05 16:40 | NUR ---
FAMILY WORKER NOTE Pt closed her eyes and resting. SW will meet w/ pt on the next day.
--- NOTE | 2020-09-05 17:29 | Consultation ---
DATE OF CONSULTATION: 09/04/2020 CHIEF COMPLAINT: Right hip pain. HISTORY OF PRESENT ILLNESS: The patient is an 80-year-old female who [place] the [place] when she sustained a fall. She was brought to the emergency room. She was diagnosed with right intertrochanteric hip fracture. Orthopedic consultation was obtained for further care and recommendation. PAST MEDICAL HISTORY: Per intake chart. PAST SURGICAL HISTORY: Per intake chart. MEDICATIONS: Per intake chart. PHYSICAL EXAMINATION: GENERAL: The patient is pretty lethargic. EXTREMITIES: She has pain with internal and external rotation of the right hip. Posterior calf is soft. Neurovascular is normal. IMAGING STUDIES: Two-part intertrochanteric hip fracture with type C femur. ASSESSMENT: 1. Right intertrochanteric hip fracture. 2. Osteoporosis. DISCUSSION: At this point, what I recommend is to proceed with open reduction and internal fixation. Risks, limitations, expectations, complication of the procedure were discussed in detail with her son, Pancho. We left a voicemail but will try to recontact him again to consent for the surgery. We will medically optimize her today in anticipation of surgery tomorrow. Samm Wang M.D. DR: Paulette JOB#: [id number] CC:
--- NOTE | 2020-09-05 19:45 | NUR ---
NURSE HAND-OFF: Important Events on Shift:patient frail, post op interventions Patient Status: weak Diet: liquid to regular as tolerated Pending Orders: Pending Results/Labs: Pending MD notification: Latest Vital Signs: Temperature 97.7 , Pulse 86 , B/P 122 /58 , Respiratory Rate 16 , O2 SAT 98 , Nasal Cannula, O2 Flow Rate 3 . Vital Sign Comment: stable Latest Quiroz Fall Score: 95 Fall Risk: High Risk Safety Measures: Call light Within Reach, Bed Alarm Zone 2, Side Rails Side Rails x3, Bed position Low and Locked. Fall Precautions: Door Sign Patient Fall Education Report given to FILIPPO Mohan.
--- NOTE | 2020-09-05 19:45 | NUR ---
NURSE NOTES: Received patient in no apparent distress. A&OX3. NC 3L on. IV sites are patent and intact. Surgical dressing noted on right hip, dry and intact. Bed in lowest position. Call light within reach. Will continue to monitor.
--- NOTE | 2020-09-05 23:14 | NUR ---
NURSE NOTES: Notified Dr. Fernandes regarding negative COVID result. No new order at this time.
[2020-09-06] VITALS: BP 111/57
[2020-09-06 04:00] VITALS: BP 115/64
[2020-09-06] MEDS: D5 1/2NS w/KCl 20mEq 1,000 ML IV SCH (04:01)
[2020-09-06 07:09] LABS: CALCIUM 7.9 MG/DL (8.5-10.1); CREATININE 1.2 MG/DL (0.55-1.30); POTASSIUM 4.4 MMOL/L (3.5-5.1)
[2020-09-06 07:12] LABS: EOSINOPHILS % (AUTO) 0.8 % (0.0-3.0); HEMATOCRIT 26.5 % (37.0-47.0); HEMOGLOBIN 8.6 G/DL (12.0-16.0); LYMPHOCYTES % (AUTO) 15.5 % (20.0-45.0); MEAN CORPUSCULAR VOLUME 97 FL (80-99); MONOCYTES % (AUTO) 6.6 % (1.0-10.0); NEUTROPHILS % (AUTO) 76.2 % (45.0-75.0); PLATELET COUNT 178 K/UL (150-450); RED BLOOD COUNT 2.74 M/UL (4.20-5.40); RED CELL DISTRIBUTION WIDTH 13.1 % (11.6-14.8); WHITE BLOOD COUNT 6.8 K/UL (4.8-10.8)
--- NOTE | 2020-09-06 07:35 | NUR ---
NURSE NOTES: Received report from FILIPPO Mohan. Rounding done with outgoing nurse. Pt a/o x 3, having breakfast. No SOB noted. Denies any pain at this time. Right hip surgical site dressing is dry/intact. D51/2NS + KCl 20meq running @75ml/hr. Bed in lowest position, call light within reach. Will continue to monitor.
--- NOTE | 2020-09-06 07:52 | NUR ---
NURSE HAND-OFF: Important Events on Shift: Patient Status: Diet: regular Pending Orders: Pending Results/Labs: Pending MD notification: Latest Vital Signs: Temperature 98.6 , Pulse 83 , B/P 115 /64 , Respiratory Rate 18 , O2 SAT 97 , Nasal Cannula, O2 Flow Rate 3 . Vital Sign Comment: Latest Quiroz Fall Score: 95 Fall Risk: High Risk Safety Measures: Call light Within Reach, Bed Alarm Zone 2, Side Rails Side Rails x3, Bed position Low and Locked. Fall Precautions: Door Sign Patient Fall Education Report given to Lu BARKLEY.
[2020-09-06 08:00] VITALS: BP 107/63
[2020-09-06] MEDS: Tamsulosin 0.4mg cap ORAL SCH (08:17)
[2020-09-06] MEDS: Donepezil 10mg tab ORAL SCH (08:17)
--- NOTE | 2020-09-06 08:30 | NUR ---
NURSE NOTES: Covid resurt was negative yesterday. SONJA Carrasquillo ordered remove isolation.
--- NOTE | 2020-09-06 08:32 | NUR ---
*-*DISCHARGE PLANNING*-* PATIENT HAS BEEN ACCEPTED BACK TO: [facility] P: [phone] ROOM#19.A
--- NOTE | 2020-09-06 08:50 | Nephrology Progress Note ---
Assessment/Plan Plan #SOILA - pre-renal azotemia #HTN #right femur fracture #dementia #Hypothyroidism - IVF - pain control - ortho eval - s/p right hip surgery - flomax - monitor BP - levothyroxine time spent 65min Subjective ROS Limited/Unobtainable: No Constitutional: Reports: weakness HEENT: Denies: no symptoms, eye pain, blurred vision, tearing, double vision, ear pain, ear discharge, nose pain, nose congestion, throat pain, throat swelling, mouth pain, mouth swelling, other Genitourinary: Denies: no symptoms, burning, discharge, frequency, flank pain, hematuria, incontinence, pain, urgency, other Neurologic/Psychiatric: Denies: no symptoms, anxiety, depressed, emotional problems, headache, numbness, paresthesia, pre-existing deficit, seizure, tingling, tremors, weakness, other Subjective evaluated by ortho today s/p right hip surgery Objective Objective Last 24 Hour Vital Signs Date Time Temp Pulse Resp B/P (MAP) Pulse Ox O2 Delivery O2 Flow Rate FiO2 09/06/20 04:00 98.6 83 18 115/64 (81) 97 09/06/20 00:00 98.9 87 20 111/57 (75) 97 09/05/20 21:00 Room Air 09/05/20 20:00 98.9 89 20 110/61 (77) 98 09/05/20 16:00 97.7 86 16 122/58 (79) 98 09/05/20 15:50 97.9 82 18 109/53 100 Nasal Cannula 3 09/05/20 15:40 81 16 108/54 100 Nasal Cannula 3 09/05/20 15:37 51 14 09/05/20 15:25 81 15 109/55 100 Nasal Cannula 3 09/05/20 15:10 80 19 104/54 100 Simple Mask 6 09/05/20 15:00 79 14 103/53 100 Simple Mask 6 09/05/20 14:50 78 24 105/53 100 Simple Mask 6 09/05/20 14:50 65 14 100 09/05/20 14:45 79 21 107/56 100 Simple Mask 6 09/05/20 14:40 97.5 55 14 104/55 100 Simple Mask 6 09/05/20 09:00 Room Air Intake and Output 09/05/20 09/06/20 19:00 07:00 Intake Total 550 ml 825 ml Output Total 210 ml 700 ml Balance 340 ml 125 ml IV Total 550 ml 825 ml Output Urine Total 200 ml 700 ml Estimated Blood Loss 10 ml # Voids 1 # Bowel Movements 1 Laboratory Tests 09/06/20 06:05: White Blood Count 6.8, Red Blood Count 2.74L, Hemoglobin 8.6L, Hematocrit 26.5L, Mean Corpuscular Volume 97, Mean Corpuscular Hemoglobin 31.3H, Mean Corpuscular Hemoglobin Concent 32.3, Red Cell Distribution Width 13.1, Platelet Count 178, Mean Platelet Volume 6.7, Neutrophils (%) (Auto) 76.2H, Lymphocytes (%) (Auto) 15.5L, Monocytes (%) (Auto) 6.6, Eosinophils (%) (Auto) 0.8, Basophils (%) (Auto) 1.0, Sodium Level 140, Potassium Level 4.4, Chloride Level 109H, Carbon Dioxide Level 21, Anion Gap 10, Blood Urea Nitrogen 27H, Creatinine 1.2, Estimat Glomerular Filtration Rate 43.1, Glucose Level 122H, Calcium Level 7.9L, Phosphorus Level 3.0, Magnesium Level 2.4 Height (Feet): 5 Height (Inches): 1.00 Weight (Pounds): 92 Objective General Appearance: no apparent distress, alert Lines, tubes and drains: peripheral HEENT: normocephalic, atraumatic Neck: non-tender Respiratory/Chest: chest wall non-tender, lungs clear, normal breath sounds Cardiovascular/Chest: normal peripheral pulses, normal rate, regular rhythm Abdomen: normal bowel sounds, non tender, soft Neurologic: alert, oriented x 3 Musculoskeletal: other - R hip pain Roz Mancilla M.D. Sep 06, 2020 08:50
--- NOTE | 2020-09-06 09:02 | 48 Hour Post Anesthesia Eval ---
Post Anesthesia Evaluation Procedure: r Hip ORIF Date of Evaluation: Sep 06, 2020 Time of Evaluation: 09:01 Blood Pressure Systolic: 115 0: 56 Pulse Rate: 72 Respiratory Rate: 18 Temperature (Fahrenheit): 97.6 O2 Sat by Pulse Oximetry: 98 Airway: patent Nausea: No Vomiting: No Pain Intensity: 2 Hydration Status: adequate Cardiopulmonary Status: stable Mental Status/LOC: patient returned to baseline Follow-up Care/Observations: n/a Post-Anesthesia Complications: none Follow-up care needed: N/A Jigar Hunter MD Sep 06, 2020 09:02
--- NOTE | 2020-09-06 09:22 | Cardiology Progress Note ---
Assessment/Plan Status: stable Assessment/Plan 1. R hip fracture 2/2 mechanical fall s/p ORIF, gamma nail 09/05/20 2. HFpEF, chronic diastolic HF with preserved EF 60% BNP elevated 2254, diastolic dysfunction IV Lasix for diuresis as needed 3. Hypertension 4. Dementia 5. Abnormal EKG 6. Frailty Doing well s/p orthopedic surgery and R hip gamma nail. SBP and HR controlled, in SR. Subjective ROS Limited/Unobtainable: No Subjective Appears comfortable s/p R hip ORIF, breathing room air Objective Last 24 Hour Vital Signs Date Time Temp Pulse Resp B/P (MAP) Pulse Ox O2 Delivery O2 Flow Rate FiO2 09/06/20 09:02 72 18 98 09/06/20 04:00 98.6 83 18 115/64 (81) 97 09/06/20 00:00 98.9 87 20 111/57 (75) 97 09/05/20 21:00 Room Air 09/05/20 20:00 98.9 89 20 110/61 (77) 98 09/05/20 16:00 97.7 86 16 122/58 (79) 98 09/05/20 15:50 97.9 82 18 109/53 100 Nasal Cannula 3 09/05/20 15:40 81 16 108/54 100 Nasal Cannula 3 09/05/20 15:37 51 14 09/05/20 15:25 81 15 109/55 100 Nasal Cannula 3 09/05/20 15:10 80 19 104/54 100 Simple Mask 6 09/05/20 15:00 79 14 103/53 100 Simple Mask 6 09/05/20 14:50 78 24 105/53 100 Simple Mask 6 09/05/20 14:50 65 14 100 09/05/20 14:45 79 21 107/56 100 Simple Mask 6 09/05/20 14:40 97.5 55 14 104/55 100 Simple Mask 6 General Appearance: no apparent distress EENT: PERRL/EOMI Neck: no JVD Rhythm: NSR Cardiovascular: normal rate, regular rhythm Respiratory/Chest: no respiratory distress, no accessory muscle use Extremities: trace edema Neurologic: normal mood/affect Intake and Output 09/05/20 09/06/20 19:00 07:00 Intake Total 550 ml 825 ml Output Total 210 ml 700 ml Balance 340 ml 125 ml IV Total 550 ml 825 ml Output Urine Total 200 ml 700 ml Estimated Blood Loss 10 ml # Voids 1 # Bowel Movements 1 Laboratory Tests Test 09/06/20 06:05 White Blood Count 6.8 K/UL (4.8-10.8) Red Blood Count 2.74 M/UL (4.20-5.40) L Hemoglobin 8.6 G/DL (12.0-16.0) L Hematocrit 26.5 % (37.0-47.0) L Mean Corpuscular Volume 97 FL (80-99) Mean Corpuscular Hemoglobin 31.3 PG (27.0-31.0) H Mean Corpuscular Hemoglobin Concent 32.3 G/DL (32.0-36.0) Red Cell Distribution Width 13.1 % (11.6-14.8) Platelet Count 178 K/UL (150-450) Mean Platelet Volume 6.7 FL (6.5-10.1) Neutrophils (%) (Auto) 76.2 % (45.0-75.0) H Lymphocytes (%) (Auto) 15.5 % (20.0-45.0) L Monocytes (%) (Auto) 6.6 % (1.0-10.0) Eosinophils (%) (Auto) 0.8 % (0.0-3.0) Basophils (%) (Auto) 1.0 % (0.0-2.0) Sodium Level 140 MMOL/L (136-145) Potassium Level 4.4 MMOL/L (3.5-5.1) Chloride Level 109 MMOL/L (98-107) H Carbon Dioxide Level 21 MMOL/L (21-32) Anion Gap 10 mmol/L (5-15) Blood Urea Nitrogen 27 mg/dL (7-18) H Creatinine 1.2 MG/DL (0.55-1.30) Estimat Glomerular Filtration Rate 43.1 mL/min (>60) Glucose Level 122 MG/DL (74-106) H Calcium Level 7.9 MG/DL (8.5-10.1) L Phosphorus Level 3.0 MG/DL (2.5-4.9) Magnesium Level 2.4 MG/DL (1.8-2.4) Microbiology Date/Time Source Procedure Growth Status 09/03/20 21:35 Nasopharynx Coronavirus COVID-19 PCR ([facility]) - Final Complete Anahi Marquez PA-C Sep 06, 2020 09:22
--- NOTE | 2020-09-06 10:48 | NUR ---
ROAD SERVICE LOCKSMITH NOTE SW met w/ pt and discussed the importance of using DME and asking for assistance when pt is recovering from surgery. Pt presents as A&O3x and pleasant. Pt recalled the fall incident at SNF, admitting that she utilized a walker without asking for assistance. Pt has fair insight of the risk/consequence of fall. Pt did not recall her surgery yesterday. This SW informed her surgery was done yesterday and that she will need to be very careful while recovery and post recovery. SW encouraged pt to ask for assistance while IP and when dc to SNF. Pt verbalized understanding.
--- NOTE | 2020-09-06 10:53 | Pulmonology Progress Note ---
Subjective ROS Limited/Unobtainable: No Interval Events: feels better Constitutional: Reports: no symptoms HEENT: Repors: no symptoms Respiratory: Reports: no symptoms Cardiovascular: Reports: no symptoms Gastrointestinal/Abdominal: Reports: no symptoms Allergies: Coded Allergies: No Known Allergies (Unverified , 08/24/20) Objective Last 24 Hour Vital Signs Date Time Temp Pulse Resp B/P (MAP) Pulse Ox O2 Delivery O2 Flow Rate FiO2 09/06/20 09:02 72 18 98 09/06/20 09:00 Room Air 09/06/20 08:00 98.0 91 19 107/63 (78) 98 09/06/20 04:00 98.6 83 18 115/64 (81) 97 09/06/20 00:00 98.9 87 20 111/57 (75) 97 09/05/20 21:00 Room Air 09/05/20 20:00 98.9 89 20 110/61 (77) 98 09/05/20 16:00 97.7 86 16 122/58 (79) 98 09/05/20 15:50 97.9 82 18 109/53 100 Nasal Cannula 3 09/05/20 15:40 81 16 108/54 100 Nasal Cannula 3 09/05/20 15:37 51 14 09/05/20 15:25 81 15 109/55 100 Nasal Cannula 3 09/05/20 15:10 80 19 104/54 100 Simple Mask 6 09/05/20 15:00 79 14 103/53 100 Simple Mask 6 09/05/20 14:50 78 24 105/53 100 Simple Mask 6 09/05/20 14:50 65 14 100 09/05/20 14:45 79 21 107/56 100 Simple Mask 6 09/05/20 14:40 97.5 55 14 104/55 100 Simple Mask 6 Intake and Output 09/05/20 09/06/20 19:00 07:00 Intake Total 550 ml 825 ml Output Total 210 ml 700 ml Balance 340 ml 125 ml IV Total 550 ml 825 ml Output Urine Total 200 ml 700 ml Estimated Blood Loss 10 ml # Voids 1 # Bowel Movements 1 General Appearance: no acute distress Respiratory: lungs clear Cardiovascular: normal rate, regular rhythm Abdomen: soft, non tender Microbiology Date/Time Source Procedure Growth Status 09/03/20 21:35 Nasopharynx Coronavirus COVID-19 PCR ([facility]) - Final Complete Laboratory Tests 09/06/20 06:05: White Blood Count 6.8, Red Blood Count 2.74L, Hemoglobin 8.6L, Hematocrit 26.5L, Mean Corpuscular Volume 97, Mean Corpuscular Hemoglobin 31.3H, Mean Corpuscular Hemoglobin Concent 32.3, Red Cell Distribution Width 13.1, Platelet Count 178, Mean Platelet Volume 6.7, Neutrophils (%) (Auto) 76.2H, Lymphocytes (%) (Auto) 15.5L, Monocytes (%) (Auto) 6.6, Eosinophils (%) (Auto) 0.8, Basophils (%) (Auto) 1.0, Sodium Level 140, Potassium Level 4.4, Chloride Level 109H, Carbon Dioxide Level 21, Anion Gap 10, Blood Urea Nitrogen 27H, Creatinine 1.2, Estimat Glomerular Filtration Rate 43.1, Glucose Level 122H, Calcium Level 7.9L, Phosphorus Level 3.0, Magnesium Level 2.4 Current Medications Medications (Trade) Dose Ordered Sig/Demetrice Route PRN Reason Start Time Stop Time Status Last Admin Dose Admin Dextrose/ Electrolytes 1,000 ml @ 75 mls/hr [id number] IV 09/05/20 15:00 10/05/20 14:59 09/06/20 04:01 Donepezil HCl (Aricept) 10 mg DAILY ORAL 09/04/20 09:00 10/04/20 08:59 09/06/20 08:17 Ferrous Sulfate (Feosol) 325 mg TWICE A DAY ORAL 09/04/20 09:00 12/03/20 08:59 09/06/20 08:17 Gabapentin (Neurontin) 100 mg THREE TIMES A DAY ORAL 09/04/20 09:00 10/04/20 08:59 09/06/20 08:17 Levothyroxine Sodium (Synthroid) 50 mcg BEFORE BREAKFAST ORAL 09/04/20 06:30 10/04/20 06:29 09/06/20 05:56 Mirtazapine (Remeron) 15 mg BEDTIME ORAL 09/04/20 21:00 12/03/20 20:59 09/05/20 21:18 Morphine Sulfate (Morphine Sulfate) 2 mg Q6H PRN IVP For Pain 09/03/20 22:45 09/10/20 22:44 Tamsulosin HCl (Flomax) 0.4 mg DAILY ORAL 09/04/20 09:00 10/04/20 08:59 09/06/20 08:17 Assessment/Plan Assessment/Plan 1. Right hip fracture -"Perioperative cardiac risk is low to intermediate given available test results" per cardio - s/p right hip surgery - pt stable without pain - Encourage incentive spirometer use 2. Hypertension -We will continue home antihypertensives 3. SOILA - IVF 4. Malnutrition - Will get ST eval after surgery - Pt missing several teeth DVT ppx - Lovenox 30 mg QD Will get PT eval, dc'd fluids and Cabrera Plan to DC tomorrow The care for this patient was discussed with my supervising physician. Time spent for this case was approximately 31 minutes Duarte Carrasquillo Sep 06, 2020 10:53
[2020-09-06 12:00] VITALS: BP 110/71
[2020-09-06] MEDS ORDERED: LOVENOX10 MG SUBQ (12:22)
[2020-09-06] MEDS ORDERED: MORPHINE 22 MG/1 ML IVP (12:22)
--- NOTE | 2020-09-06 13:03 | NUR ---
P.T Note: P.T evaluation completed and initiated. Please refer to P.T evaluation for current functional status.
--- NOTE | 2020-09-06 13:05 | NUR ---
CASE MANAGEMENT:REVIEW 09/06/20 POD #1 S/P RT HIP ORIF DISCHARGE BACK TO [facility]
--- NOTE | 2020-09-06 13:06 | NUR ---
*-*DISCHARGE PLANNED*-* PATIENT HAS BEEN ACCEPTED AND WILL BE DISCHARGED BACK TO: [facility] P: [phone] FOR NURSE TO NURSE REPORT ROOM#19.[facility] SET FOR 2:45PM S/W [id number]. S/W PATIENTS FAMILY ON FACE-SHEET, CASSY MCDONALD, WHO IS IN AGREEMENT WITH DISCHARGE PLAN.
--- NOTE | 2020-09-06 13:37 | NUR ---
NURSE NOTES: SONJA Carrasquillo called and cancelled discharge today. SONJA said pt will be d/c tomorrow.
[2020-09-06 16:00] VITALS: BP 93/53
--- NOTE | 2020-09-06 18:03 | NUR ---
[employer]UR[employer]IC[employer]/REVIEW faxed to [facility]#[phone] fax# [phone]
--- NOTE | 2020-09-06 19:01 | NUR ---
NURSE HAND-OFF: Important Events on Shift:Cabrera catheter removed @1430 Patient Status: stable Diet: regular Pending Orders: n/a Pending Results/Labs:n/a Pending MD notification:n/a Latest Vital Signs: Temperature 96.7 , Pulse 93 , B/P 93 /53 , Respiratory Rate 18 , O2 SAT 95 , Nasal Cannula, O2 Flow Rate 3 . Vital Sign Comment: stable Latest Quiroz Fall Score: 95 Fall Risk: High Risk Safety Measures: Call light Within Reach, Bed Alarm Zone 2, Side Rails Side Rails x3, Bed position Low and Locked. Fall Precautions: Door Sign Patient Fall Education Report given to WILLIAM Morales.
[2020-09-06 20:00] VITALS: BP 100/55
--- NOTE | 2020-09-06 20:00 | NUR ---
NURSE NOTES: RECEIVED PATIENT LYING IN BED, APPEAR TO BE ASLEEP, AWAKENED TO NAME, ABLE TO VERBALIZE SIMPLE NEEDS, S/P RIGHT HIP ORIF, X3 DRESSINGS INTACT, RIGHT HIP DRESSING NOTED WITH MINIMAL DRAINAGE/ RIGHT LATERAL THIGH X2 DRESSINGS DRY AND INTACT, NO STAIN NOTED. IV INTACT TO RIGHT WRIST/GAUGE 22, LEFT WRIST GAUGE 22, NO SWELLING/REDNESS NOTED, SALINE LOCK. NO SIGNS AND SYMPTOMS OF ACUTE CARDIO RESPIRATORY DISTRESS/SHORTNESS OF BREATH, DENIES CHEST PAIN, NO PERIPHERAL EDEMA NOTED. NO REPORT OF GI DISCOMFORT, NO N/V/D. SIDE RAILS UP X3, BED IN LOWEST POSITION FOR SAFETY, ENCOURAGED PATIENT TO UTILIZE CALL LIGHT FOR ASSISTANCE, VERBALIZED UNDERSTANDING, CONTINUE WITH CURRENT PLAN OF CARE. NAD.
[2020-09-07] VITALS: BP 106/59
[2020-09-07 04:00] VITALS: BP 111/64
--- NOTE | 2020-09-07 07:40 | NUR ---
NURSE NOTES: Received report from WILLIAM Morales. Pt is a/o x 3. No SOB noted. Denies any pain at this time. Surgical site dressing is dry/intact. Lt and Rt wrist IV access are in placed. Bed in lowest position, call light within reach. Will continue to monitor.
--- NOTE | 2020-09-07 07:53 | NUR ---
NURSE HAND-OFF: Important Events on Shift:[PATIENT URINATED AT 2300, INCONTINENT PAD SATURATED] Patient Status: [STABLE, SLEPT IN LONG INTERVALS] Diet: [REGULAR] Pending Orders: [N/A] Pending Results/Labs:[] Pending MD notification:[] Latest Vital Signs: Temperature 98.9 , Pulse 91 , B/P 111 /64 , Respiratory Rate 17 , O2 SAT 97 , Nasal Cannula, O2 Flow Rate 3 . Vital Sign Comment: [STABLE, AFEBRILE] Latest Quiroz Fall Score: 95 Fall Risk: High Risk Safety Measures: Call light Within Reach, Bed Alarm Zone 2, Side Rails Side Rails x3, Bed position Low and Locked. Fall Precautions: Door Sign Patient Fall Education Report given to [FILIPPO ROSSI].
[2020-09-07 08:00] VITALS: BP 109/63
[2020-09-07] MEDS: Tamsulosin 0.4mg cap ORAL SCH (08:16)
[2020-09-07] MEDS: Donepezil 10mg tab ORAL SCH (08:17)
--- NOTE | 2020-09-07 08:47 | NUR ---
*-*DISCHARGE PLANNED*-* PATIENT HAS BEEN ACCEPTED AND WILL BE DISCHARGED BACK TO: [facility] P: [phone] FOR NURSE TO NURSE REPORT ROOM#19.[facility] SET FOR 9:45PM S/W PATIENTS FAMILY ON FACE-SHEET, CASSY MCDONALD, WHO IS IN AGREEMENT WITH DISCHARGE PLAN.
[2020-09-07] MEDS ORDERED: Enoxaparin 30mg Inj SUBQ SCH (09:00)
--- NOTE | 2020-09-07 09:53 | Nephrology Progress Note ---
Assessment/Plan Plan #SOILA - pre-renal azotemia #HTN #right femur fracture #dementia #Hypothyroidism - IVF - pain control - ortho eval - s/p right hip surgery - flomax - monitor BP - levothyroxine time spent 65min Subjective Subjective evaluated by ortho today s/p right hip surgery Objective Objective Last 24 Hour Vital Signs Date Time Temp Pulse Resp B/P (MAP) Pulse Ox O2 Delivery O2 Flow Rate FiO2 09/07/20 08:00 97.9 97 18 109/63 (78) 95 09/07/20 04:00 98.9 91 17 111/64 (80) 97 09/07/20 00:00 98.8 86 18 106/59 (75) 96 09/06/20 21:00 Room Air 09/06/20 20:00 98.9 92 18 100/55 (70) 95 09/06/20 16:00 96.7 93 18 93/53 (66) 95 09/06/20 12:00 97.7 89 18 110/71 (84) 98 Intake and Output 09/06/20 09/07/20 19:00 07:00 Intake Total 575 ml 120 ml Output Total 300 ml Balance 275 ml 120 ml Intake Oral 120 ml IV Total 375 ml Other 200 ml Output Urine Total 300 ml # Voids 3 Height (Feet): 5 Height (Inches): 1.00 Weight (Pounds): 92 Objective General Appearance: no apparent distress, alert Lines, tubes and drains: peripheral HEENT: normocephalic, atraumatic Neck: non-tender Respiratory/Chest: chest wall non-tender, lungs clear, normal breath sounds Cardiovascular/Chest: normal peripheral pulses, normal rate, regular rhythm Abdomen: normal bowel sounds, non tender, soft Neurologic: alert, oriented x 3 Musculoskeletal: other - R hip pain Roz Mancilla M.D. Sep 07, 2020 09:52
--- NOTE | 2020-09-07 09:56 | NUR ---
*-*DISCHARGE PLANNED*-* PATIENT HAS BEEN ACCEPTED AND WILL BE DISCHARGED BACK TO: [facility] P: [phone] FOR NURSE TO NURSE REPORT ROOM#19.[facility] SET FOR 9:45AM S/W PATIENTS FAMILY ON FACE-SHEET, CASSY MCDONALD, WHO IS IN AGREEMENT WITH DISCHARGE PLAN.
--- NOTE | 2020-09-07 10:00 | NUR ---
NURSE NOTES: Report was given to WILLIAM Bueno @ [facility] mehran mak.
--- NOTE | 2020-09-07 10:20 | NUR ---
NURSE NOTES: Spoke to SONJA Carrasquillo regarding that SNF cannot administer morphine every shift. SONJA Carrasquillo discontinue Morphine IVP PRN.
[2020-09-07 11:04] LABS: CALCIUM 8.1 MG/DL (8.5-10.1); CREATININE 1.1 MG/DL (0.55-1.30); POTASSIUM 4.5 MMOL/L (3.5-5.1)
--- NOTE | 2020-09-07 11:50 | NUR ---
NURSE NOTES: Belongings confirmed. IV/ID removed. Pt discharged with ambulance personnel in stable condition. Addendum: 09/07/20 at 1154 by Kim Quick RN ADDENDUM Called the son, Mr Wong and let him know that pt just left.
--- NOTE | 2020-09-07 13:39 | NUR ---
[employer]URANCE [employer]INICALS/REVIEW faxed to [facility]#[phone] fax# [phone]
--- NOTE | 2020-09-11 12:30 | Discharge Summary ---
Discharge Summary Discharge Summary _ Date of admission: 09/03/2020 Date of discharge: 09/07/[address] Fernandes History of Present Illness and Brief Hospital Course Ms. Wong is an 80-year-old female from SNF with past medical history of hypertension, and dementia, who presented to ED after a mechanical fall. Patient presented with right hip pain with shortening of the right leg. X-ray of the hip revealed a right femur fracture. CT of pelvis showed right femur intertrochanteric fracture. Of note, she tested negative for COVID-19 on 08/24/2020 at her facility. She was given IV fluids and pain medication and was admitted to the hospital for surgery. Patient was evaluated by a clerk supervisor for preop clearance. Patient was unable to tolerate Lexiscan due to acute right hip fracture and therefore coronary circulation status remained unknown. Perioperative cardiac risk was low to intermediate given available test results and reasonable need for timely surgical intervention. Systolic blood pressure and heart rate were in the normal territory without significant valvular disease, and well-preserved left ventricular function with normal ejection fraction. Patient was taken to the OR for open reduction and internal fixation of right intertrochanteric hip fracture with intramedullary device. Patient tolerated the operation well and was taken to recovery room. The details of the operation can be found in the operative notes by Dr. Wang. Patient was closely monitored post surgery. Patient did not complain of chest pain or pain on surgery site. Patient was medically stable for discharge and was discharged back to SNF on 09/07/2020 in stable condition. Consultants: Cardiology [facility] Orthopedics Dr. Wang Nephrology Dr. Mancilla Discharge Condition Improved and stable Discharge Activity Advance as tolerated Discharge Diet Regular Final diagnoses Right intertrochanteric hip fracture secondary to mechanical fall s/p ORIF, gamma nail on 09/05/2020 Heart failure with preserved ejection fraction, EF 60% Chronic diastolic heart failure Hypertension Dementia Osteoporosis SOILA Prerenal azotemia Hypothyroidism Severe protein/calorie malnutrition I have been assigned to dictate discharge summary for this account. Duarte Carrasquillo Sep 11, 2020 12:30
== END 2020-09-07 11:50 | DRG 480 ==
LOC: EDBD 19:22 → EMR 19:57 → 4E 21:20 → EDBEDREQ 21:33
PROC: 0QS606Z Reposition Right Upper Femur with Intramedullary Internal Fixation Device, Open Approach (ICD-10-PCS; principal; 2020-09-05 13:30)
DX: S72.141A Displaced intertrochanteric fracture of right femur, initial encounter for closed fracture (principal); E43 Unspecified severe protein-calorie malnutrition; N17.9 Acute kidney failure, unspecified; I50.32 Chronic diastolic (congestive) heart failure; Z68.1 Body mass index [BMI] 19.9 or less, adult; W19.XXXA Unspecified fall, initial encounter; G30.9 Alzheimer's disease, unspecified; F02.80 Dementia in other diseases classified elsewhere, unspecified severity, without behavioral disturbance, psychotic disturbance, mood disturbance, and anxiety; I11.0 Hypertensive heart disease with heart failure; E03.9 Hypothyroidism, unspecified; F03.90 Unspecified dementia, unspecified severity, without behavioral disturbance, psychotic disturbance, mood disturbance, and anxiety; M81.0 Age-related osteoporosis without current pathological fracture
CPT/HCPCS: 36415; 71045; 72192; 76000; 76770; 80048; 80053; 83735; 83880; 84100; 84484; 85007; 85025; 85610; 85730; 93005; 93306; 94003; 94150; 96361; 96374; 99285; J2370; J7030